=== PATIENT | male | born 1945 | race Caucasian/White ===

== ENCOUNTER 2024-02-10 12:10 | Emergency (ER) | payer MEDICARE, BC, SELFPAY ==
--- NOTE | 2024-02-10 12:54 | XR_ITS ---
Examination: CT abdomen with intravenous contrast CT pelvis with intravenous contrast 2-D coronal reconstructions 2-D sagittal reconstructions Date and time of exam:February 10, 2024 1459 hours INDICATIONS: Onset abdominal pain this week. CTDI: vol (mGy) 6.23 DLP: (mGycm) 369 COMPARISON: May 23, 2020 Technique: Multiple axial sections of the abdomen and pelvis have been obtained. 64 slice high-resolution scanner used. 3 mm axial sections have been obtained, post intravenous injection 60 cc [id number]-[id number] 2-D sagittal, coronal reconstructions obtained. Low dose protocols were performed. One or more of the following dose reduction techniques were used; automated exposure control, adjustment of the mA and/or KV according to patient size, use of iterative reconstruction technique. Findings: Atelectasis in the left lower lobe Intrahepatic biliary tract dilatation, mild Pneumobilia Stent satisfactory position Spleen not enlarged Pancreatic head is prominent, axial image 84 with necrotic center, AP dimension of the pancreatic head at least 39 mm No renal or ureteral calculi, no hydronephrosis Aorta normal size Normal appendix No bowel obstruction Urinary bladder intact Fat-containing inguinal hernia Diffuse advanced lumbar degenerative disc disease IMPRESSION: Enlarged pancreatic head with necrotic center as above Recommend MRI abdomen pancreas follow-up pre and postcontrast
[2024-02-10 13:31] LABS: Basophils # (Auto) 0.1 Thou/mm3 (0.0-0.2); Basophils % (Auto) 1 % (0-2.5); Eosinophils # (Auto) 0.1 Thou/mm3 (0.0-0.5); Eosinophils % (Auto) 1 % (0-10); Hematocrit 35.4 % (41.0-53.0); Hemoglobin 12.7 g/dL (13.5-16.0); Immature Granulocytes % (Auto) 1 % (0-0); Immature Granulocytes Auto 0.07 Thou/mm3 (0.00-0.00); Lymphocytes # (Auto) 0.7 Thou/mm3 (1.0-4.8); Lymphocytes % (Auto) 6 % (10-50); Mean Corpuscular HGB Conc 35.9 g/dl (31.0-37.0); Mean Corpuscular Hemoglobin 32.5 pg (25.0-35.0); Mean Corpuscular Volume 91 fL (80-100); Monocytes # (Auto) 0.9 Thou/mm3 (0.0-0.8); Monocytes % (Auto) 8 % (0-12); Neutrophils # (Auto) 9.3 Thou/mm3 (1.8-7.7); Neutrophils % (Auto) 84 % (37-80); Nucleated Red Blood Cell % 0 /100 WBC (0); Platelet Count 245 Thou/mm3 (140-440); RDW Standard Deviation 43.3 fL (35.1-43.9); Red Blood Count 3.91 Miln/mm3 (4.50-5.90); White Blood Count 11.1 Thou/mm3 (3.8-10.6)
[2024-02-10 13:45] LABS: Sed Rate (ESR) 58 mm/hr (0-20)
[2024-02-10 13:52] LABS: Alanine Aminotransferase 171 U/L (10-49); Albumin, Serum 4.1 gm/dL (3.4-4.8); Anion Gap 4 (7-16); Aspartate Amino Transferase 146 U/L (0-34); BUN/Creatinine Ratio 24 Ratio (12-20); Bilirubin,Total 1.2 mg/dL (0.3-1.2); Blood Urea Nitrogen 17 mg/dL (9-23); C-Reactive Protein 3.8 mg/dL (0.0-0.9); Calcium 8.9 mg/dL (8.3-10.6); Chloride 98 mMol/L (98-107); Creatinine (Component) 0.7 mg/dL (0.6-1.3); Glucose 178 mg/dL (74-106); Magnesium 1.9 mg/dL (1.6-2.6); Osmolality,Calculated 260 (275-295); Potassium 4.1 mMol/L (3.4-5.1); Sodium 127 mMol/L (136-145); Total Protein 6.9 gm/dL (5.7-8.2); eGFR > 60 See Note
[2024-02-10 13:53] LABS: Albumin/Globulin Ratio 1.5 (1.2-2.2); Alkaline Phosphatase 606 U/L (46-116); Amylase < 20 U/L (30-118); Calcium (Corrected) 8.9 mg/dL (8.5-10.1); Globulin 2.8 gm/dL (2.3-3.5); Lipase 21 U/L (12-53)
[2024-02-10 14:00] LABS: Procalcitonin 0.23 ng/ml (0.0-0.49)
[2024-02-10 14:53] LABS: Collection Type, Urine Clean Catch; Squamous Epithelial Cell,Urine 0 /hpf (0-5)
[2024-02-10 15:08] VITALS: BP 123/75; PULSE 81; RESP 18; TEMP 37.6; O2SAT 100; BMI 22.4
[2024-02-10 15:19] LABS: Bilirubin,Urine Negative (Negative); Blood,Urine Negative (Negative); Clarity,Urine Clear (Clear/Hazy); Color,Urine Lt-Yellow (Lt Yel-Yel); Glucose, Urine Negative (Negative); Ketones,Urine Negative (Negative); Leukocyte Esterase,Urine Negative (Negative); Nitrite,Urine Negative (Negative); PH,Urine 6.5 (5.0-7.0); Protein,Urine Negative (Neg - Trace); RBC,Urine 1 /hpf (0-3); Specific Gravity,Urine 1.008 (1.001-1.035); Urobilinogen,Urine Negative mg/dL (0.0-1.0); WBC,Urine 1 /hpf (0-5)
--- NOTE | 2024-02-10 15:57 | PD.EDABDPN ---
ED Abdominal Pain RME/HPI General Chief Complaint: Abdominal Pain Stated complaint: ABD PAIN, FEVER, CONFUSION, SHAKING Time seen by provider: 02/10/24 12:53 Arrival date/time: 02/10/24 12:10 RME / HPI RME / HPI narrative: This section includes all my notes and documentations, including HPI, PE, and ED course.? Cullen Castillo MD HPI: 78 year old male with history of chronic pancreatitis here with a couple day history of abdominal pain. Has trouble localizing the pain. Has difficulty describing the quality and quantity of the pain. Uncertain about exacerbating factors and relieving factors. No vomiting. No fever. Eating normally. Scared due to his chronic pancreatitis. No other complaints. ROS: All negative except as documented in HPI. Physical Exam: General:? Alert and oriented.? No acute distress when remaining still. Eyes:? Conjunctivae and lids clear.?? ENT:? No nasal congestion.? Neck:? Supple.?? Heart:? RRR.? Lungs:? No respiratory distress.? Good air movement.? No rhonchi, wheezing, rales.?? Abdomen:? Soft and nontender.? Normal bowel sounds.? No distension.? No rebound or guarding.?? Back:? No CVA tenderness.?? Skin:? Warm and dry.?? Neuro:? Alert and oriented X 3. I reviewed all diagnostic test results. My review of the abdominal CT report is no acute findings. Blood tests and urine tests are unremarkable. At this point, diagnoses include?chronic pancreatitis. No treatment here. He remained stable. Recommended more outpatient workup. Based on my best medical judgment, made decision no further evaluation or treatment indicated at this time.? Patient understands and agrees to the discharge instructions customized and printed, see below. Discharge Instructions from Dr. Castillo printed for you: 1. After extensive evaluation, your symptoms are most likely due to your chronic pancreatitis. 2. There is no emergency needing urgent surgery or intervention or hospitalization or transfer to another institution. 3. Try clear liquid diet for 24 hours then advance diet slowly as tolerated. Zofran for nausea/vomiting. For good hydration, increase oral fluid and maintain clear urine. If dark or yellow, increase oral fluid. Tylenol with codeine for severe pain. 4. See a private doctor on 02/11/2024. Ask to review all test results and official radiology reports, to make sure you receive all necessary follow-ups and monitoring. Ask for help with MRI imaging of your pancreas for better assessment. And ask for help seeing your specialists at [facility]. 5. Seek immediate medical care with worsening or with any concerns. Cullen Castillo MD Discharge Instructions from Dr. Castillo printed for you: 1. After extensive evaluation, your symptoms are most likely due to your chronic pancreatitis. 2. There is no emergency needing urgent surgery or intervention or hospitalization or transfer to another institution. 3. Try clear liquid diet for 24 hours then advance diet slowly as tolerated. Zofran for nausea/vomiting. For good hydration, increase oral fluid and maintain clear urine. If dark or yellow, increase oral fluid. Tylenol with codeine for severe pain. 4. See a private doctor on 02/11/2024. Ask to review all test results and official radiology reports, to make sure you receive all necessary follow-ups and monitoring. Ask for help with MRI imaging of your pancreas for better assessment. And ask for help seeing your specialists at [facility]. 5. Seek immediate medical care with worsening or with any concerns. Related Data Home Medications ?Medication ?Instructions ?Recorded ?Confirmed insulin glargine U-300 conc 300 25 unit subcut QDAY 05/23/20 04/05/23 unit/mL (1.5 mL) subcutaneous pen (Toujeo SoloStar U-300 Insulin) levothyroxine 50 mcg tablet 50 mcg PO QDAY 05/23/20 04/05/23 (Levoxyl) tamsulosin 0.4 mg capsule (Flomax) 0.4 mg PO HS 05/23/20 04/05/23 insulin glargine U-300 conc 300 unit subcut 09/09/20 04/05/23 unit/mL (1.5 mL) subcutaneous pen (Toujeo SoloStar U-300 Insulin) multivit,Ca,min-iron 8 mg-folic 1 tab PO DAILY 09/09/20 04/05/23 acid 200 mcg-lycopene 600 mcg tablet (Centrum Ultra Men's) aspirin 81 mg tablet,delayed 81 mg PO QDAY 01/20/22 04/05/23 release atorvastatin 80 mg tablet 80 mg PO QDAY 01/20/22 04/05/23 carvedilol 3.125 mg tablet 3.125 mg PO BID 01/20/22 04/05/23 Previous Rx's ?Medication ?Instructions ?Recorded acetaminophen 300 mg-codeine 30 mg 2 tab PO TID PRN pain #20 tabs 02/10/24 tablet Allergies Allergy/AdvReac Type Severity Reaction Status Date / Time No Known Allergies Allergy Unknown Verified 04/05/23 09:04 Course Quality Measures none Orders Category Date Time Status CT Screening NOW Care 02/10/24 12:54 Completed Saline [Insert IV] NOW Care 02/10/24 12:[address] abdomen pelvis w con Stat Exams 02/10/24 12:54 Completed Amylase Stat Lab 02/10/24 13:20 Completed CBC Stat Lab 02/10/24 13:20 Completed CMP [Comprehensive Metabolic Panel] Stat Lab 02/10/24 13:20 Completed CRP [C-Reactive Protein] Stat Lab 02/10/24 13:20 Completed ESR [Sed Rate (ESR)] Stat Lab 02/10/24 13:20 Completed Lactate (Lactic Acid) Stat Lab 02/10/24 13:20 Completed Lipase Stat Lab 02/10/24 13:20 Completed Magnesium Stat Lab 02/10/24 13:20 Completed Procalcitonin Stat Lab 02/10/24 13:20 Completed UA [Urinalysis] Stat Lab 02/10/24 14:43 Completed Vital Signs Vital signs: Vital Signs Temperature 99.6 F 02/10/24 15:08 Pulse Rate 81 02/10/24 15:08 Respiratory Rate 18 02/10/24 15:08 Blood Pressure 123/75 02/10/24 15:08 Pulse Oximetry (%) 100 02/10/24 15:08 Oxygen Delivery Method Room Air 02/10/24 15:08 Abdominal Pain MDM Patient data External records reviewed:: [facility] previous records Clinical information provided by:: patient and spouse Social determinants that could affect healthcare access:: none Patient has the following chronic illnesses:: chronic pancreatitis How is presenting disease/condition affected by chronic disease/condition?: exacerbated by Evaluation data The following diagnostics were reviewed and interpreted by me:: lab results and radiology exam(s) Lab and/or radiology exams considered but not ordered:: none Interpretation Summary: chronic pancreatitis Medications / Prescriptions Medications or Prescriptions considered but not ordered:: none Medication administrations:: none Consultations Consultation(s) initiated? (list below): No Diagnosis Differential diagnosis abdominal pain: acute appendicitis, calculus of kidney, constipation, diverticulitis, gastroenteritis, pancreatitis and small bowel obstruction Most likely diagnosis given after review of the tests above:: chronic pancreatitis Admission Indicated Admission indicated?: not indicated Explain why admission is indicated or not indicated:: admission criteria not met Admission Request Was there a request for admission?: No Disposition Plan Disposition Plan: Discharge Discharge Attestation Discharge Attestation: The patient and all family members were given an opportunity to ask questions and understood the discharge instructions. Discharge instructions specifically effects, indications for sooner follow up or return to the emergency department, and the expected course of current diagnosis. Patient condition: Stable Discharge Plan Plan Patient Disposition: HOME (Self Care) Prescriptions/Referrals Prescriptions/Med Rec: New acetaminophen-codeine 300-30 mg tablet 2 tab PO TID MDD 6 PRN (Reason: pain) Qty: 20 0RF No Action aspirin 81 mg tablet,delayed release (DR/EC) 81 mg PO QDAY carvedilol 3.125 mg tablet 3.125 mg PO BID Rx Instructions: must administer with a meal/food atorvastatin 80 mg tablet 80 mg PO QDAY tamsulosin [Flomax] 0.4 mg Capsule 0.4 mg PO HS levothyroxine [Levoxyl] 50 mcg Tablet 50 mcg PO QDAY Toujeo SoloStar U-300 Insulin 300 unit/mL (1.5 mL) Insulin Pen 25 unit SUBCUT QDAY Patient Comments: STATES HE TAKES IT AT 1630 EVERY DAY Centrum Ultra Men's 8 mg iron- 200 mcg-600 mcg Tablet 1 tab PO DAILY Toujeo SoloStar U-300 Insulin 300 unit/mL (1.5 mL) insulin pen SUBCUT Referrals: Martinez Delgado MD [Primary Care Provider] - In 1 week Problem List Clinical Impression: Chronic pancreatitis Patient/Caregiver Discharge Instructions Discharge Activity: activity as tolerated Education Materials: ED Pancreatitis Additional Instructions: Discharge Instructions from Dr. Castillo printed for you: 1. After extensive evaluation, your symptoms are most likely due to your chronic pancreatitis. 2. There is no emergency needing urgent surgery or intervention or hospitalization or transfer to another institution. 3. Try clear liquid diet for 24 hours then advance diet slowly as tolerated. Zofran for nausea/vomiting. For good hydration, increase oral fluid and maintain clear urine. If dark or yellow, increase oral fluid. Tylenol with codeine for severe pain. 4. See a private doctor on 02/11/2024. Ask to review all test results and official radiology reports, to make sure you receive all necessary follow-ups and monitoring. Ask for help with MRI imaging of your pancreas for better assessment. And ask for help seeing your specialists at [facility]. 5. Seek immediate medical care with worsening or with any concerns. Print Language: Estonian Stand Alone Forms: Ana Award Info., Patient Portal Info Letter
== END 2024-02-10 16:21 | disposition home or self-care (01) ==
PROVIDERS: Emergency Provider Emergency Medicine; PCP Family Medicine
DX: K86.1 Other chronic pancreatitis (principal)
CPT/HCPCS: 36415; 74177; 80053; 81001; 82150; 83605; 83690; 83735; 84145; 85025; 85652; 86140; 99285; A4649; Q9967

== ENCOUNTER 2024-03-10 20:24 | Emergency (ER) | payer MEDICARE, BC, SELFPAY ==
[2024-03-10 20:25] VITALS: BMI 22.1
[2024-03-10 20:36] VITALS: BP 128/75; PULSE 105; RESP 20; TEMP 39.1; O2SAT 96
--- NOTE | 2024-03-10 20:42 | XR_ITS ---
Examination: PA chest single view Technique: Upright PA chest single view Exam date and time: March 10, 20242049 hrs. Comparison May 23, 2020 Indications: Sepsis today. Findings: No lobar pneumonia Minor subsegmental atelectasis left base Normal heart size Median sternotomy wires Impression: No pneumonia identified
--- NOTE | 2024-03-10 20:43 | PD.EDRME ---
Rapid Medical Screening Exam RME Arrival date/time: 03/10/24 20:24 Chief Complaint: General Adult/Misc Complain Time Seen by Provider: 03/10/24 20:27 Vital signs: Vital Signs Temperature 102.4 F H 03/10/24 20:36 Pulse Rate 105 H 03/10/24 20:36 Respiratory Rate 20 03/10/24 20:36 Blood Pressure 128/75 03/10/24 20:36 Pulse Oximetry (%) 96 03/10/24 20:36 Oxygen Delivery Method Room Air 03/10/24 20:36 E Narrative: Fever, mild cough, epigastric pain since yesterday.
--- NOTE | 2024-03-10 20:44 | EKG_ITS ---
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
[2024-03-10 20:49] VITALS: TEMP 39.1
[2024-03-10] MEDS: ACETAMINOPHEN 500 MG TABLET 1000 MG PO (20:49)
[2024-03-10 21:13] LABS: Lactate (Lactic Acid) 0.9 mMol/L (0.4-2.0)
[2024-03-10 21:15] LABS: Basophils # (Auto) 0.1 Thou/mm3 (0.0-0.2); Basophils % (Auto) 1 % (0-2.5); Eosinophils % (Auto) 0 % (0-10); Hematocrit 33.4 % (41.0-53.0); Hemoglobin 11.9 g/dL (13.5-16.0); Immature Granulocytes % (Auto) 1 % (0-0); Immature Granulocytes Auto 0.09 Thou/mm3 (0.00-0.00); Lymphocytes # (Auto) 0.4 Thou/mm3 (1.0-4.8); Lymphocytes % (Auto) 4 % (10-50); Mean Corpuscular HGB Conc 35.6 g/dl (31.0-37.0); Mean Corpuscular Hemoglobin 32.7 pg (25.0-35.0); Mean Corpuscular Volume 92 fL (80-100); Monocytes # (Auto) 1.3 Thou/mm3 (0.0-0.8); Monocytes % (Auto) 11 % (0-12); Neutrophils # (Auto) 9.6 Thou/mm3 (1.8-7.7); Neutrophils % (Auto) 83 % (37-80); Nucleated Red Blood Cell % 0 /100 WBC (0); Platelet Count 209 Thou/mm3 (140-440); Red Blood Count 3.64 Miln/mm3 (4.50-5.90); White Blood Count 11.5 Thou/mm3 (3.8-10.6)
[2024-03-10 21:42] LABS: Alanine Aminotransferase 128 U/L (10-49); Albumin, Serum 3.9 gm/dL (3.4-4.8); Albumin/Globulin Ratio 1.3 (1.2-2.2); Alkaline Phosphatase 684 U/L (46-116); Anion Gap 6 (7-16); Aspartate Amino Transferase 120 U/L (0-34); BUN/Creatinine Ratio 36 Ratio (12-20); Bilirubin,Total 3.2 mg/dL (0.3-1.2); Blood Urea Nitrogen 25 mg/dL (9-23); Calcium 8.7 mg/dL (8.3-10.6); Calcium (Corrected) 8.8 mg/dL (8.5-10.1); Carbon Dioxide 24.3 mMol/L (20.0-31.0); Chloride 96 mMol/L (98-107); Creatinine (Component) 0.7 mg/dL (0.6-1.3); Estimated Creatinine Clearance 77.8 mL/min (>60); Globulin 3.1 gm/dL (2.3-3.5); Glucose 245 mg/dL (74-106); Lipase 23 U/L (12-53); Osmolality,Calculated 265 (275-295); Potassium 4.2 mMol/L (3.4-5.1); Procalcitonin 0.57 ng/ml (0.0-0.49); Sodium 126 mMol/L (136-145); Troponin I < 0.020 ng/mL (0.0-0.045); eGFR > 60 See Note
[2024-03-10 21:47] VITALS: BP 121/63; PULSE 85; RESP 16; TEMP 37.8; O2SAT 96
[2024-03-10 21:49] VITALS: TEMP 37.8
--- NOTE | 2024-03-10 22:00 | PC.NURSE ---
PT TO ER WITH C/O FEVER CHILLS 3 DAYS. PT WHO IS AT BED STATES PT APPEARS TO BE LOOKING YELLOW AND FIRST NOTICED IT ABOUT 1 WEEK AGO. PT REPORTS HE HAS BEEN HAVING INTERMITTENT ABD PAIN X 1 WEEK. PT HAS HX OF BILIARY STENT PLACED 10/2020. A/OX4. PT PLACED ON [facility], CALL LIGHT WITHIN REACH. BED AT LOWEST POSITION
--- NOTE | 2024-03-10 22:05 | EDNOTE_ITS ---
ED General RME/HPI General Chief complaint: General Adult/Misc Complain Stated complaint: FEVER,ABD PAIN Time Seen by Provider: 03/10/24 20:27 Arrival date/time: 03/10/24 20:24 RME / HPI RME / HPI narrative: Fever, mild cough, epigastric pain since yesterday. ------- Dr. 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 Patient states he last took Tylenol at 1400. states she started noticing the patient was yellow 1 week ago. Patient endorses having intermittent mild abdominal pain for the last 1 week. Patient denies any nausea, vomiting or any other associated symptoms. No known allergies. Patient takes baby aspirin, but is no longer on Plavix. Related Data Home Medications ?Medication ?Instructions ?Recorded ?Confirmed insulin glargine U-300 conc 300 25 unit subcut QDAY 05/23/20 04/05/23 unit/mL (1.5 mL) subcutaneous pen (Toujeo SoloStar U-300 Insulin) levothyroxine 50 mcg tablet 50 mcg PO QDAY 05/23/20 04/05/23 (Levoxyl) tamsulosin 0.4 mg capsule (Flomax) 0.4 mg PO HS 05/23/20 04/05/23 insulin glargine U-300 conc 300 unit subcut 09/09/20 04/05/23 unit/mL (1.5 mL) subcutaneous pen (Toujeo SoloStar U-300 Insulin) multivit,Ca,min-iron 8 mg-folic 1 tab PO DAILY 09/09/20 04/05/23 acid 200 mcg-lycopene 600 mcg tablet (Centrum Ultra Men's) aspirin 81 mg tablet,delayed 81 mg PO QDAY 01/20/22 04/05/23 release atorvastatin 80 mg tablet 80 mg PO QDAY 01/20/22 04/05/23 carvedilol 3.125 mg tablet 3.125 mg PO BID 01/20/22 04/05/23 Previous Rx's ?Medication ?Instructions ?Recorded acetaminophen 300 mg-codeine 30 mg 2 tab PO TID PRN pain #20 tabs 02/10/24 tablet Allergies Allergy/AdvReac Type Severity Reaction Status Date / Time No Known Allergies Allergy Unknown Verified 03/10/24 20:27 Review of Systems Review of Systems Systems Reviewed: All systems reviewed, normal except as documented Narrative Review of Systems: Gen: + fever, + chills, no weight loss EYES: No discharge, no visual changes, no pain HEENT: No ear pain, no congestion, no sore throat PULM: No shortness of breath, no cough, no congestion CV: No chest pain, no dyspnea on exertion, no palpitations GI: No nausea, no vomiting, no diarrhea, + pain, no constipation : No frequency, no urgency, no dysuria Musc/skel: No joint pain, no back pain Skin: No rash. Warm and dry. + jaundice Psyc: No hallucinations, no depression Heme/Lymph: No easy bleeding or bruising tendencies Neuro: No weakness, no headache Past Medical History Past Medical History NEUROLOGIC: Negative Neurological Disorders, Alzheimer's Disease, Seizures or Amyotrophic Lateral Sclerosis (ALS/Ainsley Gehrig's) CARDIAC: Positive Cardiac Disorders; Negative Congestive Heart Failure, Edema, Cellulitis or Varicose Veins RESPIRATORY: Negative Chronic Obstructive Pulmonary Disease (COPD), Asthma, Bronchitis, Emphysema or Pulmonary Embolism GASTROINTESTINAL: Positive Gastrointestinal Disorders, Pancreatitis (HOSP) and Gall Bladder Disease (LAP 2020); Negative Hepatitis GENITOURINARY: Positive Genitourinary Disorders and Benign Prostatic Hyperplasia; Negative Renal Disease MUSCULOSKELETAL: Positive Musculoskeletal Disorders, Arthritis and Carpal Tunnel Syndrome (RIGHT) ENT: Positive Cataracts (ABNER) ENDOCRINE: Positive Endocrine Disorders, Diabetes Mellitus Type 1, Diabetes Mellitus Type 2 and Hypothyroidism ([facility]) HEMATOLOGIC: Negative Blood Disorders or Sickle Cell Disease OTHER HISTORY: Positive Hospitalization (HOSP FOR PANCREATITIS) and Chicken Pox; Negative Autoimmune Disease, Developmental Delay, Shingles, Falls, Blood Transfusions, Blood Transfusion Reaction, Anesthesia Reactions, Organ Transplant, Chemotherapy, MRSA, Measles, Mumps or Cancer Family History FAMILY HISTORY: Positive Family Cardiac Disorders and Family Surgery; Negative Family Psychiatric Problems, Family Respiratory Disorders, Family Gastrointestinal Problems, Family Cancer or Family Anesthesia Reaction Surgical History SURGICAL: Positive Eye Surgery and Vasectomy; Negative Cardiac Surgery, Pacemaker, Endocrine Surgery, Adenoidectomy, Abdominal Surgery, Arthroscopy, Neurologic Surgery or Organ Transplant Social History SMOKING STATUS: Never smoker SUBSTANCE USE: does not use ED Exam Narrative Physical exam: GENERAL APPEARANCE: AxOx4, generally well-appearing, no acute distress. HEENT: NC, AT. MMM. EOMI, scleral icterus, oropharynx clear. NECK: Supple without lymphadenopathy. No stiffness or restricted ROM. HEART: Normal rate and regular rhythm, normal S1/S1, no m/r/g LUNGS: CTAB, moving air well. No crackles or wheezes are heard. ABDOMEN: Soft, nontender, nondistended with good bowel sounds heard. BACK: No midline C/T/L spine pain or deformity, No CVAT, no obvious deformity. EXTREMITIES: Without cyanosis, clubbing or edema. MUSCULOSKELETAL: FROM of all major joints, no chest tenderness NEUROLOGICAL: Grossly nonfocal. Alert and oriented, moving all 4 extremities. CN not formally tested but appear grossly intact. Observed to ambulate with normal gait. Skin: Warm and dry without any rash. Jaundiced. Course Course Course Narrative: CXR is ordered for determining the etiology of fever. No IVF ordered. Patient is not septic. The patient was placed in ED observation care at 03/10/24 at 2200 hours. The patient was placed in ED observation care because of pending MRCP. The patients past medical history, social history, and family history were reviewed. The plan of care will include serial examinations. 0600: Care signed out to Dr. Castillo (emergency physician). Past medical, surgical, social and family history reviewed. Vitals and home medications reviewed. Results and treatment plan discussed. They will assume the care of the patient at this time and will follow the patient, pending MRCP. At this time, observation has ended. Quality Measures none Orders Category Date Time Status Bedside COVID-19 Antigen Test NOW Care 03/10/24 20:42 Completed Bedside Influenza A&B Antigen Test NOW Care 03/10/24 20:42 Completed EKG (ED ONLY) *Do not use* NOW Care 03/10/24 20:44 Completed MRI Screening NOW Care 03/10/24 22:51 Active CXR [XR chest 1V] Stat Exams 03/10/24 20:42 Completed EKG (ED Only) Stat Exams 03/10/24 20:44 Draft MR MRCP Stat Exams 03/10/24 Ordered Blood Culture (Lab) Stat Lab 03/10/24 20:55 Received CBC Stat Lab 03/10/24 20:59 Completed CBC Stat Lab 03/11/24 05:14 Ordered CMP [Comprehensive Metabolic Panel] Stat Lab 03/10/24 20:59 Completed CMP [Comprehensive Metabolic Panel] Stat Lab 03/11/24 05:14 Ordered Lactate (Lactic Acid) Stat Lab 03/10/24 20:59 Completed Lipase Stat Lab 03/10/24 20:59 Completed Lipase Stat Lab 03/11/24 05:14 Ordered Procalcitonin Stat Lab 03/10/24 20:59 Completed Troponin I Stat Lab 03/10/24 20:59 Completed UA [Urinalysis] Stat Lab 03/11/24 01:07 Completed Urine Culture Stat Lab 03/11/24 01:07 Received Acetaminophen Tab [Tylenol ES Tab] Med 03/10/24 20:42 Discontinued 1,000 mg PO X1 ONE Vital Signs Vital signs: Vital Signs Temperature 102.4 F H 03/10/24 20:36 Pulse Rate 105 H 03/10/24 20:36 Respiratory Rate 20 03/10/24 20:36 Blood Pressure 128/75 03/10/24 20:36 Pulse Oximetry (%) 96 03/10/24 20:36 Oxygen Delivery Method Room Air 03/10/24 20:36 Pulse ox is 96% on room air, which is normal according to my interpretation. [facility] Patient data External records reviewed:: [facility] previous records (Per chart review, patient was seen here on 02/10/24 for chronic pancreatitis.) and Other (specify) (Reviewed outpatient [facility] radiology reports that are with the patient's , which showed a CBD stricture and no malignancies.) Clinical information provided by:: patient Social determinants that could affect healthcare access:: none Patient has the following chronic illnesses:: pancreatitis, DM, BPH, hypothyroidism How is presenting disease/condition affected by chronic disease/condition?: u neffected by Evaluation data The following diagnostics were reviewed and interpreted by me:: lab results, radiology exam(s) and EKG tracing(s) Lab and/or radiology exams considered but not ordered:: none Interpretation Summary: WBC count is elevated at 11.5, Sodium is low at 126, Lipase is normal, Total Bilirubin is elevated at 3.2, LFTs are elevated, Lactic Acid is normal, Procalcitonin is elevated at 0.57, according to my interpretation. EKG done at 2113, NSR, rate of 93, normal intervals, normal axis, no acute ST or T wave changes, according to my interpretation. ----- [place] [facility] Report Signed Patient: [facility]. Record#: [id number] Birthdate: 1945 Age/Sex: 78 / M [facility] Attending Dr: Ordering Physician: Mervin Andersen PA-C Date of Service: 03/10/24 Procedure(s): XR chest 1V Accession Number(s): [id number] cc: Rayray Ceron MD; Mervin Andersen PA-C~ Examination: PA chest single view Technique: Upright PA chest single view Exam date and time: March 10, 20242049 hrs. Comparison May 23, 2020 Indications: Sepsis today. Findings: No lobar pneumonia Minor subsegmental atelectasis left base Normal heart size Median sternotomy wires Impression: No pneumonia identified Dictated By: Rayray Ceron MD Signed By: <Electronically signed by Rayray Ceron MD in OV> 03/10/24 2114 Medications Medications considered but not ordered:: none Medication administrations:: Medication Administration History Discontinued Medications Acetaminophen (Acetaminophen 500 Mg Tablet) 1,000 mg PO X1 ONE Stop: 03/10/24 20:43 Last Admin: 03/10/24 20:49 Dose: 1,000 mg Documented By: OA see above Consultations Consultation(s) initiated? (list below): No Diagnosis Differential Diagnosis ED Complaint MDM: CBD stricture, CBD obstruction, choledocolithiasis Most likely diagnosis given after review of the tests above:: final dx pending at signout. Admission Indicated Admission indicated?: not indicated Explain why admission is indicated or not indicated:: Patient pending MRCP in the morning. Admission Request Was there a request for admission?: No Disposition Plan Disposition Plan: other (specify) (Signed out to Dr. Castillo at 0600 pending MRCP.) Medical Decision Making MDM Narrative MDM Narrative: Scribe Attestation: 03/10/24 Vicky Shelton am scribing for and in the presence of Dr. Cantor. Differential Diagnosis Differential Diagnosis: CBD stricture, CBD obstruction, choledocolithiasis Lab Data 03/10/24 20:59 03/10/24 20:59 Labs: Lab Results 01/10/25 01/11/25 Range/Units 20:59 01:07 WBC 11.5 H (3.8-10.6) Thou/mm3 RBC 3.64 L (4.50-5.90) Miln/mm3 Hgb 11.9 L (13.5-16.0) g/dL Hct 33.4 L (41.0-53.0) % MCV 92 (80-100) fL MCH 32.7 (25.0-35.0) pg MCHC 35.6 (31.0-37.0) g/dl RDW Std Deviation 46.0 H (35.1-43.9) fL Plt Count 209 D (140-440) Thou/mm3 Neut % (Auto) 83 H (37-80) % Lymph % (Auto) 4 L (10-50) % Smith % (Auto) 11 (0-12) % Eos % (Auto) 0 (0-10) % Baso % (Auto) 1 (0-2.5) % Neut # (Auto) 9.6 H (1.8-7.7) Thou/mm3 Lymph # (Auto) 0.4 L (1.0-4.8) Thou/mm3 Smith # (Auto) 1.3 H (0.0-0.8) Thou/mm3 Eos # (Auto) 0.0 (0.0-0.5) Thou/mm3 Baso # (Auto) 0.1 (0.0-0.2) Thou/mm3 Immature Gran # (Auto) 0.09 H (0.00-0.00) Thou/mm3 Absolute Nucleated RBC 0.00 (0.00-0.00) Thou/mm3 Immature Gran % 1 H (0-0) % Nucleated RBC % 0 (0) /100 WBC Sodium 126 L (136-145) mMol/L Potassium 4.2 (3.4-5.1) mMol/L Chloride 96 L (98-107) mMol/L Carbon Dioxide 24.3 (20.0-31.0) mMol/L Anion Gap 6 L (7-16) BUN 25 H (9-23) mg/dL Creatinine 0.7 (0.6-1.3) mg/dL Estim Creat Clear Calc 77.8 (>60) mL/min eGFR > 60 (60 - ) See Note BUN/Creatinine Ratio 36 H (12-20) Ratio Glucose 245 H (74-106) mg/dL Calculated Osmolality 265 L (275-295) Lactic Acid 0.9 (0.4-2.0) mMol/L Calcium 8.7 (8.3-10.6) mg/dL Corrected Calcium 8.8 (8.5-10.1) mg/dL Total Bilirubin 3.2 H (0.3-1.2) mg/dL AST 120 H (0-34) U/L ALT 128 H (10-49) U/L Alkaline Phosphatase 684 H (46-116) U/L Troponin I < 0.020 (0.0-0.045) ng/mL Total Protein 7.0 (5.7-8.2) gm/dL Albumin 3.9 (3.4-4.8) gm/dL Globulin 3.1 (2.3-3.5) gm/dL Albumin/Globulin Ratio 1.3 (1.2-2.2) Lipase 23 (12-53) U/L Procalcitonin 0.57 H (0.0-0.49) ng/ml Ur Collection Type Clean Catch Urine Color Yellow (Lt Yel-Yel) Urine Clarity Clear (Clear/Hazy) Urine pH 6.5 (5.0-7.0) Ur Specific [employer] 1.024 (1.001-1.035) Urine Protein Trace (Neg - Trace) Urine Glucose (UA) 2+ A (Negative) Urine Ketones Negative (Negative) Urine Blood Negative (Negative) Urine Nitrite Negative (Negative) Urine Bilirubin Negative (Negative) Urine Urobilinogen (Auto) 4.0 (0.0-1.0) mg/dL Ur Leukocyte Esterase Negative (Negative) Urine RBC 4 H (0-3) /hpf Urine WBC 2 (0-5) /hpf Ur Squamous Epith Cells 0 (0-5) /hpf Urine Bacteria None (None) Discharge Plan Prescriptions/Referrals Prescriptions/Med Rec: No Action aspirin 81 mg tablet,delayed release (DR/EC) 81 mg PO QDAY carvedilol 3.125 mg tablet 3.125 mg PO BID Rx Instructions: must administer with a meal/food atorvastatin 80 mg tablet 80 mg PO QDAY tamsulosin [Flomax] 0.4 mg Capsule 0.4 mg PO HS levothyroxine [Levoxyl] 50 mcg Tablet 50 mcg PO QDAY Toujeo SoloStar U-300 Insulin 300 unit/mL (1.5 mL) Insulin Pen 25 unit SUBCUT QDAY Patient Comments: STATES HE TAKES IT AT 1630 EVERY DAY Centrum Ultra Men's 8 mg iron- 200 mcg-600 mcg Tablet 1 tab PO DAILY Toujeo SoloStar U-300 Insulin 300 unit/mL (1.5 mL) insulin pen SUBCUT acetaminophen-codeine 300-30 mg tablet 2 tab PO TID MDD 6 PRN (Reason: pain) Qty: 20 0RF Referrals: Martinez Delgado MD [Primary Care Provider] - In 1 week Problem List Clinical Impression: Jaundice Patient/Caregiver Discharge Instructions Print Language: Swedish
[2024-03-10 23:30] VITALS: BP 114/59; PULSE 76; RESP 19; TEMP 36.8; O2SAT 94
[2024-03-11] VITALS (9 sets, daily range): BP systolic 109–132; BP diastolic 56–70; PULSE 63–86; RESP 14–20; TEMP 36.5–37.6; O2SAT 97–98
--- NOTE | 2024-03-11 | XR_ITS ---
MRI abdomen, without contrast. MRCP Date and time of exam: July 2019 at 0653 hrs. Comparison MRCP May 24, 2020 Indications: Jaundice one week history cholecystectomy and stent placement September 2020, chronic pancreatitis diagnosis Technique: Multiple axial and coronal images of the abdomen have been obtained with the Siemens 1.5T MRI scanner. Images obtained included T1 weighted transverse images, T2-weighted transverse images, T2-weighted transverse images fat-suppressed, T2 weighted haste fat suppressed transverse images, T1 weighted images, in and out of phase images, T2-weighted coronal images, breath hold, T2 weighted haze coronal images as well as T2 weighted coronal thick slab images, MRCP. Findings: The images are degraded by patient motion Intrahepatic biliary tract dilatation Absent gallbladder Enlarged common hepatic common bile duct each measuring up to 11 mm Multiple intraluminal masses in the common bile duct, for instance axial image 16 of 28, the largest measuring at least 7 mm Meniscus defect in the distal common bile duct coronal image 13 consistent with an impacted stone Pancreatic duct is enlarged The ampulla, 4 mm No peripancreatic edema Spleen is not enlarged Aorta normal size Perinephric stranding No hydronephrosis Impression: Significant extrahepatic biliary tract dilatation which appears to be secondary to multiple stones in the common hepatic common bile duct, follow-up abdomen film would be helpful to determine if part of the intraluminal masses in the common bile duct in this case represent a biliary stent
[2024-03-11 01:13] LABS: Collection Type, Urine Clean Catch; Squamous Epithelial Cell,Urine 0 /hpf (0-5)
--- NOTE | 2024-03-11 01:35 | PC.NURSE ---
PT AMBULATED TO THE RESTROOM WITH A STEADY GAIT, WITHOUT ANY ISSUES.
[2024-03-11 01:59] LABS: Bilirubin,Urine Negative (Negative); Blood,Urine Negative (Negative); Clarity,Urine Clear (Clear/Hazy); Color,Urine Yellow (Lt Yel-Yel); Glucose, Urine 2+ (Negative); Ketones,Urine Negative (Negative); Leukocyte Esterase,Urine Negative (Negative); Nitrite,Urine Negative (Negative); PH,Urine 6.5 (5.0-7.0); Protein,Urine Trace (Neg - Trace); RBC,Urine 4 /hpf (0-3); Specific Gravity,Urine 1.024 (1.001-1.035); WBC,Urine 2 /hpf (0-5)
[2024-03-11 06:24] LABS: Basophils % (Auto) 0 % (0-2.5); Eosinophils # (Auto) 0.1 Thou/mm3 (0.0-0.5); Eosinophils % (Auto) 1 % (0-10); Hematocrit 29.8 % (41.0-53.0); Hemoglobin 10.6 g/dL (13.5-16.0); Immature Granulocytes % (Auto) 0 % (0-0); Immature Granulocytes Auto 0.04 Thou/mm3 (0.00-0.00); Lymphocytes # (Auto) 0.6 Thou/mm3 (1.0-4.8); Lymphocytes % (Auto) 6 % (10-50); Mean Corpuscular HGB Conc 35.6 g/dl (31.0-37.0); Mean Corpuscular Hemoglobin 32.6 pg (25.0-35.0); Mean Corpuscular Volume 92 fL (80-100); Monocytes # (Auto) 1.3 Thou/mm3 (0.0-0.8); Monocytes % (Auto) 14 % (0-12); Neutrophils # (Auto) 7.8 Thou/mm3 (1.8-7.7); Neutrophils % (Auto) 80 % (37-80); Nucleated Red Blood Cell % 0 /100 WBC (0); Platelet Count 127 Thou/mm3 (140-440); RDW Standard Deviation 45.9 fL (35.1-43.9); Red Blood Count 3.25 Miln/mm3 (4.50-5.90); White Blood Count 9.8 Thou/mm3 (3.8-10.6)
--- NOTE | 2024-03-11 06:47 | PC.NURSE ---
Pt to MRI at this time.
--- NOTE | 2024-03-11 06:48 | PC.NURSE ---
PT TO MRI VIA WHEELCHAIR AT THIS TIME
[2024-03-11 07:04] LABS: Alanine Aminotransferase 105 U/L (10-49); Albumin, Serum 3.5 gm/dL (3.4-4.8); Albumin/Globulin Ratio 1.4 (1.2-2.2); Alkaline Phosphatase 562 U/L (46-116); Anion Gap 4 (7-16); Aspartate Amino Transferase 93 U/L (0-34); BUN/Creatinine Ratio 36 Ratio (12-20); Blood Urea Nitrogen 18 mg/dL (9-23); Calcium 8.3 mg/dL (8.3-10.6); Calcium (Corrected) 8.7 mg/dL (8.5-10.1); Carbon Dioxide 24.7 mMol/L (20.0-31.0); Chloride 99 mMol/L (98-107); Creatinine (Component) 0.5 mg/dL (0.6-1.3); Estimated Creatinine Clearance 108.9 mL/min (>60); Globulin 2.5 gm/dL (2.3-3.5); Glucose 127 mg/dL (74-106); Lipase 20 U/L (12-53); Osmolality,Calculated 260 (275-295); Potassium 3.7 mMol/L (3.4-5.1); Sodium 128 mMol/L (136-145); eGFR > 60 See Note
--- NOTE | 2024-03-11 07:30 | PC.NURSE ---
[facility] CONTACTED FOR POSSIBLE TRANSFER, WE REQUESTING GI SERVICES FOR A PANCREATIC STENT THAT IS CLOTTED AND IS CAUSING AN INFECTION, PAPER WORK FAXED AND REPORT GIVEN TO TRANSFER NURSE
--- NOTE | 2024-03-11 07:57 | XR_ITS ---
Examination: Abdomen AP single view Technique: AP portable supine abdomen, single view Exam date and time: March 11, 2024 at 0811 hrs. Indications: Abdominal pain and jaundice this week Findings: Biliary stent is identified Mild small bowel ileus pattern Surgical clips in the upper right abdomen Impression: Biliary stent is identified, the presence of the stent significantly limits MRCP assessment of the common bile duct Consider HIDA scan follow-up to support diagnosis of obstruction common bile duct with multiple stones ERCP follow-up is the best diagnostic test to confirm no common bile duct obstruction
[2024-03-11] MEDS: KETOROLAC INJ 30 MG/ML VIAL IVP (08:48)
[2024-03-11] MEDS: SODIUM CHLORIDE 0.9% 1000 ML 1,000 ML 999 ML IV (08:48)
[2024-03-11] MEDS: PIPER/TAZO INJ 3.375 GM in SODIUM CHLORIDE 0.9% (P) 50 ML IV (08:49)
[2024-03-11] MEDS: carVEDILOL 3.125 MG TABLET PO (09:19)
[2024-03-11] MEDS: TAMSULOSIN HCL 0.4 MG CAPSULE PO (09:19)
[2024-03-11] MEDS: DEXTROSE 5%-0.45% NS 500 ML 125 ML IV (09:21)
[2024-03-11] MEDS: LEVOTHYROXINE SODIUM 25 MCG TABLET 50 MCG PO (09:21)
[2024-03-11] MEDS: ASPIRIN EC 81 MG TABEC PO (09:23)
--- NOTE | 2024-03-11 10:41 | PC.NURSE ---
[facility] ACCEPTED PATIENT BUT THEY DONT HAVE A BED THE MOMENT, THEY WILL CALL BACK WHEN BED AVAILABLE
--- NOTE | 2024-03-11 11:56 | PC.NURSE ---
PATIENT IS ACCEPTED TO [facility] IN [place], NUMBER TO CALL FOR BED AVAILABILITY IS [phone]
--- NOTE | 2024-03-11 12:24 | ESCONSULT_ITS ---
HPI Consultation - Hospitalist Data of Consult Primary Care Provider: Martinez Delgado MD Consult Narrative History of present illness: Patient is a 78 years old male with past medical history of CAD status post CABG, Diabetes mellitus type 2, cholecystectomy, status post CBD stent who presented to the ED with complaint of fever for last 3 to 4 days.? Patient had fever at home on and off, which persisted despite Tylenol and family advised him to visit the ED.? He also had mild abdominal discomfort but denied any nausea, vomiting or diarrhea.? Also states that his had noticed yellowish discoloration of the skin. In the ED, patient was found to be febrile with temperature of 102.4 ?F, also had elevated pulse at 105.? Blood pressure and oxygen saturation in room air were within normal limits.? Initial lab results showed WBC of 11.5, hemoglobin 11.9, sodium 126, glucose 245, total bilirubin 3.2, AST 120, ALT 128, ALP 684.? He also has procalcitonin positive at 0.57.? Urinalysis shows 2+ glucose.? MRCP was done, which shows intrahepatic biliary tract, common hepatic, common bile duct dilation.? It also showed multiple stones in common hepatic and common bile duct.? Biliary stent was also identified on abdominal x-ray. Patient received 1 L normal saline, Tylenol 1000 mg, ketorolac 30 mg IV, Zosyn 3.375 mg, carvedilol 3.125 mg, tamsulosin 0.4 mg, levothyroxine 50 mcg, aspirin 81 mg and was started on D5 half NS at 125 cc/h.? Blood cultures and urine cultures have been obtained as well. Past medical history: Coronary artery disease, diabetes mellitus type 2, patient also likely has hypothyroidism Past surgical history: CABG, cholecystectomy, CBD stent placement, surgery for left carpal tunnel syndrome Social history: Used to drink alcohol, stopped 2 years back. Used to smoke cigars occasionally, stop few months back. Denies any illicit drug use. cc:: cc: Review of Systems Review of Systems Narrative Review of Systems: CONSTITUTIONAL: Denies weight loss, +fever and chills. HEENT: Denies changes in vision and hearing. RESPIRATORY: Denies SOB and positive for cough. CV: Denies palpitations and Chest Pain. GI: Denies for blood in stool, denies vomitting, +abdominal pain. : Denies dysuria and urinary frequency. MSK: Denies myalgia and joint pain. KIN: +yellowish discoloration, Denies rash and positive for pruritus/itching. NEUROLOGICAL: Denies headache and syncope. PSYCHIATRIC: Denies recent changes in mood. Denies anxiety and depression. Meds Home Medications and Allergies Home Medications ?Medication ?Instructions ?Recorded ?Confirmed ?Type insulin glargine U-300 conc 300 25 unit subcut QDAY 05/23/20 04/05/23 History unit/mL (1.5 mL) subcutaneous pen (Toujeo SoloStar U-300 Insulin) levothyroxine 50 mcg tablet 50 mcg PO QDAY 05/23/20 04/05/23 History (Levoxyl) tamsulosin 0.4 mg capsule (Flomax) 0.4 mg PO HS 05/23/20 04/05/23 History insulin glargine U-300 conc 300 unit subcut 09/09/20 04/05/23 History unit/mL (1.5 mL) subcutaneous pen (Toujeo SoloStar U-300 Insulin) multivit,Ca,min-iron 8 mg-folic 1 tab PO DAILY 09/09/20 04/05/23 History acid 200 mcg-lycopene 600 mcg tablet (Centrum Ultra Men's) aspirin 81 mg tablet,delayed 81 mg PO QDAY 01/20/22 04/05/23 History release atorvastatin 80 mg tablet 80 mg PO QDAY 01/20/22 04/05/23 History carvedilol 3.125 mg tablet 3.125 mg PO BID 01/20/22 04/05/23 History Allergies Allergy/AdvReac Type Severity Reaction Status Date / Time No Known Allergies Allergy Unknown Verified 03/10/24 20:27 Exam Vital Signs Temp Pulse Resp BP Pulse Ox O2 Del Method 98.7 F 73 18 116/58 L 97 Room Air 03/11/24 08:01 03/11/24 10:22 03/11/24 10:22 03/11/24 10:22 03/11/24 10:22 03/11/24 10:22 Narrative General: Awake and in no acute distress. Alert and oriented. Saturating well on room air HEENT: Normocephalic, atraumatic, mucous membranes moist. Yellow discoloration bilateral eyes. Heart: Regular rate and rhythm, no murmurs. Lungs: Clear to auscultation with no wheezing or crackles. Abdomen: Mild discomfort around periumbilical region on palpation, bowel sounds present over all quadrants Neurologic: No gross neurological deficit, and patient able to move all 4 extremities. Skin: No rash or ecchymoses. Yellow discoloration noted. Results - Hospitalist Labs Diagrams: 03/11/24 06:17 03/11/24 06:17 Labs: Short CBC 03/10/24 03/11/24 Range/Units 20:59 06:17 WBC 11.5 H 9.8 (3.8-10.6) Thou/mm3 Hgb 11.9 L 10.6 L (13.5-16.0) g/dL Hct 33.4 L 29.8 L (41.0-53.0) % Plt Count 209 D 127 L D (140-440) Thou/mm3 BMP 03/10/24 03/11/24 20:59 06:17 Sodium 126 L 128 L Potassium 4.2 3.7 D Chloride 96 L 99 Carbon Dioxide 24.3 24.7 BUN 25 H 18 Creatinine 0.7 0.5 L Glucose 245 H 127 H D Calcium 8.7 8.3 Cardiac Enzymes 03/10/24 Range/Units 20:59 Troponin I < 0.020 (0.0-0.045) ng/mL Liver Function 03/10/24 03/11/24 Range/Units 20:59 06:17 Total Bilirubin 3.2 H 3.0 H (0.3-1.2) mg/dL AST 120 H 93 H (0-34) U/L ALT 128 H 105 H (10-49) U/L Alkaline Phosphatase 684 H 562 H D (46-116) U/L Albumin 3.9 3.5 (3.4-4.8) gm/dL Urine 03/11/24 Range/Units 01:07 Urine Color Yellow (Lt Yel-Yel) Urine Clarity Clear (Clear/Hazy) Urine pH 6.5 (5.0-7.0) Ur Specific [place] 1.024 (1.001-1.035) Urine Protein Trace (Neg - Trace) Urine Glucose (UA) 2+ A (Negative) Assessment & Plan -Hospitalist Additional Plan Additional Plan: Patient is a 78 years old male with past medical history of CAD status post CABG, diabetes mellitus type 2, cholecystectomy, status post CBD stent who presented to the ED with complaint of fever. Found to be septic with elevated temperature and tachycardia. Also found to have multiple stones on hepatic biliary tree and CBD along with CBD dilation, elevated bilirubin, liver enzymes with cholestatic pattern. Hospitalist team was consulted for possible admission and further management. #Sepsis #Acute cholangitis #Choledocholithiasis #History of CBD stent and cholecystectomy Patient presented with fever for multiple days with abdominal discomfort and yellowish discoloration of eyes and skin, patient has a history of cholecystectomy and CBD stent placement Found to have temperature of 102.4, pulse 105, WBC count 11.5, meeting SIRS criteria 2/4. Liver panel showed total bilirubin of 3.2, AST 120, ALT 128 and ALP 684 MRCP was done, which shows intrahepatic biliary tract, common hepatic, common bile duct dilation.? It also showed multiple stones in common hepatic and common bile duct.? Biliary stent was also identified on abdominal x-ray. Received 1 L of normal saline bolus and 500 cc of D5 half NS at 125 cc/h in the ED, we will add 500 cc of normal saline bolus and started on maintenance normal saline at 70 cc/h. Received a dose of IV Zosyn 3.375 mg IV Recommended to continue with IV Zosyn 3.375 mg every 6 hours Pain control as needed Blood cultures have been ordered Recommended ERCP within 24 to 48 hours given patient falls under moderate acute cholangitis (temperature more than 102.2, age more than 75) #Hypovolemic hypoosmolar hyponatremia Patient has sodium of 128(corrected sodium 129) Received 1 L normal saline bolus in the ED We will add 500 cc of normal saline bolus and continue maintenance normal saline at 70 cc/h Continue to trend sodium levels #CAD status post CABG Holding statin in setting of elevated liver enzymes, cholestasis Holding home beta-blockers as patient has soft blood pressures, plan for restart if patient's blood pressure improves #Diabetes mellitus type 2 Will start on insulin sliding scale Hypoglycemia protocol in place #Hypothyroidism Patient has levothyroxine listed on his home medicine, continue with levothyroxine 50 mcg daily Given patient's history of CBD stent placement, fever, yellowish discoloration; Sepsis with elevated temperature, pulse, WBC count of 11.5; Cholestatic pattern of liver enzymes; MRCP finding of multiple stones and biliary tree, intrahepatic, common hepatic and bile duct dilation; patient has high suspicion for acute cholangitis. Hospitalist service was consulted for possible admission but given patient's condition, patient will need ERCP within 24 to 48 hours but we do not have ERCP service in house. Recommended transfer to higher center where ERCP services are available. Thank you for letting us involve in the patient care. We will follow the patient with you until he remains here. Please feel free to call us with any questions. Tigist Todd MD Quality Measures Quality Measures none Advance care planning discussed with:: patient
[2024-03-11] MEDS: PIPER/TAZO 3.375 GM 50 ML IV (13:23)
[2024-03-11] MEDS: SODIUM CHLORIDE 0.9% 500 ML 500 ML 999 ML IV (13:24)
--- NOTE | 2024-03-11 13:40 | PC.NURSE ---
[facility] called to request a transfer since we dont have a time or date of [facility] having a bed for this patient, packet is faxed and report is given to [facility]
--- NOTE | 2024-03-11 13:43 | PC.NURSE ---
[facility] called to request a transfer, packet faxed and trinidad keita from transfer states she will review the packet and talk to her house wrecker and will call back
--- NOTE | 2024-03-11 14:15 | PC.NURSE ---
clinical update given to [facility] nurse ivania, she states we will receive a call when bed available
[2024-03-11] MEDS: SODIUM CHLORIDE 0.9% 1000 ML 1,000 ML 70 ML IV (14:32)
--- NOTE | 2024-03-11 14:41 | PD.IMCONS ---
HPI Data of Consult Primary Care Provider: Martinez Delgado MD Consult Narrative Reason for consult: Fever, abnormal LFTs, abnormal MRCP History of present illness: 78 years old male came into the emergency room with fever which was documented in the ER to be 102.7 Patient does have a history of cholecystectomy also history of ERCP with placement of a CBD stent MRCP done in the ER shows extrahepatic biliary dilatation with multiple filling defects and an impacted stone at the distal common bile duct with meniscus ERCP was done at [facility] The ER physician had already called the [facility] and they have accepted the patient but wanted the patient to be admitted over here for IV antibiotics as a case of cholangitis After discussion of the case with the ER physician I told him it is difficult to transfer the patient from the floor ER patients have a priority And it is extremely difficult to get a bed at [facility] when they are 120% capacity My suggestion was to keep the patient in the ER till he is transferred or discussed with the internal medicine team if they will accept the patient admission as we have no ERCP capability here at the moment cc:: cc: Review of Systems Review of Systems Systems Reviewed: All systems reviewed, normal except as documented Past Medical History Surgical History OTHER SURGICAL HX: Coronary artery disease status post CABG Diabetes mellitus type [address] scan abdomen pelvis 02/10/2024 showed a 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 that was 4 cm in size Meds Home Medications and Allergies Home Medications ?Medication ?Instructions ?Recorded ?Confirmed ?Type insulin glargine U-300 conc 300 25 unit subcut QDAY 05/23/20 04/05/23 History unit/mL (1.5 mL) subcutaneous pen (Toujeo SoloStar U-300 Insulin) levothyroxine 50 mcg tablet 50 mcg PO QDAY 05/23/20 04/05/23 History (Levoxyl) tamsulosin 0.4 mg capsule (Flomax) 0.4 mg PO HS 05/23/20 04/05/23 History insulin glargine U-300 conc 300 unit subcut 09/09/20 04/05/23 History unit/mL (1.5 mL) subcutaneous pen (Toujeo SoloStar U-300 Insulin) multivit,Ca,min-iron 8 mg-folic 1 tab PO DAILY 09/09/20 04/05/23 History acid 200 mcg-lycopene 600 mcg tablet (Centrum Ultra Men's) aspirin 81 mg tablet,delayed 81 mg PO QDAY 01/20/22 04/05/23 History release atorvastatin 80 mg tablet 80 mg PO QDAY 01/20/22 04/05/23 History carvedilol 3.125 mg tablet 3.125 mg PO BID 01/20/22 04/05/23 History Allergies Allergy/AdvReac Type Severity Reaction Status Date / Time No Known Allergies Allergy Unknown Verified 03/10/24 20:27 Exam Vital Signs Temp Pulse Resp BP Pulse Ox O2 Del Method 98.8 F 68 18 114/65 98 Room Air 03/11/24 13:58 03/11/24 13:58 03/11/24 13:58 03/11/24 13:58 03/11/24 13:58 03/11/24 13:58 Constitutional Comments: Chronically ill-appearing Routine Respiratory Exam Comments: Normal to auscultation Routine Abdominal Exam Comments: Soft nontender positive bowel sounds Results Labs 03/11/24 06:17 03/11/24 06:17 Labs: Short CBC 03/10/24 03/11/24 Range/Units 20:59 06:17 WBC 11.5 H 9.8 (3.8-10.6) Thou/mm3 Hgb 11.9 L 10.6 L (13.5-16.0) g/dL Hct 33.4 L 29.8 L (41.0-53.0) % Plt Count 209 D 127 L D (140-440) Thou/mm3 BMP 03/10/24 03/11/24 20:59 06:17 Sodium 126 L 128 L Potassium 4.2 3.7 D Chloride 96 L 99 Carbon Dioxide 24.3 24.7 BUN 25 H 18 Creatinine 0.7 0.5 L Glucose 245 H 127 H D Calcium 8.7 8.3 Cardiac Enzymes 03/10/24 Range/Units 20:59 Troponin I < 0.020 (0.0-0.045) ng/mL Liver Function 03/10/24 03/11/24 Range/Units 20:59 06:17 Total Bilirubin 3.2 H 3.0 H (0.3-1.2) mg/dL AST 120 H 93 H (0-34) U/L ALT 128 H 105 H (10-49) U/L Alkaline Phosphatase 684 H 562 H D (46-116) U/L Albumin 3.9 3.5 (3.4-4.8) gm/dL Urine 03/11/24 Range/Units 01:07 Urine Color Yellow (Lt Yel-Yel) Urine Clarity Clear (Clear/Hazy) Urine pH 6.5 (5.0-7.0) Ur Specific [place] 1.024 (1.001-1.035) Urine Protein Trace (Neg - Trace) Urine Glucose (UA) 2+ A (Negative) Assessment and Plan Additional Assessment & Plan Additional Plan: # Cholangitis acute in the setting of choledocholithiasis with leukocytosis and fever Suggestions Broad-spectrum IV antibiotics Will prefer to keep the patient in the ER until a bed is available at [facility] But if the internal medicine team wants to accept the patient and then transfer the patient from the floor to [facility] I do not have an issue with that When bed becomes extremely difficult from the floor to the hospital It is somewhat easier from the emergency room to the accepting hospital Thank you once again for the opportunity to participate in the care of this patient Other medical problems include # CAD post CABG # Diabetes mellitus type 2 Postcholecystectomy#
--- NOTE | 2024-03-11 15:50 | PC.NURSE ---
ACCEPTED AT [facility] UNIT NUMBER FOR REPORT [id number] ROOM [id number] DR SEN
--- NOTE | 2024-03-11 15:51 | PD.EDADDENDU ---
Emergency Room Addendum Addendum Narrative: I took over the care from Dr. Cantor at 6 PM on 03/11/2024, see his notes for complete H&P and ED course. I reviewed all diagnostic test results. My interpretation of the EKG is?sinus rhythm with nonspecific ST?T changes. My interpretation of the chest x-ray is no acute findings. My interpretation of the KUB is biliary stent. My review of the MRCP report is extrahepatic biliary tract dilatation which appears to be secondary to multiple stones in the common hepatic common bile duct. Blood tests and urine tests?remarkable for T. bili 3.0, AST 93, ALT 105, alk phos 562. Positive preliminary blood culture X 2. At this point, diagnoses include cholangitis, biliary stent obstruction, and bacteremia. Treatment here included IV fluid and Zosyn. I discussed the case with our GI (Dr. Khan). About the presentation and exam and diagnostics and treatments here. And need of further care in the hospital. Recommended transfer to [facility] where he got his past care. I discussed the case with Dr. Ocasio ([facility]). About the presentation and exam and diagnostics and treatments here. And need of further care there. Will accept the patient. But may take several days. Recommended admission here until then. Cullen Castillo MD
[2024-03-11] MEDS: MethylPREDNISolone SOD SUCC 62.5 MG/ML 2ML VIAL 125 MG IVP (17:59)
[2024-03-11 18:31] LABS: Sodium 133 mMol/L (136-145)
== END 2024-03-11 18:24 | disposition short-term general hospital (02) ==
PROVIDERS: Emergency Medicine; Physician Assistant; Student in an Organized Health Care Education/Training Program; Emergency Provider Emergency Medicine; PCP Family Medicine
DX: K80.31 Calculus of bile duct with cholangitis, unspecified, with obstruction (principal); R17 Unspecified jaundice; R94.31 Abnormal electrocardiogram [ECG] [EKG]; Z96.89 Presence of other specified functional implants; Z75.1 Person awaiting admission to adequate facility elsewhere
CPT/HCPCS: 36415; 71045; 74018; 80053; 81001; 83605; 83690; 84145; 84295; 84484; 85025; 87040; 87077; 87086; 87186; 87400; 87811; 93005; 96360; 96365; 96366; 96367; 99285; J1885; J2543; J2919; J7030; J7040; J7042; J7050; S8037; 74181; A9270

== ENCOUNTER 2024-03-21 10:48 | Emergency (ER) | payer MEDICARE, BC, SELFPAY ==
[2024-03-21] VITALS (12 sets, daily range): BP systolic 123–152; BP diastolic 66–93; PULSE 85–105; RESP 16–22; TEMP 37.7–39.9; O2SAT 95–99; BMI 22.4
--- NOTE | 2024-03-21 | XR_ITS ---
MRI abdomen, without contrast. MRCP Date and time of exam: March 21, 2024 hours INDICATIONS: History jaundice cholecystectomy chronic pancreatitis, stent placement, biliary Technique: Multiple axial and coronal images of the abdomen have been obtained with the Siemens 1.5T MRI scanner. Images obtained included T1 weighted transverse images, T2-weighted transverse images, T2-weighted transverse images fat-suppressed, T2 weighted haste fat suppressed transverse images, T1 weighted images, in and out of phase images, T2-weighted coronal images, breath hold, T2 weighted haze coronal images as well as T2 weighted coronal thick slab images, MRCP. Findings: Mild intrahepatic biliary tract dilatation Absent gallbladder Common hepatic duct 7 mm common bile duct 6 mm Multiple 2 to 3 mm filling defects in the common hepatic common bile duct No pancreatic mass No hydronephrosis Perinephric stranding Spleen is not enlarged Prominent lumbar dextroscoliosis IMPRESSION: Multiple 2 to 3 mm filling defects in the common hepatic common bile duct suspicious for stones Recommend ERCP follow-up
--- NOTE | 2024-03-21 11:26 | XR_ITS ---
Examination: AP chest single view TECHNIQUE: AP portable sitting chest single view Exam date and time: March 21, 2024 1156 hours INDICATIONS: Sepsis protocol. FINDINGS: Normal heart size No lobar pneumonia Median sternotomy wires. No pulmonary edema Prominent osteopenia IMPRESSION: No pneumonia identified
--- NOTE | 2024-03-21 11:27 | EKG_ITS ---
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
--- NOTE | 2024-03-21 11:34 | PD.EDADULT ---
ED General RME/HPI General Chief complaint: Altered Mental Status Stated complaint: AMS Time Seen by Provider: 03/21/24 11:26 Arrival date/time: 03/21/24 10:48 CC: Altered mental status warm to touch tachycardia HPI patient presents to the ER via EMS from a primary care provider's facility. The patient is confused unable to answer date of . However is awake and responding to simple questions. Has no pain at this time. Review of the medical record show the patient had a recent biliary stent secondary to cholangitis. Review of the last admission on March 10, 2024 the patient presented with the same complaints and required MRCP to determine that he had cholangitis. Patient was summary transfer to [facility] for stent placement. Related Data Home Medications ?Medication ?Instructions ?Recorded ?Confirmed insulin glargine U-300 conc 300 25 unit subcut QDAY 05/23/20 04/05/23 unit/mL (1.5 mL) subcutaneous pen (Toujeo SoloStar U-300 Insulin) levothyroxine 50 mcg tablet 50 mcg PO QDAY 05/23/20 04/05/23 (Levoxyl) tamsulosin 0.4 mg capsule (Flomax) 0.4 mg PO HS 05/23/20 04/05/23 insulin glargine U-300 conc 300 unit subcut 09/09/20 04/05/23 unit/mL (1.5 mL) subcutaneous pen (Toujeo SoloStar U-300 Insulin) multivit,Ca,min-iron 8 mg-folic 1 tab PO DAILY 09/09/20 04/05/23 acid 200 mcg-lycopene 600 mcg tablet (Centrum Ultra Men's) aspirin 81 mg tablet,delayed 81 mg PO QDAY 01/20/22 04/05/23 release atorvastatin 80 mg tablet 80 mg PO QDAY 01/20/22 04/05/23 carvedilol 3.125 mg tablet 3.125 mg PO BID 01/20/22 04/05/23 Previous Rx's ?Medication ?Instructions ?Recorded acetaminophen 300 mg-codeine 30 mg 2 tab PO TID PRN pain #20 tabs 02/10/24 tablet Allergies Allergy/AdvReac Type Severity Reaction Status Date / Time No Known Allergies Allergy Unknown Verified 03/10/24 20:27 Review of Systems Review of Systems ROS Unobtainable: unobtainable due to mental status Past Medical History Past Medical History NEUROLOGIC: Negative Neurological Disorders, Alzheimer's Disease, Seizures or Amyotrophic Lateral Sclerosis (ALS/Ainsley Gehrig's) CARDIAC: Positive Cardiac Disorders; Negative Congestive Heart Failure, Edema, Cellulitis or Varicose Veins RESPIRATORY: Negative Chronic Obstructive Pulmonary Disease (COPD), Asthma, Bronchitis, Emphysema or Pulmonary Embolism GASTROINTESTINAL: Positive Gastrointestinal Disorders, Pancreatitis and Gall Bladder Disease; Negative Hepatitis GENITOURINARY: Positive Genitourinary Disorders and Benign Prostatic Hyperplasia; Negative Renal Disease MUSCULOSKELETAL: Positive Musculoskeletal Disorders, Arthritis and Carpal Tunnel Syndrome ENT: Positive Cataracts ENDOCRINE: Positive Endocrine Disorders, Diabetes Mellitus Type 1, Diabetes Mellitus Type 2 and Hypothyroidism HEMATOLOGIC: Negative Blood Disorders or Sickle Cell Disease OTHER HISTORY: Positive Hospitalization and Chicken Pox; Negative Autoimmune Disease, Developmental Delay, Shingles, Falls, Blood Transfusions, Blood Transfusion Reaction, Anesthesia Reactions, Organ Transplant, Chemotherapy, MRSA, Measles, Mumps or Cancer Family History FAMILY HISTORY: Positive Family Cardiac Disorders and Family Surgery; Negative Family Psychiatric Problems, Family Respiratory Disorders, Family Gastrointestinal Problems, Family Cancer or Family Anesthesia Reaction Surgical History SURGICAL: Positive Eye Surgery and Vasectomy; Negative Cardiac Surgery, Pacemaker, Endocrine Surgery, Adenoidectomy, Abdominal Surgery, Arthroscopy, Neurologic Surgery or Organ Transplant Social History SMOKING STATUS: Never smoker SUBSTANCE USE: does not use ED Exam Narrative Physical exam: [General: Somewhat altered, appears not in any acute distress Head normocephalic HEENT: Within acceptable limits Neck is supple nontender Chest equal chest rise nontender to palpation Respiratory: Clear to auscultation no wheezes crackles or rubs CV: Rate rhythm is regular, tachycardic, no murmurs rubs or clicks Abdomen is soft nontender no masses positive bowel sounds all 4 quadrants Back: No CVA tenderness no spinous process tenderness from cervical spine thoracic and lumbar spine Skin: Intact no petechiae rash induration ulceration or crepitus Extremities: Moving all extremity against resistance cap refill less than 2 seconds neurosensory intact Neuro: Awake alert oriented x1, self, Glascow coma 15 no focal deficits] Course Course Course Narrative: 1204 nurse notified blood patient's blood sugars 54. Patient given an amp of D50. Patient's blood sugars have stabilized out at 1600 in the 80s after taking food. Patient is awake alert oriented much more oriented than initially. After temperature came down At 1715 patient's case accepted by [facility]. Now waiting for bed availability. Consulted the hospitalist group for management of chronic condition during his stay in the emergency room Quality Measures none Orders Category Date Time Status Bedside Blood Glucose ACHS Care 03/21/24 18:48 Completed Security Incident Handler STAT Care 03/21/24 11:27 Completed Continuous Pulse Oximetry STAT Care 03/21/24 11:27 Completed EKG (ED ONLY) *Do not use* NOW Care 03/21/24 11:27 Completed In and Out Catheter X1PRN Care 03/21/24 11:27 Completed Insert IV NOW Care 03/21/24 11:27 Completed MRI Screening NOW Care 03/21/24 11:31 Completed NPO STAT Care 03/21/24 11:27 Completed NPO after Midnight ONCE Care 03/21/24 18:26 Completed Strict Intake and Output Routine Care 03/21/24 11:27 Ordered Consult to Adult Hospitalist Stat Cons 03/21/24 17:24 Ordered Consult to Infectious Diseases Stat Cons 03/22/24 14:57 Ordered Diet Carbohydrate Consistent Diet 03/22/24 Breakfast Active Diet Carbohydrate Consistent Low Diet 03/21/24 Dinner Completed Transfer to another facility [Transfer/Discharge] Discharge 03/21/24 Active Routine EKG (ED Only) Stat Exams 03/21/24 11:27 Draft MR MRCP Stat Exams 03/21/24 Completed XR chest 1V SEPSIS PROTOCOL Stat Exams 03/21/24 11:26 Completed B-Type Natriuretic Peptide Stat Lab 03/21/24 11:58 Completed Blood Culture (Lab) Stat Lab 03/21/24 11:58 Completed CBC AM DRAW Lab 03/22/24 06:37 Completed CBC AM DRAW Lab 03/23/24 04:45 Completed CBC Stat Lab 03/21/24 11:58 Completed CMP [Comprehensive Metabolic Panel] AM DRAW Lab 03/22/24 06:37 Completed CMP [Comprehensive Metabolic Panel] AM DRAW Lab 03/23/24 04:45 Completed Comprehensive Metabolic Panel Stat Lab 03/21/24 11:58 Completed Free T4 (Free Thyroxine) Stat Lab 03/21/24 11:58 Completed Glycohemoglobin w (eAG) AM DRAW Lab 03/22/24 06:37 Completed LDH (Lactate Dehydrogenase) Stat Lab 03/21/24 11:58 Completed Lactate (Lactic Acid) Stat Lab 03/21/24 11:58 Completed Lipase Stat Lab 03/21/24 11:58 Completed Mag [Magnesium] AM DRAW Lab 03/22/24 06:37 Completed Mag [Magnesium] AM DRAW Lab 03/23/24 04:45 Completed Magnesium Stat Lab 03/21/24 11:58 Completed Partial Thromboplastin Time Stat Lab 03/21/24 11:58 Completed Phosphorous Stat Lab 03/21/24 11:58 Completed Procalcitonin Stat Lab 03/21/24 11:58 Completed Prothrombin Time with INR Stat Lab 03/21/24 11:58 Completed TSH [Thyroid Stimulating Hormone] Stat Lab 03/21/24 11:58 Completed Troponin I Stat Lab 03/21/24 11:58 Completed Urinalysis Stat Lab 03/21/24 12:40 Completed Urine Culture Stat Lab 03/21/24 12:40 Completed Acetaminophen Tab [Tylenol ES Tab] Med 03/22/24 14:50 Discontinued 1,000 mg PO Q8H PRN Acetaminophen Tab [Tylenol ES Tab] Med 03/22/24 14:28 Discontinued 1,000 mg PO X1 ONE Acetaminophen Tab [Tylenol Tab] Med 03/21/24 18:30 Discontinued 1,000 mg PO Q8H Acetaminophen Tab [Tylenol Tab] Med 03/21/24 18:26 Discontinued 1,000 mg PO Q8H PRN Acetaminophen Tab [Tylenol Tab] Med 03/21/24 11:26 Discontinued 650 mg PO X1 ONE Dextrose 50% Syr [D50w Syringe Abboject] Med 03/21/24 18:48 Discontinued 25 ml IV Q15MIN PRN Dextrose 50% Syr [D50w Syringe Abboject] Med 03/21/24 18:48 Discontinued 50 ml IV Q15MIN PRN Dextrose 50% Syr [D50w Syringe Abboject] Med 03/21/24 12:04 Discontinued 50 ml IV X1 ONE Glucagon Inj Med 03/21/24 18:48 Discontinued 1 mg IM Q15MIN PRN INSULIN LISPRO (AdmeLOG) [HumaLOG] Med 03/22/24 07:30 Discontinued See Protocol SC AC Ibuprofen Tab [Motrin Tab] Med 03/21/24 18:25 Discontinued 600 mg PO Q8HR PRN Insulin Glargine Inj [Lantus Inj] Med 03/22/24 09:00 Discontinued 20 unit SC QDAY Levothyroxine Sodium [Synthroid] Med 03/22/24 06:00 Discontinued 50 mcg PO ACBR Meropenem Inj [Merrem Inj] 1,000 mg Med 03/22/24 22:00 Discontinued Sodium Chloride 0.9% (P) [Ns 0.9% (P)] 50 ml IV Q8HR Meropenem Inj [Merrem Inj] 1,000 mg Med 03/23/24 14:00 Discontinued Sodium Chloride 0.9% (P) [Ns 0.9% (P)] 50 ml IV Q8HR Meropenem Inj [Merrem Inj] 1,000 mg Med 03/22/24 15:00 Discontinued Sodium Chloride 0.9% (P) [Ns 0.9% (P)] 50 ml IV X1 Piper/Tazo 3.375 gm [Zosyn] Med 03/21/24 18:22 Discontinued 3.375 gm in 50 ml IV Q6HR Piper/Tazo Inj [Zosyn Inj] 3.375 gm Med 03/21/24 12:28 Discontinued Sodium Chloride 0.9% (P) [Ns 0.9% (P)] 50 ml IV X1 Ringers Lactated 1000 ml [Lactated Ringers] 1,000 ml Med 03/22/24 14:48 Discontinued IV 150 mls/hr Ringers Lactated 1000 ml [Lactated Ringers] 1,000 ml Med 03/21/24 18:23 Discontinued IV 75 mls/hr Sodium Chloride 0.9% 1000 ml [Ns] 1,000 ml Med 03/21/24 11:32 Discontinued IV 999 mls/hr Sodium Chloride 0.9% 1000 ml [Ns] 1,000 ml Med 03/21/24 11:32 Discontinued IV 999 mls/hr Tamsulosin HCl [Flomax] Med 03/21/24 21:00 Discontinued 0.4 mg PO HS Vancomycin Pharmacy to Dose Med 03/22/24 08:42 Discontinued 1 each IV DAILY PRN Vancomycin/Ns 1 gm Ivpb 200 ml Med 03/23/24 10:00 Discontinued IV BID@1000,2200 Vancomycin/Ns 1 gm Ivpb 200 ml Med 03/22/24 08:45 Discontinued IV X1 Vancomycin/Ns 1 gm Ivpb 200 ml Med 03/22/24 14:15 Discontinued IV X1 Late Tray Request Routine Oth 03/21/24 18:40 Active Oxygen Delivery NOW RT 03/21/24 11:27 Completed Vital Signs Vital signs: Vital Signs Pulse Rate 104 H 03/21/24 10:52 Respiratory Rate 17 03/21/24 10:52 Blood Pressure 152/83 H 03/21/24 10:52 Pulse Oximetry (%) 95 03/21/24 10:52 Oxygen Delivery Method Room Air 03/21/24 10:52 [facility] Patient data External records reviewed:: [facility] previous records and EMS form Clinical information provided by:: patient and EMS Social determinants that could affect healthcare access:: none Patient has the following chronic illnesses:: Cholangitis biliary stent on blood thinners hypothyroidism How is presenting disease/condition affected by chronic disease/condition?: exacerbated by Evaluation data The following diagnostics were reviewed and interpreted by me:: lab results, radiology exam(s) and EKG tracing(s) Lab and/or radiology exams considered but not ordered:: EKG performed at 1203 shows a ventricular rate of 91 MO interval 166 QRS of 74 QTc of 390 this is sinus rhythm nonspecific ST segment changes with baseline wander in V3. CBC shows a leukocytosis of 15,000 and H&H of 13 and 36 platelets of 200. Sodium 125 potassium 3.6 chloride of 95 CO2 of 22.5 BUN of 9 creatinine of 0.5 glucose of 53 note: The amp of D50 was given lactic acid of 1.0 Phosphorus 2.3 total bili T. bili of 2.1 AST 107 ALT 77 alk phos of 800 LDH of 250 lactic is negative Troponin is negative Interpretation Summary: Altered mental status Medications Medications considered but not ordered:: None Medication administrations:: Medication Administration History Discontinued Medications Acetaminophen (Acetaminophen 325 Mg Tablet) 650 mg PO X1 ONE Stop: 03/21/24 11:27 Last Admin: 03/21/24 12:07 Dose: 650 mg Documented By: KM Acetaminophen (Acetaminophen 325 Mg Tablet) 1,000 mg PO Q8H SAÚL Stop: 04/20/24 18:29 Acetaminophen (Acetaminophen 325 Mg Tablet) 1,000 mg PO Q8H PRN PRN Reason: Fever > 101.3 Stop: 04/20/24 18:29 Acetaminophen (Acetaminophen 500 Mg Tablet) 1,000 mg PO X1 ONE Stop: 03/22/24 14:29 Last Admin: 03/22/24 14:32 Dose: 1,000 mg Documented By: ER Acetaminophen (Acetaminophen 500 Mg Tablet) 1,000 mg PO Q8H PRN PRN Reason: Fever > 101.3 Stop: 04/20/24 18:29 Dextrose (Dextrose 50%-Water Inj 50 Ml Syringe) 50 ml IV X1 ONE Stop: 03/21/24 12:05 Last Admin: 03/21/24 12:15 Dose: 50 ml Documented By: MAYRA Dextrose (Dextrose 50%-Water Inj 50 Ml Syringe) 25 ml IV Q15MIN PRN PRN Reason: BG 50-70 responsive npo pt Stop: 04/20/24 18:47 Dextrose (Dextrose 50%-Water Inj 50 Ml Syringe) 50 ml IV Q15MIN PRN PRN Reason: BG <50 OR BG <70 & pt unresponsive Stop: 04/20/24 18:47 Glucagon (Glucagon Inj 1 Mg Vial) 1 mg IM Q15MIN PRN PRN Reason: BG <70, and no IV access Sodium Chloride (Ns) 1,000 mls @ 999 mls/hr IV .Q1H1M ONE Stop: 03/21/24 12:32 Last Infusion: 03/21/24 13:12 Dose: Infused Documented By: Admin: 03/21/24 12:08 Dose: 999 mls/hr Documented By: MAYRA Sodium Chloride (Ns) 1,000 mls @ 999 mls/hr IV .Q1H1M ONE Stop: 03/21/24 12:32 Last Infusion: 03/21/24 17:55 Dose: Infused Documented By: Admin: 03/21/24 12:08 Dose: 999 mls/hr Documented By: MAYRA Piperacillin Sod/Tazobactam (Sod 3.375 gm/ Sodium Chloride) 50 mls @ 100 mls/hr IV X1 ONE Stop: 03/21/24 12:57 Last Infusion: 03/21/24 13:30 Dose: Infused Documented By: Admin: 03/21/24 13:00 Dose: 100 mls/hr Documented By: MAYRA Piperacillin/Tazobactam/Dextrose (Zosyn) 3.375 gm in 50 mls @ 100 mls/hr IV Q6HR SAÚL Stop: 03/28/24 18:21 Last Infusion: 03/22/24 12:46 Dose: Infused Documented By: Admin: 03/22/24 12:16 Dose: 100 mls/hr Documented By: Infusion: 03/22/24 07:00 Dose: Infused Documented By: Admin: 03/22/24 06:06 Dose: 100 mls/hr Documented By: Infusion: 03/22/24 01:00 Dose: Infused Documented By: Admin: 03/22/24 00:55 Dose: 100 mls/hr Documented By: Infusion: 03/21/24 19:45 Dose: Infused Documented By: Admin: 03/21/24 19:11 Dose: 100 mls/hr Documented By: RD Lactated Ringer's (Lactated Ringers) 1,000 mls @ 75 mls/hr IV .[id number] SAÚL Stop: 04/20/24 18:22 Last Infusion: 03/22/24 22:55 Dose: Infused Documented By: Infusion: 03/22/24 16:57 Dose: 75 mls/hr Documented By: Admin: 03/22/24 08:26 Dose: 75 mls/hr Documented By: Infusion: 03/22/24 08:25 Dose: Infused Documented By: Admin: 03/21/24 19:10 Dose: 75 mls/hr Documented By: RD Vancomycin/Sodium Chloride (Vancomycin/Ns 1 Gm Ivpb) 200 mls @ 120 mls/hr IV X1 ONE Stop: 03/22/24 10:24 Last Infusion: 03/22/24 10:47 Dose: Infused Documented By: Admin: 03/22/24 09:01 Dose: 120 mls/hr Documented By: ER Vancomycin/Sodium Chloride (Vancomycin/Ns 1 Gm Ivpb) 200 mls @ 120 mls/hr IV X1 ONE Stop: 03/22/24 15:54 Last Infusion: 03/22/24 20:51 Dose: Infused Documented By: Admin: 03/22/24 17:32 Dose: 120 mls/hr Documented By: ER Lactated Ringer's (Lactated Ringers) 1,000 mls @ 150 mls/hr IV .Q6H40M SAÚL Stop: 04/21/24 14:47 Last Admin: 03/23/24 21:39 Dose: Not Given Documented By: AC Non-Admin Reason: Discontinued Infusion: 03/23/24 12:05 Dose: Infused Documented By: Admin: 03/23/24 05:39 Dose: 150 mls/hr Documented By: MARIA ELENA Infusion: 03/23/24 05:39 Dose: Infused Documented By: Admin: 03/22/24 23:05 Dose: 150 mls/hr Documented By: Infusion: 03/22/24 23:05 Dose: Infused Documented By: Admin: 03/22/24 16:55 Dose: 150 mls/hr Documented By: ER Meropenem 1,000 mg/ Sodium (Chloride) 50 mls @ 100 mls/hr IV Q8HR SAÚL; Protocol Stop: 03/30/24 13:59 Last Infusion: 03/23/24 22:35 Dose: Infused Documented By: Admin: 03/23/24 22:03 Dose: 100 mls/hr Documented By: Infusion: 03/23/24 16:44 Dose: Infused Documented By: Admin: 03/23/24 16:34 Dose: 100 mls/hr Documented By: MP Meropenem 1,000 mg/ Sodium (Chloride) 50 mls @ 100 mls/hr IV X1 ONE Stop: 03/22/24 15:29 Last Infusion: 03/22/24 17:25 Dose: Infused Documented By: Admin: 03/22/24 16:53 Dose: 100 mls/hr Documented By: ER Meropenem 1,000 mg/ Sodium (Chloride) 50 mls @ 100 mls/hr IV Q8HR SAÚL; Protocol Stop: 03/23/24 06:29 Last Infusion: 03/23/24 08:40 Dose: Infused Documented By: Admin: 03/23/24 05:31 Dose: 100 mls/hr Documented By: Infusion: 03/22/24 22:54 Dose: Infused Documented By: Admin: 03/22/24 21:00 Dose: 100 mls/hr Documented By: ROMIEOR Vancomycin/Sodium Chloride (Vancomycin/Ns 1 Gm Ivpb) 200 mls @ 120 mls/hr IV BID@1000,2200 SAÚL; Protocol Stop: 03/30/24 09:59 Last Infusion: 03/24/24 00:18 Dose: Infused Documented By: Admin: 03/23/24 22:41 Dose: 120 mls/hr Documented By: Infusion: 03/23/24 12:00 Dose: Infused Documented By: Admin: 03/23/24 10:11 Dose: 120 mls/hr Documented By: NICOLASA Ibuprofen (Ibuprofen Tab 600 Mg Tablet) 600 mg PO Q8HR PRN PRN Reason: PAIN OR FEVER > 101 Stop: 04/20/24 18:24 Last Admin: 03/21/24 18:59 Dose: 600 mg Documented By: LAURI Insulin Glargine (Insulin Glargine (Lantus) 5 Unit/0.05 Ml (Per 5 Units)) 20 unit SC QDAY [facility] Stop: 04/21/24 08:59 Last Admin: 03/23/24 10:11 Dose: 20 unit Documented By: NICOLASA Co-signed By: ED Admin: 03/22/24 09:01 Dose: 20 unit Documented By: ER Co-signed By: MOHAN Insulin Human Lispro (Insulin Lispro (Admelog) 1 Unit/0.01 Ml Unit) 0 unit SC AC [facility]; Protocol Stop: 04/21/24 07:29 Last Admin: 03/23/24 18:32 Dose: Not Given Documented By: RD Non-Admin Reason: Per Protocol Admin: 03/23/24 16:52 Dose: 2 unit Documented By: DEANDRE Co-signed By: ELIZABETH Admin: 03/23/24 08:43 Dose: Not Given Documented By: NICOLASA Non-Admin Reason: Per Protocol Admin: 03/22/24 17:56 Dose: Not Given Documented By: ER Non-Admin Reason: Glucose, LOW Admin: 03/22/24 14:01 Dose: Not Given Documented By: ER Non-Admin Reason: Glucose, LOW Admin: 03/22/24 09:00 Dose: Not Given Documented By: ER Non-Admin Reason: Glucose, LOW Levothyroxine Sodium (Levothyroxine Sodium 25 Mcg Tablet) [facility] Stop: 04/21/24 05:59 Last Admin: 03/23/24 05:30 Dose: 50 mcg Documented By: MARIA ELENA Admin: 03/22/24 06:05 Dose: 50 mcg Documented By: JOSE MIGUEL Pharmacy Consult (Vancomycin Pharmacy To Dose 1 Each Each) 1 each IV DAILY PRN PRN Reason: CONSULT Stop: 04/21/24 08:41 Tamsulosin HCl (Tamsulosin Hcl 0.4 Mg Capsule) 0.4 mg PO [facility] Stop: 04/20/24 20:59 Last Admin: 03/23/24 22:03 Dose: 0.4 mg Documented By: Admin: 03/22/24 20:57 Dose: 0.4 mg Documented By: Admin: 03/21/24 22:19 Dose: 0.4 mg Documented By: JOSE MIGUEL None Consultations Consultation(s) initiated? (list below): No Diagnosis Differential Diagnosis ED Complaint MDM: Altered mental status, renal Hillary, electrolyte imbalances Most likely diagnosis given after review of the tests above:: Cholangitis Admission Indicated Admission indicated?: indicated Explain why admission is indicated or not indicated:: Requires further medical imaging Admission Request Was there a request for admission?: No Disposition Plan Disposition Plan: Admit Medical Decision Making Differential Diagnosis Differential Diagnosis: Altered mental status, renal Hillary, electrolyte imbalances Lab Data 03/23/24 04:45 03/23/24 04:45 Labs: Lab Results 03/21/24 03/21/24 03/22/24 Range/Units 11:58 12:40 06:37 WBC 15.0 H 10.9 H (3.8-10.6) Thou/mm3 RBC 4.04 L 3.63 L (4.50-5.90) Miln/mm3 Hgb 13.0 L 11.7 L (13.5-16.0) g/dL Hct 36.0 L 33.2 L (41.0-53.0) % MCV 89 92 (80-100) fL MCH 32.2 32.2 (25.0-35.0) pg MCHC 36.1 35.2 (31.0-37.0) g/dl RDW Std Deviation 46.0 H 49.0 H (35.1-43.9) fL Plt Count 200 D 183 (140-440) Thou/mm3 Neut % (Auto) 84 H 82 H (37-80) % Lymph % (Auto) 4 L 5 L (10-50) % [place] % (Auto) 11 11 (0-12) % Eos % (Auto) 0 1 (0-10) % Baso % (Auto) 0 1 (0-2.5) % Neut # (Auto) 12.6 H 9.0 H (1.8-7.7) Thou/mm3 Lymph # (Auto) 0.6 L 0.6 L (1.0-4.8) Thou/mm3 [place] # (Auto) 1.6 H 1.2 H (0.0-0.8) Thou/mm3 Eos # (Auto) 0.0 0.1 (0.0-0.5) Thou/mm3 Baso # (Auto) 0.1 0.1 (0.0-0.2) Thou/mm3 Immature Gran # (Auto) 0.08 H 0.06 H (0.00-0.00) Thou/mm3 Absolute Nucleated RBC 0.00 0.00 (0.00-0.00) Thou/mm3 Immature Gran % 1 H 1 H (0-0) % Nucleated RBC % 0 0 (0) /100 WBC PT 12.3 H (9.0-12.2) Seconds INR 1.1 (0.9-1.3) APTT 26.1 (22.0-36.0) Seconds Sodium 125 L 133 L (136-145) mMol/L Potassium 3.6 3.8 (3.4-5.1) mMol/L Chloride 95 L 101 (98-107) mMol/L Carbon Dioxide 22.5 26.2 (20.0-31.0) mMol/L Anion Gap 8 6 L (7-16) BUN 9 9 (9-23) mg/dL Creatinine 0.5 L 0.5 L (0.6-1.3) mg/dL Estim Creat Clear Calc 108.9 108.9 (>60) mL/min eGFR > 60 > 60 (60 - ) See Note BUN/Creatinine Ratio 18 18 (12-20) Ratio Glucose 53 L 128 H D (74-106) mg/dL Estimated Ave Glu mg/dL 131 (80-131) mg/dL Hemoglobin A1c 6.2 H (4.8-6.0) % Hgb Calculated Osmolality 247 L 267 L (275-295) Lactic Acid 1.0 (0.4-2.0) mMol/L Calcium 9.2 8.5 (8.3-10.6) mg/dL Corrected Calcium 9.3 9.1 (8.5-10.1) mg/dL Phosphorus 2.3 L (2.4-5.1) mg/dL Magnesium 1.6 1.7 (1.6-2.6) mg/dL Total Bilirubin 2.1 H 1.7 H (0.3-1.2) mg/dL AST 107 H 72 H (0-34) U/L ALT 77 H 60 H (10-49) U/L Alkaline Phosphatase 800 H 558 H D (46-116) U/L Lactate Dehydrogenase 250 H (120-246) U/L Troponin I < 0.020 (0.0-0.045) ng/mL B-Natriuretic Peptide 94 (0-100) pg/mL Total Protein 6.7 5.9 (5.7-8.2) gm/dL Albumin 3.9 3.3 L D (3.4-4.8) gm/dL Globulin 2.8 2.6 (2.3-3.5) gm/dL Albumin/Globulin Ratio 1.4 1.3 (1.2-2.2) Lipase 19 (12-53) U/L Procalcitonin 0.31 (0.0-0.49) ng/ml TSH 0.81 (0.55-4.78) uIU/mL Free T4 1.17 (0.89-1.76) ng/dL Ur Collection Type Clean Catch Urine Color Yellow (Lt Yel-Yel) Urine Clarity Turbid A (Clear/Hazy) Urine pH 8.0 H (5.0-7.0) Ur Specific [place] 1.018 (1.001-1.035) Urine Protein Trace (Neg - Trace) Urine Glucose (UA) 3+ A (Negative) Urine Ketones Negative (Negative) Urine Blood Negative (Negative) Urine Nitrite Negative (Negative) Urine Bilirubin Negative (Negative) Urine Urobilinogen (Auto) Negative (0.0-1.0) mg/dL Ur Leukocyte Esterase Negative (Negative) Urine RBC 2 (0-3) /hpf Urine WBC 0 (0-5) /hpf Ur Squamous Epith Cells 0 (0-5) /hpf Amorphous Crystals Present A (Absent) Urine Bacteria None (None) 03/23/24 Range/Units 04:45 WBC 6.5 D (3.8-10.6) Thou/mm3 RBC 3.43 L (4.50-5.90) Miln/mm3 Hgb 11.0 L (13.5-16.0) g/dL Hct 31.7 L (41.0-53.0) % MCV 92 (80-100) fL MCH 32.1 (25.0-35.0) pg MCHC 34.7 (31.0-37.0) g/dl RDW Std Deviation 48.6 H (35.1-43.9) fL Plt Count 172 (140-440) Thou/mm3 Neut % (Auto) 69 (37-80) % Lymph % (Auto) 12 (10-50) % [place] % (Auto) 14 H (0-12) % Eos % (Auto) 4 (0-10) % Baso % (Auto) 1 (0-2.5) % Neut # (Auto) 4.5 (1.8-7.7) Thou/mm3 Lymph # (Auto) 0.8 L (1.0-4.8) Thou/mm3 [place] # (Auto) 0.9 H (0.0-0.8) Thou/mm3 Eos # (Auto) 0.3 (0.0-0.5) Thou/mm3 Baso # (Auto) 0.1 (0.0-0.2) Thou/mm3 Immature Gran # (Auto) 0.05 H (0.00-0.00) Thou/mm3 Absolute Nucleated RBC 0.00 (0.00-0.00) Thou/mm3 Immature Gran % 1 H (0-0) % Nucleated RBC % 0 (0) /100 WBC PT (9.0-12.2) Seconds INR (0.9-1.3) APTT (22.0-36.0) Seconds Sodium 135 L (136-145) mMol/L Potassium 3.6 (3.4-5.1) mMol/L Chloride 101 (98-107) mMol/L Carbon Dioxide 28.5 (20.0-31.0) mMol/L Anion Gap 6 L (7-16) BUN 9 (9-23) mg/dL Creatinine 0.5 L (0.6-1.3) mg/dL Estim Creat Clear Calc 108.9 (>60) mL/min eGFR > 60 (60 - ) See Note BUN/Creatinine Ratio 18 (12-20) Ratio Glucose 142 H (74-106) mg/dL Estimated Ave Glu mg/dL (80-131) mg/dL Hemoglobin A1c (4.8-6.0) % Hgb Calculated Osmolality 270 L (275-295) Lactic Acid (0.4-2.0) mMol/L Calcium 8.1 L (8.3-10.6) mg/dL Corrected Calcium 8.7 (8.5-10.1) mg/dL Phosphorus (2.4-5.1) mg/dL Magnesium 1.8 (1.6-2.6) mg/dL Total Bilirubin 0.8 D (0.3-1.2) mg/dL AST 50 H (0-34) U/L ALT 49 (10-49) U/L Alkaline Phosphatase 461 H D (46-116) U/L Lactate Dehydrogenase (120-246) U/L Troponin I (0.0-0.045) ng/mL B-Natriuretic Peptide (0-100) pg/mL Total Protein 5.5 L (5.7-8.2) gm/dL Albumin 3.2 L (3.4-4.8) gm/dL Globulin 2.3 (2.3-3.5) gm/dL Albumin/Globulin Ratio 1.4 (1.2-2.2) Lipase (12-53) U/L Procalcitonin (0.0-0.49) ng/ml TSH (0.55-4.78) uIU/mL Free T4 (0.89-1.76) ng/dL Ur Collection Type Urine Color (Lt Yel-Yel) Urine Clarity (Clear/Hazy) Urine pH (5.0-7.0) Ur Specific [place] (1.001-1.035) Urine Protein (Neg - Trace) Urine Glucose (UA) (Negative) Urine Ketones (Negative) Urine Blood (Negative) Urine Nitrite (Negative) Urine Bilirubin (Negative) Urine Urobilinogen (Auto) (0.0-1.0) mg/dL Ur Leukocyte Esterase (Negative) Urine RBC (0-3) /hpf Urine WBC (0-5) /hpf Ur Squamous Epith Cells (0-5) /hpf Amorphous Crystals (Absent) Urine Bacteria (None) Discharge Plan Plan Patient Disposition: [facility] Pt Being Transferred to: [facility] Service Needed for Transfer: Gastroenterology Prescriptions/Referrals Prescriptions/Med Rec: No Action aspirin 81 mg tablet,delayed release (DR/EC) 81 mg PO QDAY carvedilol 3.125 mg tablet 3.125 mg PO BID Rx Instructions: must administer with a meal/food atorvastatin 80 mg tablet 80 mg PO QDAY tamsulosin [Flomax] 0.4 mg Capsule 0.4 mg PO HS levothyroxine [Levoxyl] 50 mcg Tablet 50 mcg PO QDAY Toujeo SoloStar U-300 Insulin 300 unit/mL (1.5 mL) Insulin Pen 25 unit SUBCUT QDAY Patient Comments: STATES HE TAKES IT AT 1630 EVERY DAY Centrum Ultra Men's 8 mg iron- 200 mcg-600 mcg Tablet 1 tab PO DAILY Toujeo SoloStar U-300 Insulin 300 unit/mL (1.5 mL) insulin pen SUBCUT acetaminophen-codeine 300-30 mg tablet 2 tab PO TID MDD 6 PRN (Reason: pain) Qty: 20 0RF Referrals: Martinez Delgado MD [Primary Care Provider] - In 1 week Problem List Clinical Impression: Cholangitis Patient/Caregiver Discharge Instructions Print Language: Sami Stand Alone Forms: Ana Award Info., Patient Portal Info Letter PA/PLUMBER'S HELPER Supervising Physician PA/PLUMBER'S HELPER Supervising Physician: Behzad Razo ENP
[2024-03-21] MEDS: ACETAMINOPHEN 325 MG TABLET 650 MG PO (12:07)
[2024-03-21] MEDS: SODIUM CHLORIDE 0.9% 1000 ML 1,000 ML 999 ML IV ×2 (12:08)
--- NOTE | 2024-03-21 12:11 | PC.NURSE ---
called pharmacy to bring dextrose abbojet to er, not in our ER pyxis.
[2024-03-21 12:14] LABS: Basophils # (Auto) 0.1 Thou/mm3 (0.0-0.2); Basophils % (Auto) 0 % (0-2.5); Eosinophils % (Auto) 0 % (0-10); Immature Granulocytes % (Auto) 1 % (0-0); Immature Granulocytes Auto 0.08 Thou/mm3 (0.00-0.00); Lymphocytes # (Auto) 0.6 Thou/mm3 (1.0-4.8); Lymphocytes % (Auto) 4 % (10-50); Mean Corpuscular HGB Conc 36.1 g/dl (31.0-37.0); Mean Corpuscular Hemoglobin 32.2 pg (25.0-35.0); Mean Corpuscular Volume 89 fL (80-100); Monocytes # (Auto) 1.6 Thou/mm3 (0.0-0.8); Monocytes % (Auto) 11 % (0-12); Neutrophils # (Auto) 12.6 Thou/mm3 (1.8-7.7); Neutrophils % (Auto) 84 % (37-80); Nucleated Red Blood Cell % 0 /100 WBC (0); Platelet Count 200 Thou/mm3 (140-440); Red Blood Count 4.04 Miln/mm3 (4.50-5.90)
[2024-03-21] MEDS: DEXTROSE 50%-WATER INJ 50 ML SYRINGE IV (12:15)
[2024-03-21 12:30] LABS: INR 1.1 (0.9-1.3); Partial Thromboplastin Time 26.1 Seconds (22.0-36.0); Prothrombin Time 12.3 Seconds (9.0-12.2)
[2024-03-21 12:31] LABS: B-Type Natriuretic Peptide 94 pg/mL (0-100)
[2024-03-21 12:43] LABS: Alanine Aminotransferase 77 U/L (10-49); Albumin, Serum 3.9 gm/dL (3.4-4.8); Albumin/Globulin Ratio 1.4 (1.2-2.2); Alkaline Phosphatase 800 U/L (46-116); Anion Gap 8 (7-16); Aspartate Amino Transferase 107 U/L (0-34); BUN/Creatinine Ratio 18 Ratio (12-20); Bilirubin,Total 2.1 mg/dL (0.3-1.2); Blood Urea Nitrogen 9 mg/dL (9-23); Calcium 9.2 mg/dL (8.3-10.6); Calcium (Corrected) 9.3 mg/dL (8.5-10.1); Carbon Dioxide 22.5 mMol/L (20.0-31.0); Chloride 95 mMol/L (98-107); Creatinine (Component) 0.5 mg/dL (0.6-1.3); Estimated Creatinine Clearance 108.9 mL/min (>60); Free T4 (Free Thyroxine) 1.17 ng/dL (0.89-1.76); Globulin 2.8 gm/dL (2.3-3.5); Glucose 53 mg/dL (74-106); LDH (Lactate Dehydrogenase) 250 U/L (120-246); Lipase 19 U/L (12-53); Magnesium 1.6 mg/dL (1.6-2.6); Osmolality,Calculated 247 (275-295); Phosphorous 2.3 mg/dL (2.4-5.1); Potassium 3.6 mMol/L (3.4-5.1); Procalcitonin 0.31 ng/ml (0.0-0.49); Sodium 125 mMol/L (136-145); Thyroid Stimulating Hormone 0.81 uIU/mL (0.55-4.78); Total Protein 6.7 gm/dL (5.7-8.2); Troponin I < 0.020 ng/mL (0.0-0.045); eGFR > 60 See Note
[2024-03-21 12:53] LABS: Collection Type, Urine Clean Catch; Squamous Epithelial Cell,Urine 0 /hpf (0-5); WBC,Urine 0 /hpf (0-5)
[2024-03-21] MEDS: PIPER/TAZO INJ 3.375 GM in SODIUM CHLORIDE 0.9% (P) 50 ML IV (13:00)
[2024-03-21 13:17] LABS: Amorphous Crystals,Urine Present (Absent); Bilirubin,Urine Negative (Negative); Blood,Urine Negative (Negative); Clarity,Urine Turbid (Clear/Hazy); Color,Urine Yellow (Lt Yel-Yel); Glucose, Urine 3+ (Negative); Ketones,Urine Negative (Negative); Leukocyte Esterase,Urine Negative (Negative); Nitrite,Urine Negative (Negative); Protein,Urine Trace (Neg - Trace); RBC,Urine 2 /hpf (0-3); Specific Gravity,Urine 1.018 (1.001-1.035); Urobilinogen,Urine Negative mg/dL (0.0-1.0)
--- NOTE | 2024-03-21 15:16 | PC.CM ---
Addendum entered by Dory Pascual RN 03/21/24 20:53: 2052- Spoke to Fausto at [facility] for bed status he states they are at capacity and do not have a bed tonight and maybe they will tomorrow Addendum entered by Simone Olivera RN 03/21/24 17:26: 1724 received call from Chuy at [facility]. He stated pt is accepted at [facility]. Accepted by medicine Dr. Jeanna Queen. He stated give [facility] about an hour. If I don't receive any call. I can call Ruthie for bed status at [phone]. Addendum entered by Simone Olivera RN 03/21/24 16:36: 1633 received call from Chuy at [facility]. Gave clinicals. He stated he is going to present the case now. Addendum entered by Simone Olivera RN 03/21/24 15:47: 1547 Clinicals faxed to [facility]. Addendum entered by Simone Olivera RN 03/21/24 15:42: 1527 called [facility], spoke to Chuy and initiated the transfer request. Chuy stated he is transferring me to referral line and to leave pt information with automated system for transfer request and fax the clinicals. I left the transfer request with referral line automated system. Original Note: 8118 received call from Behzad Razo that pt needs to be transferred to [facility] for continuation of care. Pt last admission was on March 10, 2024 at [facility], patient had biliary stent placement secondary to cholangitis. Pt. current MRCP shows multiple stones in the common hepatic common bile duct.
--- NOTE | 2024-03-21 18:03 | ESCONSULT_ITS ---
HPI Data of Consult Patient: new to practice Requesting Physician: Martin Razo Attending Provider: Alexandra Wheatley Primary Care Provider: Martinez Delgado MD Consult Narrative Reason for consult: Chronic Medical Conditions History of present illness: Mr. 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 Patient was recently hospitalized at [facility] for a sending cholangitis requiring the placement of biliary stent and was discharged on the to complete antibiotic therapy with ciprofloxacin and Flagyl. Patient has a longstanding history of chronic pancreatitis and choledocholithiasis requiring previous biliary stenting with metal stent which was later replaced with plastic stent. Patient states that last night he following dinner he began to develop febrile like illness with fever and chills and this morning they decided to see their primary care physician Dr. Delgado who was planning to order laboratory test and abdominal imaging but at the physician's office patient had significant generalized weakness and was unable to get up without assistance so emergency medical services were called. Patient states that he has completed his antibiotic therapy with Flagyl and Cipro and both of the medications led to significant abdominal discomfort and diarrhea. He states that his diarrhea has resolved ever since he completed treatment with those medications. Patient denies any recent sick contacts or any other travel but states that prior to his transfer to [facility] for ascending cholangitis he was having cough, sinusitis, and a mild rhinorrhea. Patient states that since his hospitalization he has been following his regular diet of half a sandwich every day and dinner of meat/vegetables without eating any food from outside or fried fatty foods. Patient states that his diabetes is very well-controlled with using Toujeo 40 units around 4 PM daily and no short acting insulins. Patient states that he does wake up at night to have a midnight snack due to his diabetes leading to episodes of hypoglycemia. Currently patient does not endorse abdominal pain stating that his pain would be rated as a 2 out of 10 and is a generalized pain not specific to the right upper quadrant. Patient denies any chest pain, nausea, headache, changes in vision, changes in hearing, syncope, changes in urination, or any other associated symptoms. ED vitals: BP 152/83, pulse 104, RR 17, temp febrile at 103.8, O2 saturation 95 ED labs: WBC count of 15.0, hemoglobin 13.0 with a left shift of neutrophilia of 84% and absolute neutrophil count of 12.6, sodium reveals hyponatremia at 125, chloride 95, glucose 53, phosphorus 2.3, 2 bili of 2.1, AST 107, ALT 77, alk phos 800, LDH 250, troponin negative. U/a: Turbid, pH 8.0, glucose 3+ with amorphous crystals ED imaging: MRCP reveals multiple 2 to 3 mm filling defects in the common hepatic common bile duct suspicious for biliary stones with recommendation for ERCP follow-up Chest x-ray no pneumonia identified EKG: Sinus rhythm with a pulse rate of 91 ED management: Tylenol 650 mg p.o. x 1 2 L NS bolus D50 x 1 Zosyn 3.375 g x 1 with blood cultures and urine cultures ordered cc:: cc: Exam Vital Signs Temp Pulse Resp BP Pulse Ox O2 Del Method 100.0 F 103 H 17 149/72 H 96 Room Air 03/21/24 16:32 03/21/24 16:32 03/21/24 16:32 03/21/24 16:32 03/21/24 16:32 03/21/24 16:32 Narrative Exam GENERAL: Alert and oriented x 3. Very mild distress. Well-nourished. EYES: EOMI. Anicteric. HEENT: Moist mucous membranes. No scleral icterus. No cervical lymphadenopathy. Rosacea over the nose LUNGS: Clear to auscultation bilaterally. No accessory muscle use. CARDIOVASCULAR: Regular rate and rhythm. No murmur. No JVD. ABDOMEN: Soft, non-tender and non-distended. No palpable masses. EXTREMITIES: All 4 extremeties intact. No edema. Nontender. SKIN: No rashes or lesions. Warm. NEUROLOGIC: No focal neurological deficits. CN II-XII grossly intact, but not individually tested. PSYCHIATRIC: Cooperative. Appropriate mood and affect. Results Labs 03/22/24 06:37 03/22/24 06:37 Labs: Short CBC 03/21/24 Range/Units 11:58 WBC 15.0 H (3.8-10.6) Thou/mm3 Hgb 13.0 L (13.5-16.0) g/dL Hct 36.0 L (41.0-53.0) % Plt Count 200 D (140-440) Thou/mm3 BMP 03/21/24 11:58 Sodium 125 L Potassium 3.6 Chloride 95 L Carbon Dioxide 22.5 BUN 9 Creatinine 0.5 L Glucose 53 L Calcium 9.2 Cardiac Enzymes 03/21/24 Range/Units 11:58 Troponin I < 0.020 (0.0-0.045) ng/mL Liver Function 03/21/24 Range/Units 11:58 Total Bilirubin 2.1 H (0.3-1.2) mg/dL AST 107 H (0-34) U/L ALT 77 H (10-49) U/L Alkaline Phosphatase 800 H (46-116) U/L Albumin 3.9 (3.4-4.8) gm/dL Urine 03/21/24 Range/Units 12:40 Urine Color Yellow (Lt Yel-Yel) Urine Clarity Turbid A (Clear/Hazy) Urine pH 8.0 H (5.0-7.0) Ur Specific [place] 1.018 (1.001-1.035) Urine Protein Trace (Neg - Trace) Urine Glucose (UA) 3+ A (Negative) Quality Measures Quality Measures sepsis Current suspected stage: severe sepsis Possible source: GI tract/intra- abdominal Blood cultures ordered: yes Antibiotic ordered: Yes Advance care planning discussed with:: patient Medications Home Medications and Allergies Home Medications ?Medication ?Instructions ?Recorded ?Confirmed ?Type insulin glargine U-300 conc 300 25 unit subcut QDAY 05/23/20 04/05/23 History unit/mL (1.5 mL) subcutaneous pen (Toujeo SoloStar U-300 Insulin) levothyroxine 50 mcg tablet 50 mcg PO QDAY 05/23/20 04/05/23 History (Levoxyl) tamsulosin 0.4 mg capsule (Flomax) 0.4 mg PO HS 05/23/20 04/05/23 History insulin glargine U-300 conc 300 unit subcut 09/09/20 04/05/23 History unit/mL (1.5 mL) subcutaneous pen (Toujeo SoloStar U-300 Insulin) multivit,Ca,min-iron 8 mg-folic 1 tab PO DAILY 09/09/20 04/05/23 History acid 200 mcg-lycopene 600 mcg tablet (Centrum Ultra Men's) aspirin 81 mg tablet,delayed 81 mg PO QDAY 01/20/22 04/05/23 History release atorvastatin 80 mg tablet 80 mg PO QDAY 01/20/22 04/05/23 History carvedilol 3.125 mg tablet 3.125 mg PO BID 01/20/22 04/05/23 History Allergies Allergy/AdvReac Type Severity Reaction Status Date / Time No Known Allergies Allergy Unknown Verified 03/10/24 20:27 Visit Medications Discontinued Medications Acetaminophen (Acetaminophen 325 Mg Tablet) 650 mg PO X1 ONE Stop: 03/21/24 11:27 Last Admin: 03/21/24 12:07 Dose: 650 mg Dextrose (Dextrose 50%-Water Inj 50 Ml Syringe) 50 ml IV X1 ONE Stop: 03/21/24 12:05 Last Admin: 03/21/24 12:15 Dose: 50 ml Sodium Chloride (Ns) 1,000 mls @ 999 mls/hr IV .Q1H1M ONE Stop: 03/21/24 12:32 Last Infusion: 03/21/24 13:12 Dose: Infused Sodium Chloride (Ns) 1,000 mls @ 999 mls/hr IV .Q1H1M ONE Stop: 03/21/24 12:32 Last Infusion: 03/21/24 17:55 Dose: Infused Piperacillin Sod/Tazobactam (Sod 3.375 gm/ Sodium Chloride) 50 mls @ 100 mls/hr IV X1 ONE Stop: 03/21/24 12:57 Last Infusion: 03/21/24 13:30 Dose: Infused Assessment & Plan Plan Mr. 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 Patient was recently hospitalized at [facility] for a sending cholangitis requiring the placement of biliary stent and was discharged on the to complete antibiotic therapy with ciprofloxacin and Flagyl. Patient has a longstanding history of chronic pancreatitis and choledocholithiasis requiring previous biliary stenting with metal stent which was later replaced with plastic stent. Patient states that last night he following dinner he began to develop febrile like illness with fever and chills and this morning they decided to see their primary care physician Dr. Delgado who was planning to order laboratory test and abdominal imaging but at the physician's office patient had significant generalized weakness and was unable to get up without assistance so emergency medical services were called. Patient states that he has completed his antibiotic therapy with Flagyl and Cipro and both of the medications led to significant abdominal discomfort and diarrhea. He states that his diarrhea has resolved ever since he completed treatment with those medications. Patient denies any recent sick contacts or any other travel but states that prior to his transfer to [facility] for ascending cholangitis he was having cough, sinusitis, and a mild rhinorrhea. Patient states that since his hospitalization he has been following his regular diet of half a sandwich every day and dinner of meat/vegetables without eating any food from outside or fried fatty foods. Patient states that his diabetes is very well-controlled with using Toujeo 40 units around 4 PM daily and no short acting insulins. Patient states that he does wake up at night to have a midnight snack due to his diabetes leading to episodes of hypoglycemia. Currently patient does not endorse abdominal pain stating that his pain would be rated as a 2 out of 10 and is a generalized pain not specific to the right upper quadrant. Patient denies any chest pain, nausea, headache, changes in vision, changes in hearing, syncope, changes in urination, or any other associated symptoms. #Sepsis secondary to ascending cholangitis Patient has a history of ascending cholangitis with repeat MRCP revealing multiple 2 to 3 mm biliary stones Patient had symptoms of fever, altered mentation earlier in the day, mild hyperbilirubinemia at 2.1, does not appear to be jaundiced and does not appear to have significant right upper quadrant pain Patient has received adequate IV fluid bolus resuscitation with 2 L of NS Recommend to continue with Tylenol for antipyretic with concurrent ibuprofen if necessitated at offsetting intervals Recommend Zosyn 3.375 every 8 hourly and if patient continues to have fever the antibiotic therapy is escalated to meropenem Recommend immediate gastro enterologist surgical intervention with ERCP, patient has been accepted to [facility] pending bed Recommend daily CBC to monitor leukocytosis Recommend n.p.o. after midnight for potential surgical intervention in the a.m. Recommend viral panel for influenza and RSV to ensure that patient is not suffering from a viral prodrome maintain vigilance and monitoring patient's mentation #Hyponatremia #Hypochloremia Patient likely has electrolyte derangement secondary to dehydration and likely due to GI losses secondary to antibiotic use Follow-up with daily CMP Currently asymptomatic #CABG Hold patient's Coreg 3.125 mg p.o. twice daily with meals due to hypotension If patient develops hypertension then medication can be resumed Aspirin 81 mg p.o. daily to be held due to patient's likely surgical intervention Hold patient's atorvastatin 80 mg p.o. at bedtime #Hypothyroidism Continue with patient's levothyroxine 50 mcg p.o. ACBR #BPH Continue patient's tamsulosin 0.4 mg p.o. at bedtime #Type 1 diabetes Hold patient's Toujeo 40 units due to recent hypoglycemia and likely n.p.o. status Plan of care discussed with supervising attending Dr. Corry Perez M.D. PGY-3 Attending Provider Attestation/Addendum Alexandra Courtney DO, attest that I was physically present for the [place] portions of the service and evaluated the patient with the resident and I reviewed and discussed the case with the resident and agree with the resident's findings and plans of care as documented above Patient is a 78-year-old male with past medical history of chronic pancreatitis, CABG, BPH, hypothyroid, type 1 diabetes mellitus, cholangitis status post biliary stent placement who was brought to ED for altered mental status and fever. Patient was recently seen here in the ED on the and transfer to [facility] for acute cholangitis. Patient states that a new biliary stent was placed in bile duct stones were removed. He was discharged on the and sent home with 1 week of Cipro and Flagyl. Patient states that the Cipro has been causing him to have diarrhea and did not tolerate the Flagyl well. However he completed the course about a day or 2 ago. He noted that he has began to have fevers overnight which continued to this morning. Upon evaluation in the ED, patient was found to have blood glucose in the 50s. Patient was subsequently given D50 and IV antibiotics. MRCP was done showing multiple 2 to 3 mm filling defects at this common hepatic CBD concerning for biliary stones. ERCP is recommended. Patient has been accepted to [facility] as an pending a bed at this time. Internal medicine was consulted to follow patient while waiting for bed. Will order IV fluids and continue with IV Zosyn at this time. Mental status is improved at this time. Suspect that acute encephalopathy upon presentation was secondary to hypoglycemia versus sepsis secondary to acute cholangitis. T. bili is 2.1, AST 107, ALT is 77 with an alkaline phosphatase of 800. Will order a.m. labs to continue to follow. Patient otherwise has no acute complaints of nausea, vomiting, abdominal pain, chest pain, shortness of breath otherwise.
[2024-03-21] MEDS: IBUPROFEN TAB 600 MG TABLET PO (18:59)
[2024-03-21] MEDS: RINGERS LACTATED 1000 ML 1,000 ML 75 ML IV (19:10)
[2024-03-21] MEDS: PIPER/TAZO 3.375 GM 3.375 GM/50 ML BAG IV (19:11)
[2024-03-21] MEDS: TAMSULOSIN HCL 0.4 MG CAPSULE PO (22:19)
--- NOTE | 2024-03-21 23:28 | EDNOTE_ITS ---
Emergency Room Addendum Addendum Narrative: 2300: Care assumed from Behzad Razo NP. Past medical, surgical, social and family history reviewed. Vitals and home medications reviewed. Results and treatment plan discussed. I will assume the care of the patient at this time and will follow the patient, pending bed availability at [facility]. Please refer to the emergency department record for history and examination from initial visit. OBSERVATION NOTE: The patient was placed in ED observation care at 03/21/24 at 2300 hours. The patient was placed in ED observation care because of pending transfer. The patients past medical history, social history, and family history were reviewed. 0600: Care signed out to Dr. Mccoy (emergency physician). Past medical, surgical, social and family history reviewed. Vitals and home medications reviewed. Results and treatment plan discussed. They will assume the care of the patient at this time and will follow the patient, pending bed availability at [facility]. Patient has remained stable while under my care. At this time, observation has ended.
[2024-03-22] VITALS (11 sets, daily range): BP systolic 106–139; BP diastolic 56–79; PULSE 67–95; RESP 15–18; TEMP 36.4–38.7; O2SAT 96–99
[2024-03-22] MEDS: PIPER/TAZO 3.375 GM 3.375 GM/50 ML BAG IV ×3 (00:55→12:16)
--- NOTE | 2024-03-22 04:27 | PC.NURSE ---
PT UP TO SIDE OF BED, URINAL GIVEN. PT VOIDED APPROX 250ML OUTPUT OF URINE.
[2024-03-22] MEDS: LEVOTHYROXINE SODIUM 25 MCG TABLET 50 MCG PO (06:05)
[2024-03-22 06:56] LABS: Basophils # (Auto) 0.1 Thou/mm3 (0.0-0.2); Basophils % (Auto) 1 % (0-2.5); Eosinophils # (Auto) 0.1 Thou/mm3 (0.0-0.5); Eosinophils % (Auto) 1 % (0-10); Hematocrit 33.2 % (41.0-53.0); Hemoglobin 11.7 g/dL (13.5-16.0); Immature Granulocytes % (Auto) 1 % (0-0); Immature Granulocytes Auto 0.06 Thou/mm3 (0.00-0.00); Lymphocytes # (Auto) 0.6 Thou/mm3 (1.0-4.8); Lymphocytes % (Auto) 5 % (10-50); Mean Corpuscular HGB Conc 35.2 g/dl (31.0-37.0); Mean Corpuscular Hemoglobin 32.2 pg (25.0-35.0); Mean Corpuscular Volume 92 fL (80-100); Monocytes # (Auto) 1.2 Thou/mm3 (0.0-0.8); Monocytes % (Auto) 11 % (0-12); Neutrophils % (Auto) 82 % (37-80); Nucleated Red Blood Cell % 0 /100 WBC (0); Platelet Count 183 Thou/mm3 (140-440); Red Blood Count 3.63 Miln/mm3 (4.50-5.90); White Blood Count 10.9 Thou/mm3 (3.8-10.6)
[2024-03-22 07:06] LABS: Glucose Estimated Average 131 mg/dL (80-131); Hemoglobin A1C 6.2 % Hgb (4.8-6.0)
[2024-03-22 07:25] LABS: Alanine Aminotransferase 60 U/L (10-49); Albumin, Serum 3.3 gm/dL (3.4-4.8); Albumin/Globulin Ratio 1.3 (1.2-2.2); Alkaline Phosphatase 558 U/L (46-116); Anion Gap 6 (7-16); Aspartate Amino Transferase 72 U/L (0-34); BUN/Creatinine Ratio 18 Ratio (12-20); Bilirubin,Total 1.7 mg/dL (0.3-1.2); Blood Urea Nitrogen 9 mg/dL (9-23); Calcium 8.5 mg/dL (8.3-10.6); Calcium (Corrected) 9.1 mg/dL (8.5-10.1); Carbon Dioxide 26.2 mMol/L (20.0-31.0); Chloride 101 mMol/L (98-107); Creatinine (Component) 0.5 mg/dL (0.6-1.3); Estimated Creatinine Clearance 108.9 mL/min (>60); Globulin 2.6 gm/dL (2.3-3.5); Glucose 128 mg/dL (74-106); Magnesium 1.7 mg/dL (1.6-2.6); Osmolality,Calculated 267 (275-295); Potassium 3.8 mMol/L (3.4-5.1); Sodium 133 mMol/L (136-145); Total Protein 5.9 gm/dL (5.7-8.2); eGFR > 60 See Note
[2024-03-22] MEDS: RINGERS LACTATED 1000 ML 1,000 ML 75 ML IV (08:26)
--- NOTE | 2024-03-22 08:38 | EDNOTE_ITS ---
Emergency Room Addendum <Marge Teran - Last Filed: 03/22/24 13:28> Addendum Narrative: 0600: Care assumed from Dr. Garcia, the previous shift emergency physician. Past medical, surgical, social and family history reviewed. Vitals and home medications reviewed. I will assume the care of the patient at this time, pending bed availability for transfer to [facility]. Please refer to the emergency department record for history and examination from initial visit.? Nursing notes reviewed by me. Vital signs reviewed by me. [facility] records reviewed by me. 0845: Blood cultures from 03/21/2024 were reviewed. The aerobic bottle was positive for gram negative and positive rods. Patient is receiving Zosyn Q6H. Vancomycin was added. <Sha Mccoy MD - Last Filed: 03/22/24 13:43> Addendum Narrative: 0600: Care assumed from Dr. Garcia, the previous shift emergency physician. Past medical, surgical, social and family history reviewed. Vitals and home medications reviewed. I will assume the care of the patient at this time, pending bed availability for transfer to [facility]. Please refer to the emergency department record for history and examination from initial visit.? Nursing notes reviewed by me. Vital signs reviewed by me. [facility] records reviewed by me. 0845: Blood cultures from 03/21/2024 were reviewed. The aerobic bottle was positive for gram negative and positive rods. Patient is receiving Zosyn Q6H. Vancomycin was added. At 1310 hrs. patient has a temperature of 100.6 patient is alert awake and aware that he is being transferred [facility] is familiar with his problems and was just at [facility] for choledocholithiasis. He still having fevers the day and he is got Vanco and Zosyn ordered and [id number] until we complete his transfer. Patient appears to be tolerating his ongoing treatments here. This morning he is alert awake in no distress his pain is adequately controlled. Patient is appraised of the situation and pending transfer.
[2024-03-22] MEDS: VANCOMYCIN/NS 1 GM IVPB 200 ML IV ×2 (09:01→17:32)
[2024-03-22] MEDS: INSULIN GLARGINE (Lantus) 5 UNIT/0.05 ML (PER 5 UNITS) 20 UNIT SC (09:01)
--- NOTE | 2024-03-22 09:02 | PC.CM ---
Addendum entered by Zoila Umanzor RN 03/22/24 19:22: Please follow up with patient placement at [facility] phone number [phone]. Addendum entered by Zoila Umanzor RN 03/22/24 18:39: 1840 I called and spoke to Elizabeth at [facility] patient placement at [place]. She states they do not have any open beds at this time. I updated Susan. Addendum entered by Zoila Umanzor RN 03/22/24 16:06: 1610 Please disregard note from 1530 as it has wrong transfer center. I spoke to Ruthie at patient placement at [facility] phone number [phone]. They are still at capacity and do not have any beds at this time. I updated Susan charge nurse. Addendum entered by Zoila Umanzor RN 03/22/24 15:34: 1530 I reached out to [facility] and I spoke to Geni. She states they are still full and at capacity. No beds at time. Susan charge nurse updated. Original Note: 08 I called and spoke to Patient placement at [facility] [phone]. I spoke to Yariel and she states they do not have any beds at this time. Patient is on a bed list. I called and updated Susan in ED.
[2024-03-22] MEDS: ACETAMINOPHEN 500 MG TABLET 1000 MG PO (14:32)
--- NOTE | 2024-03-22 14:52 | ESPR_ITS ---
Documentation for date of: 03/22/24 Subjective Subjective Interval history: Patient seen in the emergency department this morning and is still pending transfer to [facility]. Overnight patient did fairly well with last recorded fever at 6:30 PM and slept well. He states that his last bowel movement was this morning. Around 1 PM patient began to develop fevers once again and was started on vancomycin by the emergency department. Blood cultures reveal gram-negative and gram-positive rods in the blood cultures and preliminary results. Due to continued fevers through IV Zosyn we will escalate antibiotic therapy to meropenem 1 g Q8 hourly for 3 to 7 days and continue to wait for patient's eventual transfer. Exam Vital Signs Temp Pulse Resp BP Pulse Ox O2 Del Method 101.6 F H 95 18 130/79 98 Room Air 03/22/24 14:32 03/22/24 14:24 03/22/24 14:24 03/22/24 14:24 03/22/24 14:24 03/22/24 14:24 Narrative Exam GENERAL: Alert and oriented x 3. Resting comfortably. Well-nourished. Very pleasant EYES: EOMI. Anicteric. HEENT: Moist mucous membranes. No scleral icterus. No cervical lymphadenopathy. Rosacea over the nose LUNGS: Clear to auscultation bilaterally. No accessory muscle use. CARDIOVASCULAR: Regular rate and rhythm. No murmur. No JVD. ABDOMEN: Soft, non-tender and non-distended. No palpable masses. EXTREMITIES: All 4 extremeties intact. No edema. Nontender. SKIN: No rashes or lesions. Warm. NEUROLOGIC: No focal neurological deficits. CN II-XII grossly intact, but not individually tested. PSYCHIATRIC: Cooperative. Appropriate mood and affect. Objective Labs 03/22/24 06:37 03/22/24 06:37 Labs: Laboratory Results - last 24 hr 03/22/24 06:37 WBC 10.9 H RBC 3.63 L Hgb 11.7 L Hct 33.2 L MCV 92 MCH 32.2 MCHC 35.2 RDW Std Deviation 49.0 H Plt Count 183 Neut % (Auto) 82 H Lymph % (Auto) 5 L [place] % (Auto) 11 Eos % (Auto) 1 Baso % (Auto) 1 Neut # (Auto) 9.0 H Lymph # (Auto) 0.6 L [place] # (Auto) 1.2 H Eos # (Auto) 0.1 Baso # (Auto) 0.1 Immature Gran # (Auto) 0.06 H Absolute Nucleated RBC 0.00 Immature Gran % 1 H Nucleated RBC % 0 Sodium 133 L Potassium 3.8 Chloride 101 Carbon Dioxide 26.2 Anion Gap 6 L BUN 9 Creatinine 0.5 L Estim Creat Clear Calc 108.9 eGFR > 60 BUN/Creatinine Ratio 18 [address] Glu mg/dL 131 Hemoglobin A1c 6.2 H Calculated Osmolality 267 L Calcium 8.5 Corrected Calcium 9.1 Magnesium 1.7 Total Bilirubin 1.7 H AST 72 H ALT 60 H Alkaline Phosphatase 558 H D Total Protein 5.9 Albumin 3.3 L D Globulin 2.6 Albumin/Globulin Ratio 1.3 Quality Measures Quality Measures sepsis Current suspected stage: sepsis Possible source: GI tract/intra-abdominal Blood cultures ordered: yes Antibiotic ordered: Yes Advance care planning discussed with:: patient Assessment & Plan Assessment Current Active Medications: Generic Name Dose Route Start Last Admin Trade Name Freq PRN Reason Stop Dose Admin Acetaminophen 1,000 mg 03/22/24 14:50 Acetaminophen 500 Mg Tablet PO 04/20/24 18:29 Q8H PRN Fever > 101.3 Dextrose 25 ml 03/21/24 18:48 Dextrose 50%-Water Inj 50 Ml Syringe IV 04/20/24 18:47 Q15MIN PRN BG 50-70 responsive npo pt Dextrose 50 ml 03/21/24 18:48 Dextrose 50%-Water Inj 50 Ml Syringe IV 04/20/24 18:47 Q15MIN PRN BG <50 OR BG <70 & pt unresponsive Glucagon 1 mg 03/21/24 18:48 Glucagon Inj 1 Mg Vial IM Q15MIN PRN BG <70, and no IV access Vancomycin/Sodium Chloride 200 mls @ 120 mls/hr 03/22/24 14:15 Vancomycin/Ns 1 Gm Ivpb IV 03/22/24 15:54 X1 ONE Lactated Ringer's 1,000 mls @ 150 mls/hr 03/22/24 14:48 Lactated Ringers IV 04/21/24 14:47 .Q6H40M SAÚL Meropenem 1,000 mg/ Sodium 50 mls @ 100 mls/hr 03/22/24 15:00 Chloride IV 03/29/24 14:59 Q8H SAÚL Ibuprofen 600 mg 03/21/24 18:25 03/21/24 18:59 Ibuprofen Tab 600 Mg Tablet PO 04/20/24 18:24 600 mg Q8HR PRN Administration PAIN OR FEVER > 101 Insulin Glargine 20 unit 03/22/24 09:00 03/22/24 09:01 Insulin Glargine (Lantus) 5 Unit/0.05 Ml (Per 5 Units) SC 04/21/24 08:59 20 unit QDAY SAÚL Administration Insulin Human Lispro 0 unit 03/22/24 07:30 03/22/24 14:01 Insulin Lispro (Admelog) 1 Unit/0.01 Ml Unit SC 04/21/24 07:29 Not Given [facility] Protocol Levothyroxine Sodium 50 mcg 03/22/24 06:00 03/22/24 06:05 Levothyroxine Sodium 25 Mcg Tablet PO 04/21/24 05:59 50 mcg ACBR SAÚL Administration Pharmacy Consult 1 each 03/22/24 08:42 Vancomycin Pharmacy To Dose 1 Each Each IV 04/21/24 08:41 DAILY PRN CONSULT Tamsulosin HCl 0.4 mg 03/21/24 21:00 03/21/24 22:19 Tamsulosin Hcl 0.4 Mg Capsule PO 04/20/24 20:59 0.4 mg HS [facility] Administration Plan Mr. 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 Patient was recently hospitalized at [facility] for a sending cholangitis requiring the placement of biliary stent and was discharged on the to complete antibiotic therapy with ciprofloxacin and Flagyl. Patient has a longstanding history of chronic pancreatitis and choledocholithiasis requiring previous biliary stenting with metal stent which was later replaced with plastic stent. Patient states that last night he following dinner he began to develop febrile like illness with fever and chills and this morning they decided to see their primary care physician Dr. Delgado who was planning to order laboratory test and abdominal imaging but at the physician's office patient had significant generalized weakness and was unable to get up without assistance so emergency medical services were called. Patient states that he has completed his antibiotic therapy with Flagyl and Cipro and both of the medications led to significant abdominal discomfort and diarrhea. He states that his diarrhea has resolved ever since he completed treatment with those medications. Patient denies any recent sick contacts or any other travel but states that prior to his transfer to [facility] for ascending cholangitis he was having cough, sinusitis, and a mild rhinorrhea. Patient states that since his hospitalization he has been following his regular diet of half a sandwich every day and dinner of meat/vegetables without eating any food from outside or fried fatty foods. Patient states that his diabetes is very well-controlled with using Toujeo 40 units around 4 PM daily and no short acting insulins. Patient states that he does wake up at night to have a midnight snack due to his diabetes leading to episodes of hypoglycemia. Currently patient does not endorse abdominal pain stating that his pain would be rated as a 2 out of 10 and is a generalized pain not specific to the right upper quadrant. Patient denies any chest pain, nausea, headache, changes in vision, changes in hearing, syncope, changes in urination, or any other associated symptoms. #Sepsis secondary to ascending cholangitis Patient has a history of ascending cholangitis with repeat MRCP revealing multiple 2 to 3 mm biliary stones Patient had symptoms of fever, altered mentation earlier in the day, mild hyperbilirubinemia at 2.1, does not appear to be jaundiced and does not appear to have significant right upper quadrant pain Patient has received adequate IV fluid bolus resuscitation with 2 L of NS Recommend to continue with Tylenol for antipyretic with concurrent ibuprofen if necessitated at offsetting intervals Recommend immediate gastro enterologist surgical intervention with ERCP, patient has been accepted to [facility] pending bed Recommend daily CBC to monitor leukocytosis Recommend viral panel for influenza and RSV to ensure that patient is not suffering from a viral prodrome maintain vigilance and monitoring patient's mentation Patient continued to have fevers through previous antibiotic therapy with Zosyn so antibiotic therapy was escalated to meropenem. Patient was also initiated on vancomycin by the emergency department. Continue to wait for blood culture results. IV fluids set at 150 cc an hour #Hyponatremia?improving #Hypochloremia?resolved Patient likely has electrolyte derangement secondary to dehydration and likely due to GI losses secondary to antibiotic use Follow-up with daily CMP Currently asymptomatic #CABG Hold patient's Coreg 3.125 mg p.o. twice daily with meals due to hypotension If patient develops hypertension then medication can be resumed Aspirin 81 mg p.o. daily to be held due to patient's likely surgical intervention Hold patient's atorvastatin 80 mg p.o. at bedtime #Hypothyroidism Continue with patient's levothyroxine 50 mcg p.o. ACBR #BPH Continue patient's tamsulosin 0.4 mg p.o. at bedtime #Type 1 diabetes Hold patient's Toujeo 40 units due to recent hypoglycemia Started the patient on insulin glargine 20 units Carb consistent low Plan of care discussed with supervising attending Dr. Corry Perez M.D. PGY-3 Attending Provider Attestation/Addendum I, Alexandra Wheatley DO, attest that I was physically present for the [place] portions of the service and evaluated the patient with the resident and I reviewed and discussed the case with the resident and agree with the resident's findings and plans of care as documented above Patient seen and evaluated this AM. He states that his RUQ pain is 1/10 today. Afebrile overnight. However, patient began to have fevers this afternoon. Will broaden abx. Vancomycin was started by ER. Zosyn switched to meropenem. Bacterial cultures positive for GNR. Will increase IV fluid hydration. Patient denies any nausea, vomiting, chest pain or shortness of breath. Pending bed at [facility] for transfer
[2024-03-22] MEDS: MEROPENEM INJ 1,000 MG in SODIUM CHLORIDE 0.9% (P) 50 ML 100 MG IV ×2 (16:53→21:00)
[2024-03-22] MEDS: RINGERS LACTATED 1000 ML 1,000 ML 150 ML IV ×2 (16:55→23:05)
--- NOTE | 2024-03-22 19:34 | EDNOTE_ITS ---
Emergency Room Addendum <Harriet Camara - Last Filed: 03/22/24 22:00> Addendum Narrative: 1800: Care assumed from Dr. Mccoy, the previous shift emergency physician. Past medical, surgical, social and family history reviewed. Vitals and home medications reviewed. I will assume the care of the patient at this time, pending transfer. Please refer to the emergency department record for history and examination from initial visit.? Physical exam by me shows patient under no acute distress at this time. <Alma Rosa Garcia MD - Last Filed: 03/23/24 05:33> Addendum Narrative: 1800: Care assumed from Dr. Mccoy, the previous shift emergency physician. Past medical, surgical, social and family history reviewed. Vitals and home medications reviewed. I will assume the care of the patient at this time, pending transfer. Please refer to the emergency department record for history and examination from initial visit.? in summary this is a 78-year-old male with a history of high cholesterol, hypertension, thyroid disease, presenting with abdominal pain and found to have common bile duct stone. While here in the emergency department for the last 48 hours the patient has been accepted to [facility] but is pending a bed. The patient is on meropenem every 6 hours. Earlier today the patient had a temperature of 100.6 but while in the emergency department since my arrival at 8 PM the patient otherwise has vital stables. At 2100 his blood pressure is 129/70 with a pulse of 72. Temp is 97.6. O2 sat is 99% on room air. Last labs 03/21/23 show that his sodium was 133 with normal CO2 of 26, and BUN/creatinine was 9/0.5. AST 72, ALT 60, alk phos 558, and total bili 1.7. CBC was 10, hemoglobin 11/33. By report the patient had positive blood cultures earlier today. Physical exam by me shows patient under no acute distress at this time. Abdomen is nondistended. Lungs are clear bilaterally. Assessment and plan stable at this time and pending transfer to [facility] pending bed. <Vicky Nowak - Last Filed: 03/23/24 05:04> Addendum Narrative: 1800: Care assumed from Dr. Mccoy, the previous shift emergency physician. Past medical, surgical, social and family history reviewed. Vitals and home medications reviewed. I will assume the care of the patient at this time, pending transfer. Please refer to the emergency department record for history and examination from initial visit.? in summary this is a 78-year-old male with a history of high cholesterol, hypertension, thyroid disease, presenting with abdominal pain and found to have common bile duct stone. While here in the emergency department for the last 48 hours the patient has been accepted to [facility] but is pending a bed. The patient is on meropenem every 6 hours. Earlier today the patient had a temperature of 100.6 but while in the emergency department since my arrival at 6 PM the patient otherwise has vital stables. At 2100 his blood pressure is 129/70 with a pulse of 72. Temp is 97.6. O2 sat is 99% on room air. Last labs 03/21/23 show that his sodium was 133 with normal CO2 of 26, and BUN/creatinine was 9/0.5. AST 72, ALT 60, alk phos 558, and total bili 1.7. CBC was 10, hemoglobin 11/33. By report the patient had positive blood cultures earlier today. Physical exam by me shows patient under no acute distress at this time. Abdomen is nondistended. Lungs are clear bilaterally. Assessment and plan stable at this time and pending transfer to [facility] pending bed. 0600: Care signed out to Dr. Cantor (emergency physician). Past medical, surgical, social and family history reviewed. Vitals and home medications reviewed. Results and treatment plan discussed. They will assume the care of the patient at this time and will follow the patient, pending bed availability at [facility].
--- NOTE | 2024-03-22 20:53 | PC.NURSE ---
PT UP AND USING BEDSIDE COMMODE, HAVING A BM. PT MOVES AROUND WELL WITH NO COMPLAINTS OF PAIN. A/O X4. ONLY CONCERN IS PT REQUEST CLUSTER CARE TO GET RESTS
[2024-03-22] MEDS: TAMSULOSIN HCL 0.4 MG CAPSULE PO (20:57)
[2024-03-23] VITALS (13 sets, daily range): BP systolic 119–148; BP diastolic 71–98; PULSE 68–80; RESP 15–21; TEMP 36.4–37.3; O2SAT 97–99
--- NOTE | 2024-03-23 04:02 | PC.NURSE ---
MELISSA FROM [facility] CALLED TO ADVISE THAT THEY STILL DID NOT HAVE A BED AVAILABLE, STATED TO CALL BACK IN AM
[2024-03-23 05:28] LABS: Basophils # (Auto) 0.1 Thou/mm3 (0.0-0.2); Basophils % (Auto) 1 % (0-2.5); Eosinophils # (Auto) 0.3 Thou/mm3 (0.0-0.5); Eosinophils % (Auto) 4 % (0-10); Hematocrit 31.7 % (41.0-53.0); Immature Granulocytes % (Auto) 1 % (0-0); Immature Granulocytes Auto 0.05 Thou/mm3 (0.00-0.00); Lymphocytes # (Auto) 0.8 Thou/mm3 (1.0-4.8); Lymphocytes % (Auto) 12 % (10-50); Mean Corpuscular HGB Conc 34.7 g/dl (31.0-37.0); Mean Corpuscular Hemoglobin 32.1 pg (25.0-35.0); Mean Corpuscular Volume 92 fL (80-100); Monocytes # (Auto) 0.9 Thou/mm3 (0.0-0.8); Monocytes % (Auto) 14 % (0-12); Neutrophils # (Auto) 4.5 Thou/mm3 (1.8-7.7); Neutrophils % (Auto) 69 % (37-80); Nucleated Red Blood Cell % 0 /100 WBC (0); Platelet Count 172 Thou/mm3 (140-440); RDW Standard Deviation 48.6 fL (35.1-43.9); Red Blood Count 3.43 Miln/mm3 (4.50-5.90); White Blood Count 6.5 Thou/mm3 (3.8-10.6)
[2024-03-23] MEDS: LEVOTHYROXINE SODIUM 25 MCG TABLET 50 MCG PO (05:30)
[2024-03-23] MEDS: MEROPENEM INJ 1,000 MG in SODIUM CHLORIDE 0.9% (P) 50 ML 100 MG IV ×3 (05:31→22:03)
[2024-03-23] MEDS: RINGERS LACTATED 1000 ML 1,000 ML 150 ML IV (05:39)
[2024-03-23 06:04] LABS: Alanine Aminotransferase 49 U/L (10-49); Albumin, Serum 3.2 gm/dL (3.4-4.8); Albumin/Globulin Ratio 1.4 (1.2-2.2); Alkaline Phosphatase 461 U/L (46-116); Anion Gap 6 (7-16); Aspartate Amino Transferase 50 U/L (0-34); BUN/Creatinine Ratio 18 Ratio (12-20); Bilirubin,Total 0.8 mg/dL (0.3-1.2); Blood Urea Nitrogen 9 mg/dL (9-23); Calcium 8.1 mg/dL (8.3-10.6); Calcium (Corrected) 8.7 mg/dL (8.5-10.1); Carbon Dioxide 28.5 mMol/L (20.0-31.0); Chloride 101 mMol/L (98-107); Creatinine (Component) 0.5 mg/dL (0.6-1.3); Estimated Creatinine Clearance 108.9 mL/min (>60); Globulin 2.3 gm/dL (2.3-3.5); Glucose 142 mg/dL (74-106); Magnesium 1.8 mg/dL (1.6-2.6); Osmolality,Calculated 270 (275-295); Potassium 3.6 mMol/L (3.4-5.1); Sodium 135 mMol/L (136-145); Total Protein 5.5 gm/dL (5.7-8.2); eGFR > 60 See Note
--- NOTE | 2024-03-23 06:23 | EDNOTE_ITS ---
Emergency Room Addendum Addendum Narrative: Narrative: 06:00: Care assumed from Dr. Paul, the previous ER shift physician. Past medical, surgical, social and family history reviewed. Vitals and home medications reviewed. Please refer to the ED record for history and examination from initial visit.? In summary, Mr. 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 Patient has a longstanding history of chronic pancreatitis and choledocholithiasis requiring previous biliary stenting with metal stent which was later replaced with plastic stent. Patient states that on 03/21 following dinner he began to develop febrile like illness with fever and chills and this morning they decided to see their primary care physician Dr. Delgado who was planning to order laboratory test and abdominal imaging but at the physician's office patient had significant generalized weakness and was unable to get up without assistance so emergency medical services were called. Patient states that he has completed his antibiotic therapy with Flagyl and Cipro and both of the medications led to significant abdominal discomfort and diarrhea. He states that his diarrhea has resolved ever since he completed treatment with those medications. 03/23/2024: In the emergency department for the last 48 hours the patient has been on IV Meropenem every 6 hours. Earlier yesterday on 03/22/2024, the patient had a temperature of 100.6 while in the emergency department which has now resolved to 98 degrees. Since my arrival at 6AM the patient otherwise has stable vitals. At 0700 his blood pressure is 119/71 with a pulse of 74 bpm. Temp is 98.2. O2 sat is 99% on room air. Last labs today 03/23/23 at 5AM CBC : normal WBC hemoglobin and hct 11/33 BMP : Na 135 with normal CO2 of 26, and BUN/creatinine was 9/0.5. LFT : AST 72 -> 50, ALT 60 -> 49, ALP 558 -> 461,T.Bili 1.7 -> 0.8 By report the patient had positive blood cultures on 03/22/2024 Physical exam: Patient under no acute distress at this time. Abdomen is non distended. Lungs are clear bilaterally. Afebrile. Plan: Assessment and plan stable at this time. Pending transfer to [facility], approved.
--- NOTE | 2024-03-23 09:59 | PC.CM ---
Addendum entered by Zoila Umanzor RN 03/23/24 19:31: I reported off to ED night charge nurse and I gave them the transfer packet. I let Bryan know that I did not get the CD. If patient is accepted tonight they need to make a CD. ED charge nurse will follow up with [facility] patient placement for bed availability. Addendum entered by Zoila Umanzor RN 03/23/24 15:35: 1530 I called and spoke to [facility] patient placement and spoke to Randy. She states they still do not have any open beds. Original Note: I reached out to [facility] patient placement and I spoke to Randy. She states they do not have a bed at this time. She asked if patient was still in our ED. I let her know he was and we have been waiting for several days. She states they hope to have a bed today. I verified she had my number. I updated ED charge Lucius. I checked to see if a packet had been started and ED stated they did not have a packet. I will put a packet together today.
[2024-03-23] MEDS: INSULIN GLARGINE (Lantus) 5 UNIT/0.05 ML (PER 5 UNITS) 20 UNIT SC (10:11)
[2024-03-23] MEDS: VANCOMYCIN/NS 1 GM IVPB 200 ML IV ×2 (10:11→22:41)
--- NOTE | 2024-03-23 15:52 | PD.RESPRO ---
Documentation for date of: 03/23/24 Subjective Subjective Interval history: Patient seen at bedside today. Last fever noted at 2:30 PM yesterday And white count improving down to 6.5. Patient is resting without complaints but is trying to remain patient waiting for transfer Exam Vital Signs Temp Pulse Resp BP Pulse Ox O2 Del Method O2 Flow Rate 99.2 F 70 19 127/72 97 Room Air 3 03/23/24 14:00 03/23/24 14:00 03/23/24 14:03/23/24 14:03/23/24 14:00 03/23/24 14:00 03/23/24 06:17 Narrative Exam GENERAL: Alert and oriented x 3. Resting comfortably. Well-nourished. Very pleasant EYES: EOMI. Anicteric. HEENT: Moist mucous membranes. No scleral icterus. No cervical lymphadenopathy. Rosacea over the nose LUNGS: Clear to auscultation bilaterally. No accessory muscle use. CARDIOVASCULAR: Regular rate and rhythm. No murmur. No JVD. ABDOMEN: Soft, non-tender and non-distended. No palpable masses. EXTREMITIES: All 4 extremeties intact. No edema. Nontender. SKIN: No rashes or lesions. Warm. NEUROLOGIC: No focal neurological deficits. CN II-XII grossly intact, but not individually tested. PSYCHIATRIC: Cooperative. Appropriate mood and affect. Objective Labs 03/23/24 04:45 03/23/24 04:45 Labs: Laboratory Results - last 24 hr 03/23/24 04:45 WBC 6.5 D RBC 3.43 L Hgb 11.0 L Hct 31.7 L MCV 92 MCH 32.1 MCHC 34.7 RDW Std Deviation 48.6 H Plt Count 172 Neut % (Auto) 69 Lymph % (Auto) 12 [place] % (Auto) 14 H Eos % (Auto) 4 Baso % (Auto) 1 Neut # (Auto) 4.5 Lymph # (Auto) 0.8 L [place] # (Auto) 0.9 H Eos # (Auto) 0.3 Baso # (Auto) 0.1 Immature Gran # (Auto) 0.05 H Absolute Nucleated RBC 0.00 Immature Gran % 1 H Nucleated RBC % 0 Sodium 135 L Potassium 3.6 Chloride 101 Carbon Dioxide 28.5 Anion Gap 6 L BUN 9 Creatinine 0.5 L Estim Creat Clear Calc 108.9 eGFR > 60 BUN/Creatinine Ratio 18 Glucose 142 H Calculated Osmolality 270 L Calcium 8.1 L Corrected Calcium 8.7 Magnesium 1.8 Total Bilirubin 0.8 D AST 50 H ALT 49 Alkaline Phosphatase 461 H D Total Protein 5.5 L Albumin 3.2 L Globulin 2.3 Albumin/Globulin Ratio 1.4 Quality Measures Quality Measures sepsis Current suspected stage: ruled out Possible source: GI tract/intra-abdominal Blood cultures ordered: yes Antibiotic ordered: Yes Advance care planning discussed with:: patient Assessment & Plan Assessment Current Active Medications: Generic Name Dose Route Start Last Admin Trade Name Freq PRN Reason Stop Dose Admin Acetaminophen 1,000 mg 03/22/24 14:50 Acetaminophen 500 Mg Tablet PO 04/20/24 18:29 Q8H PRN Fever > 101.3 Dextrose 25 ml 03/21/24 18:48 Dextrose 50%-Water Inj 50 Ml Syringe IV 04/20/24 18:47 Q15MIN PRN BG 50-70 responsive npo pt Dextrose 50 ml 03/21/24 18:48 Dextrose 50%-Water Inj 50 Ml Syringe IV 04/20/24 18:47 Q15MIN PRN BG <50 OR BG <70 & pt unresponsive Glucagon 1 mg 03/21/24 18:48 Glucagon Inj 1 Mg Vial IM Q15MIN PRN BG <70, and no IV access Meropenem 1,000 mg/ Sodium 50 mls @ 100 mls/hr 03/23/24 14:00 Chloride IV 03/30/24 13:59 Q8HR SAÚL Protocol Vancomycin/Sodium Chloride 200 mls @ 120 mls/hr 03/23/24 10:00 03/23/24 10:11 Vancomycin/Ns 1 Gm Ivpb IV 03/30/24 09:59 120 mls/hr BID@1000,2200 SAÚL Administration Protocol Ibuprofen 600 mg 03/21/24 18:25 03/21/24 18:59 Ibuprofen Tab 600 Mg Tablet PO 04/20/24 18:24 600 mg Q8HR PRN Administration PAIN OR FEVER > 101 Insulin Glargine 20 unit 03/22/24 09:00 03/23/24 10:11 Insulin Glargine (Lantus) 5 Unit/0.05 Ml (Per 5 Units) SC 04/21/24 08:59 20 unit QDAY SAÚL Administration Insulin Human Lispro 0 unit 03/22/24 07:30 03/23/24 08:43 Insulin Lispro (Admelog) 1 Unit/0.01 Ml Unit SC 04/21/24 07:29 Not Given [facility] Protocol Levothyroxine Sodium 50 mcg 03/22/24 06:00 03/23/24 05:30 Levothyroxine Sodium 25 Mcg Tablet PO 04/21/24 05:59 50 mcg ACBR SAÚL Administration Pharmacy Consult 1 each 03/22/24 08:42 Vancomycin Pharmacy To Dose 1 Each Each IV 04/21/24 08:41 DAILY PRN CONSULT Tamsulosin HCl 0.4 mg 03/21/24 21:00 03/22/24 20:57 Tamsulosin Hcl 0.4 Mg Capsule PO 04/20/24 20:59 0.4 mg HS [facility] Administration Plan Mr. 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 Patient was recently hospitalized at [facility] for a sending cholangitis requiring the placement of biliary stent and was discharged on the to complete antibiotic therapy with ciprofloxacin and Flagyl. Patient has a longstanding history of chronic pancreatitis and choledocholithiasis requiring previous biliary stenting with metal stent which was later replaced with plastic stent. Patient states that last night he following dinner he began to develop febrile like illness with fever and chills and this morning they decided to see their primary care physician Dr. Delgado who was planning to order laboratory test and abdominal imaging but at the physician's office patient had significant generalized weakness and was unable to get up without assistance so emergency medical services were called. Patient states that he has completed his antibiotic therapy with Flagyl and Cipro and both of the medications led to significant abdominal discomfort and diarrhea. He states that his diarrhea has resolved ever since he completed treatment with those medications. Patient denies any recent sick contacts or any other travel but states that prior to his transfer to [facility] for ascending cholangitis he was having cough, sinusitis, and a mild rhinorrhea. Patient states that since his hospitalization he has been following his regular diet of half a sandwich every day and dinner of meat/vegetables without eating any food from outside or fried fatty foods. Patient states that his diabetes is very well-controlled with using Toujeo 40 units around 4 PM daily and no short acting insulins. Patient states that he does wake up at night to have a midnight snack due to his diabetes leading to episodes of hypoglycemia. Currently patient does not endorse abdominal pain stating that his pain would be rated as a 2 out of 10 and is a generalized pain not specific to the right upper quadrant. Patient denies any chest pain, nausea, headache, changes in vision, changes in hearing, syncope, changes in urination, or any other associated symptoms. #Sepsis secondary to ascending cholangitis Patient has a history of ascending cholangitis with repeat MRCP revealing multiple 2 to 3 mm biliary stones Patient had symptoms of fever, altered mentation earlier in the day, mild hyperbilirubinemia at 2.1, does not appear to be jaundiced and does not appear to have significant right upper quadrant pain Patient has received adequate IV fluid bolus resuscitation with 2 L of NS and maintenance fluids are discontinued Recommend to continue with Tylenol for antipyretic with concurrent ibuprofen if necessitated at offsetting intervals Recommend immediate gastro enterologist surgical intervention with ERCP, patient has been accepted to [facility] pending bed Recommend daily CBC to monitor leukocytosis Recommend viral panel for influenza and RSV to ensure that patient is not suffering from a viral prodrome maintain vigilance and monitoring patient's mentation Patient continued to have fevers through previous antibiotic therapy with Zosyn so antibiotic therapy was escalated to meropenem. Patient was also initiated on vancomycin by the emergency department. Blood cultures grew gram-positive rods and gram-negative rods, pending speciation. Continue on meropenem #Hyponatremia?improving #Hypochloremia?resolved Patient likely has electrolyte derangement secondary to dehydration and likely due to GI losses secondary to antibiotic use Follow-up with daily CMP Currently asymptomatic #CABG Hold patient's Coreg 3.125 mg p.o. twice daily with meals due to hypotension If patient develops hypertension then medication can be resumed Aspirin 81 mg p.o. daily to be held due to patient's likely surgical intervention Hold patient's atorvastatin 80 mg p.o. at bedtime #Hypothyroidism Continue with patient's levothyroxine 50 mcg p.o. ACBR #BPH Continue patient's tamsulosin 0.4 mg p.o. at bedtime #Type 1 diabetes Hold patient's Toujeo 40 units due to recent hypoglycemia Started the patient on insulin glargine 20 units Carb consistent low Blood glucose well-controlled Plan of care discussed with supervising attending Dr. Corry Perez M.D. PGY-3 Attending Provider Attestation/Addendum Alexandra Courtney DO, attest that I was physically present for the [place] portions of the service and evaluated the patient with the resident and I reviewed and discussed the case with the resident and agree with the resident's findings and plans of care as documented above Patient resting comfortably in ED. Afebrile. Remains on vancomycin and meropenem. Blood cultures positive for GPC, pending speciation. Patient is pending bed at [facility]. Remains stable for transfer.
[2024-03-23] MEDS: INSULIN LISPRO (AdmeLOG) 1 UNIT/0.01 ML UNIT SC (16:52)
--- NOTE | 2024-03-23 21:23 | PC.NURSE ---
pt requested for quality assurance monitor chassis to be off, pt was getting agitated with all the wires he was hooked up to, pt also requested an extra pillow for under his heels. one was provided.
--- NOTE | 2024-03-23 21:43 | PC.NURSE ---
TIMOTHY PEREZ FROM [facility] [place], PT HAS BED, PT WILL BE GOING TO [address] [place] [address] 4MN [id number], ACCEPTED BY DR FERRIS, REPORT #[phone]
[2024-03-23] MEDS: TAMSULOSIN HCL 0.4 MG CAPSULE PO (22:03)
--- NOTE | 2024-03-24 00:13 | PC.NURSE ---
gave report to [facility] joshua, and EMS Scott, leaving with 20g IV LAC.
--- NOTE | 2024-03-24 00:16 | PD.EDADDENDU ---
Emergency Room Addendum Addendum Narrative: 1800: Care assumed from Dr. Saenz, attending Dr. Cantor the previous shift emergency physician. Past medical, surgical, social and family history reviewed. Vitals and home medications reviewed. Results and treatment plan discussed. I will assume the care of the patient at this time and will follow the patient, pending bed availability at [facility]. Please refer to the emergency department record for history and examination from initial visit. 1900: Patient has remained stable while under my care. He does not have a fever. Made aware the patient has a bed available for him at [facility] and is accepted by Dr. Farmer. Patient is stable and is pending EMS pick-up to be transferred.
--- NOTE | 2024-03-24 09:16 | PC.CM ---
Addendum entered by Zoila Umanzor RN 03/24/24 12:01: I faxed over all the paperwork. I looked on [employer] and [facility] is not a option to send with [employer]. I requested a CD from across the street and I will try to send by samara. Original Note: I received a call from Stephanie Hauser at [facility] phone fax # [phone] phone # [phone]. She states she is the charge nurse on the floor and they did not get the packet. She states patient stated the ambulance had the packet but they do not know where it went. I faxed information to her today. I will need to make a CD and push over images. Our CD burner in the acute setting is down so I will reach out to radiology.
== END 2024-03-24 00:31 | disposition short-term general hospital (02) ==
PROVIDERS: Student in an Organized Health Care Education/Training Program; Emergency Provider Registered Nurse General Practice; PCP Family Medicine
DX: K80.30 Calculus of bile duct with cholangitis, unspecified, without obstruction (principal); R94.31 Abnormal electrocardiogram [ECG] [EKG]; N40.0 Benign prostatic hyperplasia without lower urinary tract symptoms; E03.9 Hypothyroidism, unspecified; Z79.4 Long term (current) use of insulin; Z79.890 Hormone replacement therapy; Z95.1 Presence of aortocoronary bypass graft; Z75.1 Person awaiting admission to adequate facility elsewhere
CPT/HCPCS: 36415; 71045; 80053; 80202; 81001; 83036; 83605; 83615; 83690; 83735; 83880; 84100; 84145; 84439; 84443; 84484; 85025; 85610; 85730; 87040; 87077; 87081; 87086; 87186; 87502; 87634; 93005; 96361; 96365; 96366; 96367; 99285; J1815; J2185; J2543; J3370; J7030; J7050; J7120; S8037; 74181; A9270

== ENCOUNTER → 2024-04-03 | Outpatient (CLI) | payer MEDICARE, BC, SELFPAY ==
[2024-04-03 12:14] LABS: Prostate Specific Antigen 1.12 ng/mL (0-4.00)
== END | disposition home or self-care (01) ==
LOC: COPL 10:48
PROVIDERS: PCP Family Medicine; Referring Provider Urology; Visit Provider Urology
DX: N40.1 Benign prostatic hyperplasia with lower urinary tract symptoms (principal)
CPT/HCPCS: 36415; 84153

== ENCOUNTER → 2024-04-10 | Outpatient (BNVA) | payer MEDICARE, BC, SELFPAY | END | disposition home or self-care (01) | PROVIDERS: PCP Family Medicine; Referring Provider Family Medicine; Visit Provider Urology | DX: N40.1 Benign prostatic hyperplasia with lower urinary tract symptoms (principal); N13.8 Other obstructive and reflux uropathy; R35.0 Frequency of micturition; E11.9 Type 2 diabetes mellitus without complications; E03.9 Hypothyroidism, unspecified | CPT/HCPCS: 81003; 99212; G0463 ==

== ENCOUNTER → 2024-08-16 | Outpatient (CLI) | payer MEDICARE, BC, SELFPAY ==
--- NOTE | 2024-08-16 13:11 | EKG_ITS ---
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
== END | disposition home or self-care (01) ==
LOC: SEKG 12:57
PROVIDERS: PCP Family Medicine; Referring Provider Family Medicine; Visit Provider Family Medicine
DX: R07.9 Chest pain, unspecified (principal); R42 Dizziness and giddiness
CPT/HCPCS: 93005

== ENCOUNTER → 2024-08-17 | Outpatient (BNVA) | payer MEDICARE, BC, SELFPAY | END | disposition home or self-care (01) | PROVIDERS: PCP Family Medicine; Referring Provider Family Medicine; Visit Provider Urology | DX: N40.1 Benign prostatic hyperplasia with lower urinary tract symptoms (principal); R39.12 Poor urinary stream; E11.9 Type 2 diabetes mellitus without complications; E03.9 Hypothyroidism, unspecified | CPT/HCPCS: 51741; 51798 ==

== ENCOUNTER → 2024-10-09 | Outpatient (CLI) | payer MEDICARE, BC, SELFPAY ==
[2024-10-09 15:03] LABS: Basophils # (Auto) 0.0 Thou/mm3 (0.0-0.2); Basophils % (Auto) 0 % (0-2.5); Eosinophils # (Auto) 0.0 Thou/mm3 (0.0-0.5); Eosinophils % (Auto) 0 % (0-10); Hematocrit 35.7 % (41.0-53.0); Hemoglobin 13.0 g/dL (13.5-16.0); Immature Granulocytes Auto 0.03 Thou/mm3 (0.00-0.00); Lymphocytes # (Auto) 0.5 Thou/mm3 (1.0-4.8); Lymphocytes % (Auto) 7 % (10-50); Mean Corpuscular HGB Conc 36.4 g/dl (31.0-37.0); Mean Corpuscular Hemoglobin 34.2 pg (25.0-35.0); Mean Corpuscular Volume 94 fL (80-100); Monocytes # (Auto) 0.8 Thou/mm3 (0.0-0.8); Monocytes % (Auto) 11 % (0-12); Neutrophils # (Auto) 6.0 Thou/mm3 (1.8-7.7); Neutrophils % (Auto) 81 % (37-80); Nucleated Red Blood Cell # 0.00 Thou/mm3 (0.00-0.00); Nucleated Red Blood Cell % 0 /100 WBC (0); Platelet Count 116 Thou/mm3 (140-440); RDW Standard Deviation 47.1 fL (35.1-43.9); Red Blood Count 3.80 Miln/mm3 (4.50-5.90); White Blood Count 7.3 Thou/mm3 (3.8-10.6)
[2024-10-09 15:35] LABS: Sed Rate (ESR) 31 mm/hr (0-20)
[2024-10-09 16:41] LABS: Collection Type, Urine Clean Catch; Squamous Epithelial Cell,Urine 0 /hpf (0-5)
[2024-10-09 17:51] LABS: Bilirubin,Urine Negative (Negative); Blood,Urine Negative (Negative); Clarity,Urine Clear (Clear/Hazy); Color,Urine Yellow (Lt Yel-Yel); Culture Indicated,Urine Not Indicated; Glucose, Urine Negative (Negative); Ketones,Urine Negative (Negative); Leukocyte Esterase,Urine Negative (Negative); Nitrite,Urine Negative (Negative); PH,Urine 6.5 (5.0-7.0); Protein,Urine Negative (Neg - Trace); RBC,Urine 2 /hpf (0-3); Specific Gravity,Urine 1.019 (1.001-1.035); Urobilinogen,Urine Negative mg/dL (0.0-1.0); WBC,Urine 1 /hpf (0-5)
== END | disposition home or self-care (01) ==
LOC: COPL 14:13
PROVIDERS: PCP Family Medicine; Referring Provider Family Medicine; Visit Provider Family Medicine
DX: R10.9 Unspecified abdominal pain (principal); A00-B99 Certain infectious and parasitic diseases
CPT/HCPCS: 36415; 81001; 85025; 85652

== ENCOUNTER 2024-10-30 21:09 | Emergency (ER) | payer MEDICARE, BC, SELFPAY ==
[2024-10-30 21:13] VITALS: BP 122/66; PULSE 77; RESP 16; TEMP 37.2; O2SAT 95
[2024-10-30 21:14] VITALS: BMI 19.8
[2024-10-30 21:33] VITALS: PULSE 84; RESP 18; O2SAT 98
--- NOTE | 2024-10-30 21:57 | XR_ITS ---
Examination: AP chest single view Technique: AP portable upright chest single view Date and time: October 30, 2024 1012 hrs., Comparison March 21, 2024 Indications: Coughing fever today. Findings: Early bibasilar pneumonia. Normal heart size. Median sternotomy wires. Prominent osteopenia Impression: Early bibasilar pneumonia.
--- NOTE | 2024-10-30 21:58 | XR_ITS ---
Examination: Venous duplex lower extremity sonogram, bilateral. Date and time of exam: October 30, 2024 10:50 PM Indications: Right leg swelling beginning one week ago Technique: Multiple sonographic images of the deep venous system have been obtained. B-mode/2-D grayscale imaging of vascular structures and Doppler spectral analysis (waveforms) and color performed Both legs are examined. Findings: Deep venous systems do not demonstrate abnormal echogenicity. All visualized deep veins exhibit compressibility. All visualized deep veins exhibit augmentation. Impression: Negative for deep vein thrombosis
[2024-10-30] MEDS: SODIUM CHLORIDE 0.9% 1000 ML 1,000 ML 999 ML IV (22:22)
[2024-10-30 22:23] LABS: Lactate (Lactic Acid) 0.9 mMol/L (0.4-2.0)
[2024-10-30 22:24] LABS: Basophils # (Auto) 0.0 Thou/mm3 (0.0-0.2); Basophils % (Auto) 0 % (0-2.5); Eosinophils # (Auto) 0.0 Thou/mm3 (0.0-0.5); Eosinophils % (Auto) 0 % (0-10); Hematocrit 34.1 % (41.0-53.0); Hemoglobin 12.3 g/dL (13.5-16.0); Immature Granulocytes Auto 0.06 Thou/mm3 (0.00-0.00); Lymphocytes # (Auto) 0.5 Thou/mm3 (1.0-4.8); Lymphocytes % (Auto) 6 % (10-50); Mean Corpuscular HGB Conc 36.1 g/dl (31.0-37.0); Mean Corpuscular Hemoglobin 34.4 pg (25.0-35.0); Mean Corpuscular Volume 95 fL (80-100); Monocytes # (Auto) 0.9 Thou/mm3 (0.0-0.8); Monocytes % (Auto) 11 % (0-12); Neutrophils # (Auto) 6.6 Thou/mm3 (1.8-7.7); Neutrophils % (Auto) 81 % (37-80); Nucleated Red Blood Cell # 0.00 Thou/mm3 (0.00-0.00); Nucleated Red Blood Cell % 0 /100 WBC (0); Platelet Count 171 Thou/mm3 (140-440); RDW Standard Deviation 47.8 fL (35.1-43.9); Red Blood Count 3.58 Miln/mm3 (4.50-5.90); White Blood Count 8.1 Thou/mm3 (3.8-10.6)
[2024-10-30 22:50] LABS: Sed Rate (ESR) 61 mm/hr (0-20)
[2024-10-30 22:52] LABS: Alanine Aminotransferase 89 U/L (10-49); Albumin, Serum 3.4 gm/dL (3.4-4.8); Albumin/Globulin Ratio 1.4 (1.2-2.2); Alkaline Phosphatase 990 U/L (46-116); Amylase < 20 U/L (30-118); Anion Gap 8 (7-16); Aspartate Amino Transferase 94 U/L (0-34); BUN/Creatinine Ratio 14 Ratio (12-20); Bilirubin,Direct 0.7 mg/dL (0.0-0.3); Bilirubin,Total 1.1 mg/dL (0.3-1.2); Blood Urea Nitrogen 13 mg/dL (9-23); C-Reactive Protein 6.0 mg/dL (0.0-0.9); Calcium 8.4 mg/dL (8.3-10.6); Calcium (Corrected) 8.9 mg/dL (8.5-10.1); Carbon Dioxide 23.5 mMol/L (20.0-31.0); Chloride 97 mMol/L (98-107); Creatinine (Component) 0.9 mg/dL (0.6-1.3); Estimated Creatinine Clearance 52.5 mL/min (>60); Globulin 2.5 gm/dL (2.3-3.5); Glucose 132 mg/dL (74-106); Lipase 14 U/L (12-53); Magnesium 1.9 mg/dL (1.6-2.6); Osmolality,Calculated 259 (275-295); Potassium 3.9 mMol/L (3.4-5.1); Procalcitonin 0.28 ng/ml (0.0-0.49); Sodium 128 mMol/L (136-145); Total Protein 5.9 gm/dL (5.7-8.2); eGFR > 60 See Note
[2024-10-30 23:08] LABS: B-Type Natriuretic Peptide 206 pg/mL (0-100)
[2024-10-30] MEDS: AZITHROMYCIN 250 MG TABLET 500 MG PO (23:23)
[2024-10-30] MEDS: cefTRIAXone/D5w 1gm IV premix 1 G/50 ML BAG IV (23:23)
[2024-10-30 23:42] LABS: Collection Type, Urine Clean Catch; Squamous Epithelial Cell,Urine 0 /hpf (0-5); WBC,Urine 0 /hpf (0-5)
[2024-10-31 00:10] LABS: Bilirubin,Urine Negative (Negative); Blood,Urine Negative (Negative); Clarity,Urine Clear (Clear/Hazy); Color,Urine Lt-Yellow (Lt Yel-Yel); Culture Indicated,Urine Not Indicated; Glucose, Urine 4+ (Negative); Ketones,Urine Negative (Negative); Leukocyte Esterase,Urine Negative (Negative); Nitrite,Urine Negative (Negative); PH,Urine 7.0 (5.0-7.0); Protein,Urine Negative (Neg - Trace); RBC,Urine 1 /hpf (0-3); Specific Gravity,Urine 1.012 (1.001-1.035); Urobilinogen,Urine Negative mg/dL (0.0-1.0)
--- NOTE | 2024-10-31 00:43 | PD.EDWEAK ---
ED Weakness RME/HPI General Chief complaint: Weakness Stated complaint: WEAKNESS Time Seen by Provider: 10/30/24 21:55 Arrival date/time: 10/30/24 21:09 RME / HPI RME / HPI Narrative: See [facility] for Dr. Castillo's HPI Documentation. Related Data Home Medications ?Medication ?Instructions ?Recorded ?Confirmed insulin glargine U-300 conc 300 25 unit subcut QDAY 05/23/20 08/17/24 unit/mL (1.5 mL) subcutaneous pen (Toujeo SoloStar U-300 Insulin) levothyroxine 50 mcg tablet 50 mcg PO QDAY 05/23/20 08/17/24 (Levoxyl) tamsulosin 0.4 mg capsule (Flomax) 0.4 mg PO HS 05/23/20 08/17/24 insulin glargine U-300 conc 300 unit subcut 09/09/20 08/17/24 unit/mL (1.5 mL) subcutaneous pen (Toujeo SoloStar U-300 Insulin) multivit,Ca,min-iron 8 mg-folic 1 tab PO DAILY 09/09/20 08/17/24 acid 200 mcg-lycopene 600 mcg tablet (Centrum Ultra Men's) aspirin 81 mg tablet,delayed 81 mg PO QDAY 01/20/22 08/17/24 release atorvastatin 80 mg tablet 80 mg PO QDAY 01/20/22 08/17/24 carvedilol 3.125 mg tablet 3.125 mg PO BID 01/20/22 08/17/24 cholecalciferol (vitamin D3) 50 50 mcg PO QDAY 04/10/24 08/17/24 mcg (2,000 unit) tablet Previous Rx's ?Medication ?Instructions ?Recorded albuterol sulfate 90 mcg/actuation 2 puff inhalation Q6H PRN 10/31/24 aerosol inhaler shortness of breath or wheezing #8.5 grams azithromycin 500 mg tablet 500 mg PO QDAY 3 days #3 tabs 10/31/24 (Zithromax TRI-VICENTE) cefdinir 300 mg capsule 300 mg PO BID #14 caps 10/31/24 prednisone 20 mg tablet 20 mg PO QDAY 3 days #3 tabs 10/31/24 Allergies Allergy/AdvReac Type Severity Reaction Status Date / Time No Known Allergies Allergy Unknown Verified 08/17/24 10:06 Review of Systems Review of Systems Systems Reviewed: All systems reviewed, normal except as documented Past Medical History Past Medical History CARDIAC: Positive Cardiac Disorders GASTROINTESTINAL: Positive Gastrointestinal Disorders, Pancreatitis and Gall Bladder Disease GENITOURINARY: Positive Genitourinary Disorders and Benign Prostatic Hyperplasia MUSCULOSKELETAL: Positive Musculoskeletal Disorders, Arthritis and Carpal Tunnel Syndrome ENT: Positive Cataracts ENDOCRINE: Positive Endocrine Disorders, Diabetes Mellitus Type 1, Diabetes Mellitus Type 2 and Hypothyroidism OTHER HISTORY: Positive Hospitalization and Chicken Pox Family History FAMILY HISTORY: Positive Family Cardiac Disorders and Family Surgery Surgical History SURGICAL: Positive Eye Surgery and Vasectomy ED Exam Narrative Physical exam: See [facility] for Dr. Castillo's Physical Exam Documentation. Course Quality Measures none Orders Category Date Time Status Bedside COVID-19 Antigen Test NOW Care 10/30/24 21:56 Completed Bedside Influenza A&B Antigen Test NOW Care 10/30/24 21:56 Completed Saline [Insert IV] NOW Care 10/30/24 21:56 Completed Straight [In and Out Catheter] X1 Care 10/30/24 21:56 Completed US venous doppler LE BI Stat Exams 10/30/24 21:58 Completed XR chest 1V portable Stat Exams 10/30/24 21:57 Completed Amylase Stat Lab 10/30/24 22:06 Completed BNP [B-Type Natriuretic Peptide] Stat Lab 10/30/24 22:06 Completed Bilirubin,Direct Stat Lab 10/30/24 22:06 Completed Blood Culture (Lab) Stat Lab 10/30/24 22:08 Received CBC Stat Lab 10/30/24 22:06 Completed CMP [Comprehensive Metabolic Panel] Stat Lab 10/30/24 22:06 Completed CRP [C-Reactive Protein] Stat Lab 10/30/24 22:06 Completed ESR [Sed Rate (ESR)] Stat Lab 10/30/24 22:06 Completed Lactate (Lactic Acid) Stat Lab 10/30/24 22:06 Completed Lipase Stat Lab 10/30/24 22:06 Completed Magnesium Stat Lab 10/30/24 22:06 Completed Procalcitonin Stat Lab 10/30/24 22:06 Completed UA, C/S IF [Urinalysis, C/S if Indicated] Stat Lab 10/30/24 23:30 Completed Azithromycin Po [Zithromax PO] Med 10/30/24 22:41 Discontinued 500 mg PO X1 ONE Ondansetron Inj [Zofran Inj] Med 10/30/24 21:56 Discontinued 4 mg IVP X1 ONE Sodium Chloride 0.9% 1000 ml [Ns] 1,000 ml Med 10/30/24 21:56 Discontinued IV 999 mls/hr cefTRIAXone/D5w 1gm IV premix [Rocephin/D5w 1gm IV Med 10/30/24 22:41 Discontinued premix] 1 g in 50 ml IV X1 Vital Signs Vital signs: Vital Signs Temperature 98.9 F 10/30/24 21:13 Pulse Rate 77 10/30/24 21:13 Respiratory Rate 16 10/30/24 21:13 Blood Pressure 122/66 10/30/24 21:13 Pulse Oximetry (%) 95 10/30/24 21:13 Oxygen Delivery Method Room Air 10/30/24 21:13 Weakness MDM Narrative MDM Narrative:: Scribe Attestation: Roz, Aleah Cleary, am scribing for and in the presence of Dr. Castillo. Provider Notation: Although this document has been carefully reviewed, there may still be some phonetic and other typographical errors. These errors are purely grammatical due to imperfections in the software program and should not be construed in any way to compromise the substance of the patient's medical care during this visit. This section includes all my notes and documentations, including HPI, PE, and ED course. Cullen Castillo MD HPI: 79 y/o male with several days of fever and cough and dyspnea and leg swelling. No chest pain. No productive cough. No other complaints. ROS: All negative except as documented in HPI. Physical Exam: General: Alert and oriented. No acute distress when he remains still. Eyes: Conjunctivae and lids clear. ENT: No nasal congestion. Pharynx normal. Tympanic membrane normal bilaterally. Neck: Supple. No JVD. Heart: RRR. Lungs: No respiratory distress. Good air movement with rales. Abdomen: Soft and nontender. Normal bowel sounds. No distension. No rebound or guarding. Back: No CVA tenderness. Legs: Mild edema of lower legs. Skin: Warm and dry. Neuro: Alert and oriented X 3. I reviewed EMS notes. I reviewed all diagnostic test results: My interpretation of the chest x-ray is infiltrates. My review of the Venous Doppler Study report is: No DVT. Blood tests and urine tests unremarkable. Covid/Influenza: Negative. At this point, diagnoses include: Pneumonia. Treatment here included: Zithromax 500 mg, Zofran 4 mg, IVF, Rocephin 1 g. Significant improvement noted. Recommended outpatient care. Based on my best medical judgment, made decision no further evaluation or treatment indicated at this time. Patient understands and agrees to the discharge instructions customized and printed, see below. Discharge instructions from Dr. Castillo: --No physical exertion for 3 days to help rest the lungs. ?No smoking or exposure to smoking or pets or dust or cold or humidity. --Zithromax and cefdinir to kill the germs causing the pneumonia. --Prednisone to help decrease the swelling in the airways. --Albuterol 2 puffs every 4-6 hours as needed for cough or shortness of breath. --When resting or sitting or sleeping, elevate your feet/ankles above your waist level for your leg swelling. --See a private doctor on 11/23 for recheck. Ask to review all test results and official radiology reports, to make sure you receive all necessary followups and monitoring. Ask for help until you are completely better. --Seek immediate medical care with worsening or with any concerns. Cullen Castillo MD Patient data External records reviewed:: [facility] previous records (Reviewed prior ED records from 03/24/24. Patient was seen for Cholangitis.) and EMS form Clinical information provided by:: patient and EMS Social determinants that could affect healthcare access:: none Patient has the following chronic illnesses:: Pancreatitis, Gall Bladder Disease, Benign Prostatic Hyperplasia, Arthritis, Carpal Tunnel Syndrome, Cataracts, Diabetes Mellitus Type 1, Diabetes Mellitus Type 2 and Hypothyroidism How is presenting disease/condition affected by chronic disease/condition?: exacerbated by Evaluation data The following diagnostics were reviewed and interpreted by me:: lab results and radiology exam(s) Lab and/or radiology exams considered but not ordered:: None Interpretation Summary: I reviewed all diagnostic test results: My interpretation of the chest x-ray is infiltrates. My review of the Venous Doppler Study report is: No DVT. Blood tests and urine tests unremarkable. Covid/Influenza: Negative. Medications / Prescriptions Medications or Prescriptions considered but not ordered:: None Medication administrations:: Medication Administration History Discontinued Medications Azithromycin (Azithromycin 250 Mg Tablet) 500 mg PO X1 ONE Stop: 10/30/24 22:42 Last Admin: 10/30/24 23:23 Dose: 500 mg Documented By: AJ Sodium Chloride (Ns) 1,000 mls @ 999 mls/hr IV .Q1H1M ONE Stop: 10/30/24 22:56 Last Infusion: 10/30/24 23:28 Dose: Infused Documented By: Admin: 10/30/24 22:22 Dose: 999 mls/hr Documented By: AJ Ceftriaxone Sodium/Dextrose (Rocephin/D5w 1gm Iv Premix) 1 g in 50 mls @ 100 mls/hr IV X1 ONE Stop: 10/30/24 23:10 Last Infusion: 10/31/24 00:00 Dose: Infused Documented By: Admin: 10/30/24 23:23 Dose: 100 mls/hr Documented By: AJ Ondansetron HCl (Ondansetron Inj 2 Mg/Ml Inj 2 Ml) 4 mg IVP X1 ONE; Protocol Stop: 10/30/24 21:57 Last Admin: 10/30/24 22:22 Dose: Not Given Documented By: AJ Non-Admin Reason: Patient Refused Zithromax 500 mg, Zofran 4 mg, IVF, Rocephin 1 g IV. Consultations Consultation(s) initiated? (list below): No Diagnosis Weakness Differential Diagnosis: acute myocardial infarction, anemia, hypoglycemia, hypothyroidism, rhabdomyolysis, sepsis, dehydration and other (COVID-19, Influenza) Most likely diagnosis given after review of the tests above:: Pneumonia Admission Indicated Admission indicated?: not indicated Explain why admission is indicated or not indicated:: With significant improvement and no condition needing emergent intervention, there was no indication for admission. Admission Request Was there a request for admission?: No Disposition Plan Disposition Plan: Discharge Discharge Attestation Discharge Attestation: The patient and all family members were given an opportunity to ask questions and understood the discharge instructions. Discharge instructions specifically effects, indications for sooner follow up or return to the emergency department, and the expected course of current diagnosis. Patient condition: Stable Discharge Plan Plan Patient Disposition: HOME (Self Care) Prescriptions/Referrals Prescriptions/Med Rec: New prednisone 20 mg tablet 20 mg PO QDAY 3 Days Qty: 3 0RF Taper: Prednisone Taper 20 mg DAILY for 2 Days and 0 Hour 10 mg DAILY for 2 Days and 0 Hour 5 mg DAILY for 7 Days and 0 Hour albuterol sulfate 90 mcg/actuation HFA aerosol inhaler 2 puff inhalation Q6H PRN (Reason: shortness of breath or wheezing) Qty: 8.5 0RF cefdinir 300 mg capsule 300 mg PO BID Qty: 14 0RF azithromycin [Zithromax TRI-VICENTE] 500 mg tablet 500 mg PO QDAY 3 Days Qty: 3 0RF No Action cholecalciferol (vitamin D3) 50 mcg (2,000 unit) tablet 50 mcg PO QDAY aspirin 81 mg tablet,delayed release (DR/EC) 81 mg PO QDAY carvedilol 3.125 mg tablet 3.125 mg PO BID Rx Instructions: must administer with a meal/food atorvastatin 80 mg tablet 80 mg PO QDAY tamsulosin [Flomax] 0.4 mg Capsule 0.4 mg PO HS levothyroxine [Levoxyl] 50 mcg Tablet 50 mcg PO QDAY Toujeo SoloStar U-300 Insulin 300 unit/mL (1.5 mL) Insulin Pen 25 unit SUBCUT QDAY Patient Comments: STATES HE TAKES IT AT 1630 EVERY DAY Centrum [employer] Men's 8 mg iron- 200 mcg-600 mcg Tablet 1 tab PO DAILY Toujeo SoloStar U-300 Insulin 300 unit/mL (1.5 mL) insulin pen SUBCUT Referrals: No Primary/Family,Physician [Primary Care Provider] - In 1 week Problem List Clinical Impression: Pneumonia Patient/Caregiver Discharge Instructions Discharge Activity: activity as tolerated Education Materials: ED Pneumonia (Adult) Additional Instructions: Discharge instructions from Dr. Castillo: --No physical exertion for 3 days to help rest the lungs. ?No smoking or exposure to smoking or pets or dust or cold or humidity. --Zithromax and cefdinir to kill the germs causing the pneumonia. --Prednisone to help decrease the swelling in the airways. --Albuterol 2 puffs every 4-6 hours as needed for cough or shortness of breath. --When resting or sitting or sleeping, elevate your feet/ankles above your waist level for your leg swelling. --See a private doctor on 11/23 for recheck. Ask to review all test results and official radiology reports, to make sure you receive all necessary follow-ups and monitoring. Ask for help until you are completely better. --Seek immediate medical care with worsening or with any concerns. Print Language: French Stand Alone Forms: Ana Award Info., Patient Portal Info Letter
[2024-10-31 01:05] VITALS: BP 100/60; PULSE 72; RESP 19; TEMP 36.7; O2SAT 95
--- NOTE | 2024-10-31 19:23 | PC.NURSE ---
CALL FROM [facility] IN LAB AT 183 THAT PT'S CULTURE CAME BACK GRAM + COCCI. TALKED TO DR. RODRIGUES AT 1920 TO HOW HE WANTED TO PROCEED. HE SAID TO CALL THE LAB AND IF IT WAS THE FIRST SET OF BOTTLES IT WAS PROBABLY CONTAMINATED. IF IT WAS THE SECOND SET HE WOULD PROCEED FURTHER. TALKED W/ [facility] IN [facility] AND SHE SAID IT WAS THE FIRST SET. INFORMED.
== END 2024-10-31 01:07 | disposition home or self-care (01) ==
PROVIDERS: Emergency Provider Emergency Medicine
DX: J18.9 Pneumonia, unspecified organism (principal); M79.89 Other specified soft tissue disorders
CPT/HCPCS: 36415; 71045; 80053; 81001; 82150; 82248; 83605; 83690; 83735; 83880; 84145; 85025; 85652; 86140; 87040; 87077; 87186; 87400; 87811; 93970; 96361; 96365; 99285; J0696; J7030; A9270

== ENCOUNTER 2024-11-04 10:54 | Emergency (ER) | payer MEDICARE, BC, SELFPAY ==
[2024-11-04] VITALS (9 sets, daily range): BP systolic 98–132; BP diastolic 53–74; PULSE 60–88; RESP 16–19; TEMP 36.7–38.5; O2SAT 95–98
--- NOTE | 2024-11-04 | XR_ITS ---
MRI abdomen, without contrast. MRCP Date and time of exam: November 04, 2024, 1755 hrs. Indications: Chest abdomen pain today, pneumobilia, multiple enhancing liver lesions on CT examination of the abdomen today Technique: Multiple axial and coronal images of the abdomen have been obtained with the Siemens 1.5T MRI scanner. Images obtained included T1 weighted transverse images, T2-weighted transverse images, T2-weighted transverse images fat-suppressed, T2 weighted haste fat suppressed transverse images, T1 weighted images, in and out of phase images, T2-weighted coronal images, breath hold, T2 weighted haze coronal images as well as T2 weighted coronal thick slab images, MRCP. Findings: Focal liver lesions are not depicted on this noncontrast study Absent gallbladder Magnetic susceptibility artifact at the level of the biliary tree No ascites No bowel obstruction Spleen is not enlarged No hydronephrosis Aorta normal size Mild small bowel ileus Impression: Recommend elective follow-up MRI abdomen post intravenous contrast to best assess for hepatic lesions No ascites,. Extensive magnetic susceptibility artifact at the level of the common hepatic and common bile duct
--- NOTE | 2024-11-04 | XR_ITS ---
Examination: MRI abdomen with intravenous contrast. MRI abdomen without intravenous contrast. Date and time of exam: November 04, 2024, 1755 hrs. Technique: Multiple axial, sagittal and coronal sections of the abdomen obtained. Transverse images, TR 6020, TE 107. T1 weighted transverse images, TR 582, TE 9.5. T2-weighted sagittal images, TR 4000, TE 105. T2-weighted sagittal images, TR 4000, TE 5. Coronal images, TR 4210, TE 107. Axial and coronal images are obtained post 19 cc intravenous injection, gadolinium. Findings: No intrahepatic biliary tract dilatation Postcontrast images demonstrate irregular enhancement throughout the liver without definite focal liver lesions Magnetic susceptibility artifact at the level of the common hepatic common bile duct No pancreatic or adrenal mass No hydronephrosis Aorta normal size No ascites No abdominal lymphadenopathy Impression: Enhancement in the liver is heterogeneous but no discrete abnormal enhancing liver lesions
--- NOTE | 2024-11-04 11:14 | PD.EDWEAK ---
ED Weakness RME/HPI General Chief complaint: Weakness Stated complaint: FEVER Time Seen by Provider: 11/04/24 11:28 Arrival date/time: 11/04/24 10:54 RME / HPI RME / HPI Narrative: DR. ONTIVEROS MAIN ED EVALUATION: 79 y/o male with Hx of DM, BPH, Hypothyroidism and Recent Hx of PNA BIBA from presents with generalized weakness, fever, diarrhea, cough, and slow to respond x 2 days. Patient was diagnosed with PNA 3 weeks ago and is being treated with Cefdinir. Per EMS, patient was tachycardic on scene with heart rate of 108, but was not hypoxicPatient also takes Levothyroxine, Coreg, and Flomax. Denies abdominal pain and dysuria. No allergies to medication reported. Patient has not smoked in 4 years. Upon patient's arrival, patient's told us that the patient has a complicated history of biliary stent placement, occlusion requiring replacement, all performed at [facility]. Per the patient's the last stent replacement was in May of this year. Dr Perez at [facility] performed these procedures. Related Data Home Medications ?Medication ?Instructions ?Recorded ?Confirmed insulin glargine U-300 conc 300 25 unit subcut QDAY 05/23/20 08/17/24 unit/mL (1.5 mL) subcutaneous pen (Toujeo SoloStar U-300 Insulin) levothyroxine 50 mcg tablet 50 mcg PO QDAY 05/23/20 08/17/24 (Levoxyl) tamsulosin 0.4 mg capsule (Flomax) 0.4 mg PO HS 05/23/20 08/17/24 insulin glargine U-300 conc 300 unit subcut 09/09/20 08/17/24 unit/mL (1.5 mL) subcutaneous pen (Toujeo SoloStar U-300 Insulin) multivit,Ca,min-iron 8 mg-folic 1 tab PO DAILY 09/09/20 08/17/24 acid 200 mcg-lycopene 600 mcg tablet (Centrum Ultra Men's) aspirin 81 mg tablet,delayed 81 mg PO QDAY 01/20/22 08/17/24 release atorvastatin 80 mg tablet 80 mg PO QDAY 01/20/22 08/17/24 carvedilol 3.125 mg tablet 3.125 mg PO BID 01/20/22 08/17/24 cholecalciferol (vitamin D3) 50 50 mcg PO QDAY 04/10/24 08/17/24 mcg (2,000 unit) tablet Previous Rx's ?Medication ?Instructions ?Recorded albuterol sulfate 90 mcg/actuation 2 puff inhalation Q6H PRN 10/31/24 aerosol inhaler shortness of breath or wheezing #8.5 grams cefdinir 300 mg capsule 300 mg PO BID #14 caps 10/31/24 Allergies Allergy/AdvReac Type Severity Reaction Status Date / Time No Known Allergies Allergy Unknown Verified 08/17/24 10:06 Review of Systems Review of Systems Systems Reviewed: All systems reviewed, normal except as documented Past Medical History Past Medical History CARDIAC: Positive Cardiac Disorders RESPIRATORY: Positive Pneumonia GASTROINTESTINAL: Positive Gastrointestinal Disorders, Pancreatitis and Gall Bladder Disease GENITOURINARY: Positive Genitourinary Disorders and Benign Prostatic Hyperplasia MUSCULOSKELETAL: Positive Musculoskeletal Disorders, Arthritis and Carpal Tunnel Syndrome ENDOCRINE: Positive Endocrine Disorders, Diabetes Mellitus Type 1, Diabetes Mellitus Type 2 and Hypothyroidism OTHER HISTORY: Positive Hospitalization and Chicken Pox Family History FAMILY HISTORY: Positive Family Cardiac Disorders and Family Surgery Surgical History SURGICAL: Positive Eye Surgery and Vasectomy Social History SMOKING STATUS: Former smoker SMOKING END DATE: 10/30/21 ED Exam Narrative Physical exam: GEN. APPEARANCE: The patient is alert awake oriented X-3 looks acutely ill. patient has good eye contact. Patient is cooperative, but slow to respond. Appears weak. VITALS: All vitals were reviewed and the pulse ox is 98% on room air which is normal according to my interpretation. HEENT: Normocephalic, atraumatic. Pupils are equal and reactive. Oral mucosa is moist. Patent Nares NECK: Supple, nontender, no thyromegaly, no meningismus, no JVD CHEST: Symmetrical, atraumatic, and with equal expansion , Nontender on palpation no deformity and no crepitus. CARDIOVASCULAR: Heart regular rhythm no murmur or gallop rub or extra beats. LUNGS: Clear to auscultation bilaterally with symmetrical chest rise. No laboring tachypnea or wheezing. No intercostal subcostal retraction. No rales and no rhonchi. ABDOMEN: Soft, flat, nontender to palpation, no guarding or rebound tenderness. There are no abnormal masses palpated. Active and normal bowel sounds. EXTREMITIES: Nontender. Pitting edema left mid-ankle. Bilateral symmetric. No cyanosis. Patient is able to move all 4 extremities well, with full ROM and decreased BLE pulses. SKIN: Warm and dry, patient does have jaundice however no other rashes appreciated NEURO: Patient is GARCÍA x 4, Cranial nerves II through XII grossly intact. There is no focal neurologic deficits noted. GCS is 15, PNS and SURG PHYSICIAN ASST appear grossly intact. Slow to respond. Appears weak. Able to ambulate. PSYCHIATRIC: Patient is in normal mood and affect. Course Course Course Narrative: Sepsis alert initiated. Orders made at this time are congruent with ED Adult Sepsis Order List. Re-evaluation is to be completed. Quality Measures Possible source: pulmonary Blood cultures ordered: yes Antibiotic ordered: Yes Pertinent labs: 11/04/24 11/04/24 11:50 11:54 Lactic Acid 0.9 mMol/L (0.4-2.0) Procalcitonin 0.29 ng/ml (0.0-0.49) sepsis Orders Category Date Time Status Bedside Blood Glucose NOW Care 11/04/24 11:35 Active Bedside COVID-19 Antigen Test NOW Care 11/04/24 11:29 Active Bedside Influenza A&B Antigen Test NOW Care 11/04/24 11:[address] Screening NOW Care 11/04/24 11:[address] Screening NOW Care 11/04/24 13:14 Active Cyber Intelligence Analyst Q4H START 00 Care 11/04/24 11:35 Active EKG (ED ONLY) *Do not use* NOW Care 11/04/24 11:29 Completed Glucose [Bedside Blood Glucose] Q1HR Care 11/04/24 13:15 Active Insert IV NOW Care 11/04/24 11:35 Active MRI Screening NOW Care 11/04/24 14:11 Active MRI Screening NOW Care 11/04/24 15:58 Active Strict Intake and Output Routine Care 11/04/24 11:35 Ordered Referral - Waste Management Recycling Technician Stat Cons 11/04/24 16:[address] angio chest abdomen pelvis Stat Exams 11/04/24 13:[address] head/brain wo con Stat Exams 11/04/24 11:29 Completed CXR [XR chest 1V] Stat Exams 11/04/24 11:29 Completed EKG (ED Only) Stat Exams 11/04/24 11:29 Draft MR MRCP Stat Exams 11/04/24 Ordered MR abdomen wo/w con Stat Exams 11/04/24 Ordered US abdomen limited Stat Exams 11/04/24 12:59 Completed BNP [B-Type Natriuretic Peptide] Stat Lab 11/04/24 11:54 Completed Bilirubin,Direct Stat Lab 11/04/24 11:54 Completed Bilirubin,Total Stat Lab 11/04/24 11:54 Completed Blood Culture (Lab) Stat Lab 11/04/24 11:54 Received CBC Stat Lab 11/04/24 11:54 Completed CMP [Comprehensive Metabolic Panel] Stat Lab 11/04/24 11:54 Completed Hepatitis Acute Panel Stat Lab 11/04/24 11:54 Received Lactate (Lactic Acid) Stat Lab 11/04/24 11:50 Completed Lipase Stat Lab 11/04/24 11:54 Completed Partial Thromboplastin Time Stat Lab 11/04/24 11:54 Completed Procalcitonin Stat Lab 11/04/24 11:54 Completed Prothrombin Time with INR Stat Lab 11/04/24 11:54 Completed Troponin I Stat Lab 11/04/24 11:54 Completed UA, C/S IF [Urinalysis, C/S if Indicated] Stat Lab 11/04/24 12:57 Completed Dextrose 50% Syr [D50w Syringe Abboject] Med 11/04/24 12:57 Discontinued 50 ml IVP X1 ONE Piper/Tazo Inj [Zosyn Inj] 4.5 gm Med 11/04/24 11:36 Discontinued Sodium Chloride 0.9% (Pop) [NS 0.9% mini bag] 100 ml IV X1 Potassium Chloride [K-Dur] Med 11/04/24 13:16 Discontinued 40 meq PO X1 ONE Ringers Lactated 1000 ml [Lactated Ringers] 500 ml Med 11/04/24 12:19 Discontinued IV 500 mls/hr Ringers Lactated 500 ml [Lactated Ringers] 500 ml Med 11/04/24 11:38 Discontinued IV 500 mls/hr Vancomycin Pharmacy to Dose Med 11/04/24 11:35 Active 1 each IV QDAY PRN Vancomycin/Ns 1 gm Ivpb 200 ml Med 11/04/24 11:45 Discontinued IV X1 Oxygen Delivery NOW RT 11/04/24 11:35 Active Vital Signs Vital signs: Vital Signs Temperature 101.3 F H 11/04/24 11:02 Pulse Rate 86 11/04/24 11:02 Respiratory Rate 19 11/04/24 11:02 Blood Pressure 132/74 H 11/04/24 11:02 Pulse Oximetry (%) 98 11/04/24 11:02 Oxygen Delivery Method Room Air 11/04/24 11:02 Weakness MDM Narrative MDM Narrative:: Scribe Attestation: I, Aleah Cleary, am scribing for and in the presence of Dr. Ontiveros. Provider Notation: Although this document has been carefully reviewed, there may still be some phonetic and other typographical errors. These errors are purely grammatical due to imperfections in the software program and should not be construed in any way to compromise the substance of the patient's medical care during this visit. Patient is a 79-year-old male with medical history notable for hyperlipidemia, recurrent pancreatitis, biliary stent placement, biliary strictures,, heart failure, hypothyroidism, send Emergency Department feeling weak, and having a hard time breathing. Vital signs and exam as listed. Concern for bacteremia, pneumonia, urinary tract infection, viral syndrome among others. Of note, patient was seen in the emergency department not too long ago, had blood cultures that were positive for bacteremia. We would not call the patient back today however patient arrived. Ordered sepsis order set. Provided judicious fluid resuscitation given patient's lower extremity edema and history of CHF. Provided broad-spectrum antibiotics. Labs with evidence of white blood cell 10.8 left shift of 92%. Patient has been on antibiotics at home. Patient with sodium 130, potassium 3.2 chloride 97, will replete in the emergency department.. Patient's glucose is 64, provided an amp of D50 also provided juice. Patient's glucose is being monitored closely by nursing staff as well as the patient. Lactic acid normal. T. bili is 4.7, AST 252, ALT 204, alk phos 1132. T. bili 4.8, D bili 3.2, concern for obstructive pathology. This is an increase from previous. Ordered right upper quadrant ultrasound, CT scan of the abdomen and pelvis and hepatitis studies, also ordered MRCP. Patient without any abdominal pain. BNP 253. Procalcitonin 0.29. Troponin not elevated, EKG sinus tachycardia. Head CT negative. Right upper quadrant ultrasound with evidence of fatty liver. CT abdomen pelvis with evidence of pneumobilia, biliary stent, multiple enhancing lesions in the liver. Given findings on CT concerning for possible abscess in the liver, possible obstructed biliary stent, immediately consulted transfer center for transfer back to [facility] where patient had his care. Ordered MRCP, as well as MRI abdomen with and without contrast. Updated patient as well as his at bedside. At this time a shift is ended up transition care to oncoming provider. Patient is transferred to [facility], MRI and safe dispo. Patient data External records reviewed:: [facility] previous records (Reviewed prior ED records from 03/24/24. Patient was seen for Cholangitis.) and EMS form Clinical information provided by:: patient and EMS Social determinants that could affect healthcare access:: none Patient has the following chronic illnesses:: Pancreatitis, Gall Bladder Disease, Benign Prostatic Hyperplasia, Arthritis, Carpal Tunnel Syndrome, Diabetes Mellitus Type 1, Diabetes Mellitus Type 2, Hypothyroidism How is presenting disease/condition affected by chronic disease/condition?: exacerbated by Evaluation data The following diagnostics were reviewed and interpreted by me:: lab results, radiology exam(s) and EKG tracing(s) (EKG done at 1132, 77 bpm, normal intervals, non-specific T-wave changes, not a cardiac alert. - Interpreted by Dr. Alma Rosa Ontiveros.) Lab and/or radiology exams considered but not ordered:: None Interpretation Summary: RADIOLOGY Chest X-Ray: Findings: Mild prominence of ventricle. Median sternotomy wires. No pneumonia or pulmonary edema. Impression: No pneumonia or pulmonary edema. Head/Brain CT: Findings: No significant ventricular enlargement. Intra-axial or extra-axial hemorrhage density is not seen. No mass effect or midline shift Basal cisterns are not remarkable. Fourth ventricle is midline. Cranial vault intact. Impression: Negative for acute hemorrhage, mass effect or midline shift Advise clinical correlation and follow-up accordingly. Chest/Abdomen/Pelvis CTA: Findings: No thoracic aortic aneurysmal dilatation or dissection. No pulmonary artery filling defects. Mild enlargement cardiac contour. Patchy areas of pneumonia in the left upper lobe. Pneumobilia with fatty infiltration throughout the liver. Multiple enhancing lesions throughout the liver, including posterior upper right lobe of the liver 25 mm Spleen is not enlarged Absent gallbladder Biliary stent No definite pancreatic mass. No hydronephrosis. Abdominal aorta is not enlarged. No bowel obstruction. Partial visualization normal appendix. Distended urinary bladder. Transverse prostate dimension 4.3 cm Significant osteopenia Grade 1 spondylolisthesis L5 on S1 with diffuse advanced lumbar degenerative disc disease Abundant stool in the rectum with thickening of the rectal wall. Impression: Patchy areas of pneumonia in the left upper lobe. Negative for pulmonary artery emboli. Pneumobilia, multiple enhancing lesions in the upper right lobe of the liver, recommend MRI abdomen liver follow-up pre and postcontrast Biliary stent in satisfactory position. No definite pancreatic mass. Distended urinary bladder. Mild prostatomegaly. No bowel obstruction or diverticulitis. Abundant stool in the rectum with thickening the rectal wall, clinical correlation advised Abdomen US: Findings: Absent gallbladder. Normal common bile duct 0.4 cm. Pancreatic head 2.3 cm. Liver 16 cm fatty infiltration. Normal hepatopedal portal venous flow. Patent IVC. Impression: Normal common bile duct. Mild hepatomegaly fatty infiltration no focal liver lesions. Cholangiopancreatography MRI: Pending official radiology report. Abdomen MRI w/o Contrast: Pending official radiology report. Abdomen MRI w/ Contrast: Pending official radiology report. Medications / Prescriptions Medications or Prescriptions considered but not ordered:: None Medication administrations:: Medication Administration History Pharmacy Consult (Vancomycin Pharmacy To Dose 1 Each Each) 1 each IV QDAY PRN PRN Reason: CONSULT Stop: 12/04/24 11:34 Discontinued Medications Dextrose (Dextrose 50%-Water Inj 50 Ml Syringe) 50 ml IVP X1 ONE Stop: 11/04/24 12:58 Last Admin: 11/04/24 13:06 Dose: Not Given Documented By: HUE Non-Admin Reason: pt drank juice and BS went up Piperacillin Sod/Tazobactam (Sod 4.5 gm/ Sodium Chloride) 100 mls @ 200 mls/hr IV X1 ONE Stop: 11/04/24 12:05 Last Infusion: 11/04/24 13:06 Dose: Infused Documented By: Admin: 11/04/24 12:22 Dose: 200 mls/hr Documented By: HUE Vancomycin/Sodium Chloride (Vancomycin/Ns 1 Gm Ivpb) 200 mls @ 120 mls/hr IV X1 ONE Stop: 11/04/24 13:24 Last Infusion: 11/04/24 14:19 Dose: Infused Documented By: Admin: 11/04/24 12:22 Dose: 120 mls/hr Documented By: HUE Lactated Ringer's (Lactated Ringers) 500 mls @ 500 mls/hr IV .Q1H STA Stop: 11/04/24 12:37 Last Admin: 11/04/24 12:27 Dose: Not Given Documented By: HUE Non-Admin Reason: Discontinued Lactated Ringer's (Lactated Ringers) 500 mls @ 500 mls/hr IV .Q1H STA Stop: 11/04/24 13:18 Last Infusion: 11/04/24 13:37 Dose: Infused Documented By: Admin: 11/04/24 12:21 Dose: 500 mls/hr Documented By: HUE Potassium Chloride (Potassium Chloride 20 Meq Tabcr) 40 meq PO X1 ONE Stop: 11/04/24 13:17 Last Admin: 11/04/24 13:23 Dose: 40 meq Documented By: HUE See above if any. Consultations Consultation(s) initiated? (list below): Yes Consultation #1 (Physician, Specialty, Details): Hospitalist made aware of the patient?s HPI, PMHx, lab and/or radiology results. Treatment plan was discussed. Does not accept patient for admission and advises transfer to [facility] Urology. Time: 16:10 Diagnosis Weakness Differential Diagnosis: acute myocardial infarction, anemia, hypoglycemia, hypothyroidism, rhabdomyolysis, sepsis, dehydration and other (PNA) Most likely diagnosis given after review of the tests above:: Bacteremia, Hyperbilirubinemia, Biliary stent obstruction, Pneumobilia, Pneumonia Admission Indicated Admission indicated?: not indicated Explain why admission is indicated or not indicated:: Pending MRI, MRCP, and transfer to [facility]. Admission Request Was there a request for admission?: No Disposition Plan Disposition Plan: other (specify) (Signed out to Dr. Aranda at 6 PM.) Discharge Plan Prescriptions/Referrals Prescriptions/Med Rec: No Action cholecalciferol (vitamin D3) 50 mcg (2,000 unit) tablet 50 mcg PO QDAY aspirin 81 mg tablet,delayed release (DR/EC) 81 mg PO QDAY carvedilol 3.125 mg tablet 3.125 mg PO BID Rx Instructions: must administer with a meal/food atorvastatin 80 mg tablet 80 mg PO QDAY tamsulosin [Flomax] 0.4 mg Capsule 0.4 mg PO HS levothyroxine [Levoxyl] 50 mcg Tablet 50 mcg PO QDAY Toujeo SoloStar U-300 Insulin 300 unit/mL (1.5 mL) Insulin Pen 25 unit SUBCUT QDAY Patient Comments: STATES HE TAKES IT AT 1630 EVERY DAY Centrum Ultra Men's 8 mg iron- 200 mcg-600 mcg Tablet 1 tab PO DAILY Toujeo SoloStar U-300 Insulin 300 unit/mL (1.5 mL) insulin pen SUBCUT albuterol sulfate 90 mcg/actuation HFA aerosol inhaler 2 puff inhalation Q6H PRN (Reason: shortness of breath or wheezing) Qty: 8.5 0RF cefdinir 300 mg capsule 300 mg PO BID Qty: 14 0RF Referrals: Martinez Delgado MD [Primary Care Provider, Family Practice] - In 1 week Problem List Clinical Impression: Pneumobilia, Transaminitis, Sepsis, Bacteremia, Pneumonia, Biliary stent obstruction, Hyperbilirubinemia Patient/Caregiver Discharge Instructions Print Language: Lao
--- NOTE | 2024-11-04 11:29 | EKG_ITS ---
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
--- NOTE | 2024-11-04 11:29 | XR_ITS ---
Examination: AP chest single view. Technique AP portable upright chest single view. Date and time: November 04, 2024, 11:37 AM, comparison 10/30/2024. Indications: Difficulty breathing today, history pneumonia. Findings: Mild prominence of ventricle. Median sternotomy wires. No pneumonia or pulmonary edema. Impression: No pneumonia or pulmonary edema.
--- NOTE | 2024-11-04 11:29 | XR_ITS ---
Examination: CT brain head without contrast. 2-D sagittal coronal reconstructions Date and time of exam:November 04, 2024, 1500 hrs. Indications: Onset generalized weakness today CTDI: vol (mGy):49.8. DLP: (mGycm):998. Technique: Multiple CT axial sections of the brain have been obtained, 5 mm slice thickness. Contrast has not been administered. 2-D sagittal, coronal reconstructions have been obtained Low dose protocols were performed. One or more of the following dose reduction techniques were used; automated exposure control, adjustment of the mA and/or KV according to patient size, use of iterative reconstruction technique. Findings: No significant ventricular enlargement. Intra-axial or extra-axial hemorrhage density is not seen. No mass effect or midline shift Basal cisterns are not remarkable. Fourth ventricle is midline. Cranial vault intact. Impression: Negative for acute hemorrhage, mass effect or midline shift Advise clinical correlation and follow-up accordingly.
[2024-11-04 12:05] LABS: Lactate (Lactic Acid) 0.9 mMol/L (0.4-2.0)
[2024-11-04 12:19] LABS: Basophils # (Auto) 0.0 Thou/mm3 (0.0-0.2); Basophils % (Auto) 0 % (0-2.5); Eosinophils # (Auto) 0.0 Thou/mm3 (0.0-0.5); Eosinophils % (Auto) 0 % (0-10); Hematocrit 35.8 % (41.0-53.0); Hemoglobin 12.7 g/dL (13.5-16.0); Immature Granulocytes Auto 0.06 Thou/mm3 (0.00-0.00); Lymphocytes # (Auto) 0.3 Thou/mm3 (1.0-4.8); Lymphocytes % (Auto) 3 % (10-50); Mean Corpuscular HGB Conc 35.5 g/dl (31.0-37.0); Mean Corpuscular Hemoglobin 34.0 pg (25.0-35.0); Mean Corpuscular Volume 96 fL (80-100); Monocytes # (Auto) 0.5 Thou/mm3 (0.0-0.8); Monocytes % (Auto) 4 % (0-12); Neutrophils # (Auto) 10.0 Thou/mm3 (1.8-7.7); Neutrophils % (Auto) 92 % (37-80); Nucleated Red Blood Cell # 0.00 Thou/mm3 (0.00-0.00); Nucleated Red Blood Cell % 0 /100 WBC (0); Platelet Count 168 Thou/mm3 (140-440); RDW Standard Deviation 49.6 fL (35.1-43.9); Red Blood Count 3.74 Miln/mm3 (4.50-5.90); White Blood Count 10.8 Thou/mm3 (3.8-10.6)
[2024-11-04] MEDS: RINGERS LACTATED 1000 ML 500 ML IV (12:21)
[2024-11-04] MEDS: VANCOMYCIN/NS 1 GM IVPB 200 ML IV (12:22)
[2024-11-04] MEDS: PIPER/TAZO INJ 4.5 GM in SODIUM CHLORIDE 0.9% (POP) 100 ML IV (12:22)
[2024-11-04 12:26] LABS: INR 1.2 (0.9-1.3); Partial Thromboplastin Time 26.7 Seconds (22.0-36.0); Prothrombin Time 13.3 Seconds (9.0-12.2)
[2024-11-04 12:39] LABS: B-Type Natriuretic Peptide 253 pg/mL (0-100)
[2024-11-04 12:54] LABS: Alanine Aminotransferase 204 U/L (10-49); Albumin, Serum 3.2 gm/dL (3.4-4.8); Albumin/Globulin Ratio 1.3 (1.2-2.2); Alkaline Phosphatase 1132 U/L (46-116); Anion Gap 9 (7-16); Aspartate Amino Transferase 252 U/L (0-34); BUN/Creatinine Ratio 13 Ratio (12-20); Bilirubin,Total 4.7 mg/dL (0.3-1.2); Blood Urea Nitrogen 8 mg/dL (9-23); Calcium 8.5 mg/dL (8.3-10.6); Calcium (Corrected) 9.1 mg/dL (8.5-10.1); Carbon Dioxide 24.4 mMol/L (20.0-31.0); Chloride 97 mMol/L (98-107); Creatinine (Component) 0.6 mg/dL (0.6-1.3); Estimated Creatinine Clearance 79.4 mL/min (>60); Globulin 2.5 gm/dL (2.3-3.5); Glucose 64 mg/dL (74-106); Osmolality,Calculated 257 (275-295); Potassium 3.2 mMol/L (3.4-5.1); Procalcitonin 0.29 ng/ml (0.0-0.49); Sodium 130 mMol/L (136-145); Total Protein 5.7 gm/dL (5.7-8.2); Troponin I < 0.020 ng/mL (0.0-0.045); eGFR > 60 See Note
--- NOTE | 2024-11-04 12:59 | XR_ITS ---
Examination: Abdomen sonogram, Limited Date and time of exam: November 04, 2024, 1330 hrs. Indications: Onset abdominal pain beginning today Technique: Real-time argueta scale transabdominal sonographic images of the upper abdomen obtained. Findings: Absent gallbladder. Normal common bile duct 0.4 cm. Pancreatic head 2.3 cm. Liver 16 cm fatty infiltration. Normal hepatopedal portal venous flow. Patent IVC. Impression: Normal common bile duct. Mild hepatomegaly fatty infiltration no focal liver lesions.
[2024-11-04 13:11] LABS: Collection Type, Urine Clean Catch; Squamous Epithelial Cell,Urine 0 /hpf (0-5); WBC,Urine 0 /hpf (0-5)
--- NOTE | 2024-11-04 13:13 | XR_ITS ---
Examination: CTA chest, with intravenous contrast. CTA abdomen, with intravenous contrast. CTA pelvis, with intravenous contrast. 2-D sagittal and coronal reconstructions. 3-D reconstructions. Date and time of exam: November 04 thousand 25, 1502 hrs. Indications: Chest pain shortness of breath fever abdominal pain diarrhea today CTDI vol (mgy) 13. DLP (MGycm) 115. Technique: Multiple CTA images, 2.0 mm slice thickness, obtained chest, abdomen, pelvis, with the high-resolution 64 slice scanner. 100 cc Isovue-370. is administered intravenously. Sagittal and coronal 2-D reconstructions are obtained. 3-D reconstructions, angiographic images are obtained. 3-D postprocessing, including vascular maximum intensity projections. Low dose protocols were performed. One or more of the following dose reduction techniques were used; automated exposure control, adjustment of the mA and/or KV according to patient size, use of iterative reconstruction technique. Findings: No thoracic aortic aneurysmal dilatation or dissection. No pulmonary artery filling defects. Mild enlargement cardiac contour. Patchy areas of pneumonia in the left upper lobe. Pneumobilia with fatty infiltration throughout the liver. Multiple enhancing lesions throughout the liver, including posterior upper right lobe of the liver 25 mm Spleen is not enlarged Absent gallbladder Biliary stent No definite pancreatic mass. No hydronephrosis. Abdominal aorta is not enlarged. No bowel obstruction. Partial visualization normal appendix. Distended urinary bladder. Transverse prostate dimension 4.3 cm Significant osteopenia Grade 1 spondylolisthesis L5 on S1 with diffuse advanced lumbar degenerative disc disease Abundant stool in the rectum with thickening of the rectal wall. Impression: Patchy areas of pneumonia in the left upper lobe. Negative for pulmonary artery emboli. Pneumobilia, multiple enhancing lesions in the upper right lobe of the liver, recommend MRI abdomen liver follow-up pre and postcontrast Biliary stent in satisfactory position. No definite pancreatic mass. Distended urinary bladder. Mild prostatomegaly. No bowel obstruction or diverticulitis. Abundant stool in the rectum with thickening the rectal wall, clinical correlation advised
[2024-11-04 13:25] LABS: Amorphous Crystals,Urine Present (Absent); Bilirubin,Urine 1+ (Negative); Blood,Urine Negative (Negative); Clarity,Urine Clear (Clear/Hazy); Color,Urine Yellow (Lt Yel-Yel); Culture Indicated,Urine Not Indicated; Glucose, Urine 3+ (Negative); Ketones,Urine Negative (Negative); Leukocyte Esterase,Urine Negative (Negative); Nitrite,Urine Negative (Negative); PH,Urine 7.0 (5.0-7.0); Protein,Urine Negative (Neg - Trace); RBC,Urine 3 /hpf (0-3); Specific Gravity,Urine 1.008 (1.001-1.035); Urobilinogen,Urine Negative mg/dL (0.0-1.0)
[2024-11-04 14:42] LABS: Bilirubin,Direct 3.2 mg/dL (0.0-0.3); Bilirubin,Total 4.8 mg/dL (0.3-1.2); Lipase 16 U/L (12-53)
--- NOTE | 2024-11-04 18:30 | EDNOTE_ITS ---
Emergency Room Addendum <Aleah Cleary - Last Filed: 11/04/24 21:51> Addendum Narrative: 1800: Care assumed from Dr. Martinez (emergency physician). Past medical, surgical, social and family history reviewed. Vitals and home medications reviewed. Results and treatment plan discussed. I will assume the care of the patient at this time and will follow the patient, pending MRCP, MRI, and transfer. The following addendum documentation note is intended to reflect any pending information, findings, or radiology results not included in the patient?s initial chart by the previous shift scribe. RADIOLOGY Cholangiopancreatography MRI: Findings: Focal liver lesions are not depicted on this noncontrast study Absent gallbladder Magnetic susceptibility artifact at the level of the biliary tree No ascites No bowel obstruction Spleen is not enlarged No hydronephrosis Aorta normal size Mild small bowel ileus Impression: Recommend elective follow-up MRI abdomen post intravenous contrast to best assess for hepatic lesions No ascites,. Extensive magnetic susceptibility artifact at the level of the common hepatic and common bile duct Abdomen MRI: Findings: No intrahepatic biliary tract dilatation Postcontrast images demonstrate irregular enhancement throughout the liver without definite focal liver lesions Magnetic susceptibility artifact at the level of the common hepatic common bile duct No pancreatic or adrenal mass No hydronephrosis Aorta normal size No ascites No abdominal lymphadenopathy Impression: Enhancement in the liver is heterogeneous but no discrete abnormal enhancing liver lesions <Mikel Aranda DO - Last Filed: 11/05/24 03:05> Addendum Narrative: 1800: Care assumed from Dr. Martinez (emergency physician). Past medical, surgical, social and family history reviewed. Vitals and home medications reviewed. Results and treatment plan discussed. I will assume the care of the patient at this time and will follow the patient, pending MRCP, MRI, and transfer. The following addendum documentation note is intended to reflect any pending information, findings, or radiology results not included in the patient?s initial chart by the previous shift scribe. RADIOLOGY Cholangiopancreatography MRI: Findings: Focal liver lesions are not depicted on this noncontrast study Absent gallbladder Magnetic susceptibility artifact at the level of the biliary tree No ascites No bowel obstruction Spleen is not enlarged No hydronephrosis Aorta normal size Mild small bowel ileus Impression: Recommend elective follow-up MRI abdomen post intravenous contrast to best assess for hepatic lesions No ascites,. Extensive magnetic susceptibility artifact at the level of the common hepatic and common bile duct Abdomen MRI: Findings: No intrahepatic biliary tract dilatation Postcontrast images demonstrate irregular enhancement throughout the liver without definite focal liver lesions Magnetic susceptibility artifact at the level of the common hepatic common bile duct No pancreatic or adrenal mass No hydronephrosis Aorta normal size No ascites No abdominal lymphadenopathy Impression: Enhancement in the liver is heterogeneous but no discrete abnormal enhancing liver lesions Patient has been resting comfortably throughout my ER shift. Patient has been getting all of his GI care at [facility]. Patient has what appears to be the possibility of an occluded biliary stent with pneumobilia. Patient was due for dose of Zosyn so I placed an order in the computer for Zosyn 3.375 g IV. I will also give the patient clindamycin 900 mg IV. We are waiting to hear back from [facility] for a bed assignment. Patient was given food to eat here in the emergency room. There was no reason at this time to keep the patient NPO. Patient has been in stable condition. Patient will need to be signed out to oncoming physician, Dr. Grace.
[2024-11-04] MEDS: CLINDAMYCIN 900MG IVPB 900 MG in PRE-MIXED 1 BAG 50 MG IV (19:29)
--- NOTE | 2024-11-04 19:51 | PC.CM ---
Patient needs transfer to [facility] for biliary stent occlusion. ?Patient had stents placed at [facility] by Dr. Nagy back in May of this year. I contacted [facility] and initiated a transfer. I handed off the packet with 1 CD to ED charge nurse.
[2024-11-04] MEDS: DEXTROSE 50%-WATER INJ 50 ML SYRINGE IVP (20:32)
--- NOTE | 2024-11-04 21:28 | PC.NURSE ---
[facility] CONTACTED- recveived referral but did not receive packet, I refaxed paperwork- they stated they will call us back
[2024-11-05] VITALS (11 sets, daily range): BP systolic 106–174; BP diastolic 61–93; PULSE 60–89; RESP 16–20; TEMP 36.3–37.8; O2SAT 97–100
--- NOTE | 2024-11-05 01:55 | PC.NURSE ---
pt blood sugar 60 per ok to give food for hypoglycemia. as we are still waiting for acceptance.
[2024-11-05] MEDS: PIPER/TAZO 3.375 GM PREMIX 3.375 GM/50 ML BAG IV ×3 (03:14→17:45)
--- NOTE | 2024-11-05 06:03 | PD.EDADDENDU ---
Emergency Room Addendum <Vicky Nowak - Last Filed: 11/05/24 17:20> Addendum Narrative: 0600: Care assumed from Dr. Aranda, the previous shift emergency physician. Past medical, surgical, social and family history reviewed. Vitals and home medications reviewed. Results and treatment plan discussed. I will assume the care of the patient at this time and will follow the patient, pending callback from [facility]. Please refer to the emergency department record for history and examination from initial visit. 2235: Discussed case with [facility]'s transfer center. I asked them to have their hospitalist, Dr. Dubose, call me back. [facility] called us back and let us know that they are impacted with no beds. Transfer nurse told me that [facility] may have beds upstairs, but they are impacted in the ED. Awaiting callback at this time. In the meantime, I ordered the patient's at-home medications, along with Zosyn IV Q6hr. 1800: Care signed out to Dr. Aranda (emergency physician). Past medical, surgical, social and family history reviewed. Vitals and home medications reviewed. Results and treatment plan discussed. They will assume the care of the patient at this time and will follow the patient, pending transfer. <Jaquan Grace MD - Last Filed: 11/05/24 17:35> Addendum Narrative: 0600: Care assumed from Dr. Aranda, the previous shift emergency physician. Past medical, surgical, social and family history reviewed. Vitals and home medications reviewed. Results and treatment plan discussed. I will assume the care of the patient at this time and will follow the patient, pending [facility] callback. Please refer to the emergency department record for history and examination from initial visit. This section includes all my notes and documentations, including HPI, PE, and ED course. Berto Grace MD HPI: [age] y/o M/F with XXX. (short and sweet, 2 sentences) ROS: All negative except as documented in HPI. Physical Exam: General: Alert and oriented. No acute distress. Eyes: Conjunctivae and lids clear. ENT: No nasal congestion. Pharynx normal. Neck: Supple. No JVD. Heart: RRR. Lungs: No respiratory distress. Good air movement with rales. Abdomen: Soft and nontender. Normal bowel sounds. No distension. No rebound or guarding. Back: No CVA tenderness. Legs: No pedal edema. Skin: Warm and dry. Neuro: Alert and oriented X 3. I reviewed EMS notes. I reviewed all diagnostic test results: My interpretation of the chest x-ray is nml diaphragmatic edge, sharp costophreic angles, nml cardiac silhouette, no infiltrates . My review of the Venous Doppler Study report is: XYZ. My review of the XXX CT of the XXXXX is: Blood tests and urine test: XYZ. Covid/Influenza: Negative/Positive. At this point, diagnoses include: XYZ. Treatment here included: XYZ Significant improvement noted? Recommended outpatient care. Based on my best medical judgment, made decision no further evaluation or treatment indicated at this time. Patient understands and agrees to the customized discharge instructions and printed, see below. Discharge instructions from Dr. Grace: --No physical exertion --No smoking or exposure to smoking or pets or dust or cold or humidity. --Prescriptions: --When resting or sitting or sleeping (elevate your feet/ankles above your waist level for your leg swelling?) (keep area warm and dry), (take acetaminophen and ibuprofen up to every 6 hours for pain or fevers/sweats/shakes?), (no sports or PE until completely healed?) --See a private doctor on X/ for recheck. Ask to review all test results and official radiology reports, to make sure you receive all necessary follow-ups and monitoring. --Ask for help until you are completely better. --Seek immediate medical care with worsening or with any concerns.
--- NOTE | 2024-11-05 06:16 | PC.NURSE ---
Contacted [facility] for update the transfer center stated they are presenting it to the day team and will contact us once its reviewed by team.
[2024-11-05 07:05] LABS: Basophils # (Auto) 0.0 Thou/mm3 (0.0-0.2); Basophils % (Auto) 0 % (0-2.5); Eosinophils # (Auto) 0.1 Thou/mm3 (0.0-0.5); Eosinophils % (Auto) 1 % (0-10); Hematocrit 36.5 % (41.0-53.0); Hemoglobin 13.1 g/dL (13.5-16.0); Immature Granulocytes Auto 0.04 Thou/mm3 (0.00-0.00); Lymphocytes # (Auto) 0.5 Thou/mm3 (1.0-4.8); Lymphocytes % (Auto) 6 % (10-50); Mean Corpuscular HGB Conc 35.9 g/dl (31.0-37.0); Mean Corpuscular Hemoglobin 34.5 pg (25.0-35.0); Mean Corpuscular Volume 96 fL (80-100); Monocytes # (Auto) 0.5 Thou/mm3 (0.0-0.8); Monocytes % (Auto) 6 % (0-12); Neutrophils # (Auto) 6.7 Thou/mm3 (1.8-7.7); Neutrophils % (Auto) 86 % (37-80); Nucleated Red Blood Cell # 0.00 Thou/mm3 (0.00-0.00); Nucleated Red Blood Cell % 0 /100 WBC (0); Platelet Count 150 Thou/mm3 (140-440); RDW Standard Deviation 50.8 fL (35.1-43.9); Red Blood Count 3.80 Miln/mm3 (4.50-5.90); White Blood Count 7.8 Thou/mm3 (3.8-10.6)
[2024-11-05 08:12] LABS: Alanine Aminotransferase 181 U/L (10-49); Albumin, Serum 3.0 gm/dL (3.4-4.8); Albumin/Globulin Ratio 1.2 (1.2-2.2); Alkaline Phosphatase 933 U/L (46-116); Anion Gap 6 (7-16); Aspartate Amino Transferase 186 U/L (0-34); BUN/Creatinine Ratio 12 Ratio (12-20); Bilirubin,Total 5.6 mg/dL (0.3-1.2); Blood Urea Nitrogen 7 mg/dL (9-23); Calcium 8.5 mg/dL (8.3-10.6); Calcium (Corrected) 9.3 mg/dL (8.5-10.1); Carbon Dioxide 29.2 mMol/L (20.0-31.0); Chloride 99 mMol/L (98-107); Creatinine (Component) 0.6 mg/dL (0.6-1.3); Estimated Creatinine Clearance 79.4 mL/min (>60); Globulin 2.6 gm/dL (2.3-3.5); Glucose 102 mg/dL (74-106); Osmolality,Calculated 266 (275-295); Potassium 3.9 mMol/L (3.4-5.1); Sodium 134 mMol/L (136-145); Total Protein 5.6 gm/dL (5.7-8.2); eGFR > 60 See Note
--- NOTE | 2024-11-05 08:16 | PC.CC ---
Addendum entered by Dory Pascual RN 11/05/24 15:37: Spoke to Ester at [facility] to let her know patient is refusing transfer to any other facility and to keep case open. She states no the case can not stay open because they are not accepting any patients at this time. RN asked if they need to call every 12 hours Ester states no to call back on Wednesday or tomorrow after 1000 and they do bed placement huddle. Addendum entered by Dory Pascual RN 11/05/24 14:58: 1250- Destinee from [facility] called back at this time and wanted patient clinicals, explained patient did not want to be transferred to another facility, phone call transferred to Dr. Grace 1245- made aware by charge nurse that Dr. Grace spoke to patient who only wants to be transferred to [facility] and is willing to wait Addendum entered by Dory Pascual RN 11/05/24 12:09: 1202- Spoke to iTrso at [facility] and faxed over chart for review 1158- Spoke to Juan Ramon at [facility] to inquire about a doctor calling back, Juan Ramon stated that it did not matter unless the provider wanted a consult because the hospital is on diversion and at capacity bed placement would still decline patient. Addendum entered by Dory Pascual RN 11/05/24 10:43: 1036- Spoke to Marisela at [facility] relaying that Dr. Grace wants to do a doctor to doctor, she states she will put out a page to the doctor to call back 1034-Spoke to Dr. Grace who states no one called and got report from him and requesting to speak to doctor because patient can not be discharged. 1030-Ester from [facility] called back and states the patient is declined by Dr. Dubose internal medicine due to capacity and that patient can be seen on an outpatient basis with [facility]. Phone number to make appointment is [phone]- Original Note: Spoke to Ester at [facility] for update, she states that case is still waiting to be presented to medical team and will call back with update
[2024-11-05 09:13] LABS: Bilirubin,Direct 4.3 mg/dL (0.0-0.3)
[2024-11-05] MEDS: VANCOMYCIN/NS 750 MG IVPB 750 MG/150 ML BAG 120 MG IV ×2 (11:30→23:07)
--- NOTE | 2024-11-05 18:20 | PD.EDADDENDU ---
Emergency Room Addendum <Aleah Cleary - Last Filed: 11/06/24 02:17> Addendum Narrative: 1800: Care assumed from Dr. Grace (emergency physician). Past medical, surgical, social and family history reviewed. Vitals and home medications reviewed. Results and treatment plan discussed. I will assume the care of the patient at this time and will follow the patient, pending transfer to [facility]. The following addendum documentation note is intended to reflect any pending information, findings, or radiology results not included in the patient?s initial chart by the previous shift scribe. 0600: Care assumed by Dr. Grace (emergency physician). Past medical, surgical, social and family history reviewed. Vitals and home medications reviewed. Results and treatment plan discussed. They will assume the care of the patient at this time and will follow the patient, pending transfer to [facility]. <Mikel Allison DO Manoj - Last Filed: 11/06/24 03:17> Addendum Narrative: 1800: Care assumed from Dr. Grace (emergency physician). Past medical, surgical, social and family history reviewed. Vitals and home medications reviewed. Results and treatment plan discussed. I will assume the care of the patient at this time and will follow the patient, pending transfer to [facility]. The following addendum documentation note is intended to reflect any pending information, findings, or radiology results not included in the patient?s initial chart by the previous shift scribe. 0600: Care assumed by Dr. Grace (emergency physician). Past medical, surgical, social and family history reviewed. Vitals and home medications reviewed. Results and treatment plan discussed. They will assume the care of the patient at this time and will follow the patient, pending transfer to [facility]. Patient has remained in stable condition throughout the entire ER shift.
[2024-11-05 22:03] LABS: Lipase 15 U/L (12-53)
[2024-11-05 22:21] LABS: Hepatitis A Antibody IgM Non Reactive (Non React); Hepatitis B Core Antibody IgM Non Reactive (Non React); Hepatitis B Surface Antigen Non Reactive (Non React); Hepatitis C Antibody Non Reactive (Non React)
[2024-11-06] VITALS (14 sets, daily range): BP systolic 123–187; BP diastolic 64–107; PULSE 57–69; RESP 15–19; TEMP 36.4–36.8; O2SAT 95–100
--- NOTE | 2024-11-06 07:54 | PC.NURSE ---
PT GIVEN BREAKFAST TRAY AT THIS TIME.
--- NOTE | 2024-11-06 08:02 | PC.CC ---
Addendum entered by Meg Crarillo RN 11/06/24 17:21: 1700: Notes from 11/05 and current labs and vs for 11/06 printed and added to the transfer packet located in the ED. Addendum entered by Meg Carrillo RN 11/06/24 12:38: 1235: received called from Sienna, pt is accepted to the [facility] by Dr. Vazquez pending bed availability. Bed control: . Updated Charge nurse Marin. Addendum entered by Meg Carrillo RN 11/06/24 12:07: 1205: called and spoke to Sienna at [facility], she stated the team is reviewing the case at this time. She provided the our ED phone number to the team at [facility] for peer to peer. Informed her to contact me if any issues connecting. Addendum entered by Meg Carrillo RN 11/06/24 10:26: 1017: called and spoke to Sienna at [facility], she confirmed receipt of clinicals. Transfer request reinitiated. A summary was provided of conversations from yesterday, I informed her that Dr. Grace is requesting a peer to peer. She stated she will page the team. Addendum entered by Meg Carrillo RN 11/06/24 10:10: 1011: clinicals sent to [facility]. Original Note: 0736: spoke to Marin, informed her of plan. 0726: received call from Dr Grace stating to call [facility]. i informed him the plan is to reinitiate the transfer request after 10am per [facility].
[2024-11-06 09:34] LABS: Basophils # (Auto) 0.0 Thou/mm3 (0.0-0.2); Basophils % (Auto) 1 % (0-2.5); Eosinophils # (Auto) 0.1 Thou/mm3 (0.0-0.5); Eosinophils % (Auto) 2 % (0-10); Hematocrit 42.1 % (41.0-53.0); Hemoglobin 14.7 g/dL (13.5-16.0); Immature Granulocytes Auto 0.07 Thou/mm3 (0.00-0.00); Lymphocytes # (Auto) 0.7 Thou/mm3 (1.0-4.8); Lymphocytes % (Auto) 11 % (10-50); Mean Corpuscular HGB Conc 34.9 g/dl (31.0-37.0); Mean Corpuscular Hemoglobin 34.3 pg (25.0-35.0); Mean Corpuscular Volume 98 fL (80-100); Monocytes # (Auto) 0.3 Thou/mm3 (0.0-0.8); Monocytes % (Auto) 6 % (0-12); Neutrophils # (Auto) 4.6 Thou/mm3 (1.8-7.7); Neutrophils % (Auto) 79 % (37-80); Nucleated Red Blood Cell # 0.00 Thou/mm3 (0.00-0.00); Nucleated Red Blood Cell % 0 /100 WBC (0); Platelet Count 156 Thou/mm3 (140-440); RDW Standard Deviation 53.4 fL (35.1-43.9); Red Blood Count 4.28 Miln/mm3 (4.50-5.90); White Blood Count 5.8 Thou/mm3 (3.8-10.6)
[2024-11-06 09:53] LABS: Alanine Aminotransferase 154 U/L (10-49); Albumin, Serum 3.3 gm/dL (3.4-4.8); Albumin/Globulin Ratio 1.2 (1.2-2.2); Alkaline Phosphatase 984 U/L (46-116); Anion Gap 9 (7-16); Aspartate Amino Transferase 108 U/L (0-34); BUN/Creatinine Ratio 10 Ratio (12-20); Bilirubin,Direct 1.5 mg/dL (0.0-0.3); Bilirubin,Total 2.3 mg/dL (0.3-1.2); Blood Urea Nitrogen 6 mg/dL (9-23); Calcium 8.6 mg/dL (8.3-10.6); Calcium (Corrected) 9.2 mg/dL (8.5-10.1); Carbon Dioxide 27.1 mMol/L (20.0-31.0); Chloride 97 mMol/L (98-107); Creatinine (Component) 0.6 mg/dL (0.6-1.3); Estimated Creatinine Clearance 79.4 mL/min (>60); Globulin 2.7 gm/dL (2.3-3.5); Glucose 182 mg/dL (74-106); Osmolality,Calculated 268 (275-295); Potassium 3.8 mMol/L (3.4-5.1); Sodium 133 mMol/L (136-145); Total Protein 6.0 gm/dL (5.7-8.2); Vancomycin,Trough 5.4 mcg/mL (5.0-10.0); eGFR > 60 See Note
[2024-11-06] MEDS: VANCOMYCIN/NS 1 GM IVPB 200 ML IV ×2 (10:42→22:42)
--- NOTE | 2024-11-06 16:54 | PD.EDADDENDU ---
Emergency Room Addendum Addendum Narrative: 0600: Care assumed from Dr. Aranda, the previous shift emergency physician. Past medical, surgical, social and family history reviewed. Vitals and home medications reviewed. I will assume the care of the patient at this time, pending transfer to [facility]. Please refer to the emergency department record for history and examination from initial visit.?The following addendum documentation note is intended to reflect any pending information, findings, or radiology results not included in the patient?s initial chart. 1135h: I spoke with transfer nurse and physician at [facility]. Discussed patients PMHx, HPI, ED course, exam findings, labs, and radiology results. Patent has been accepted by Dr. Yuri Vazquez at [facility]. Pending bed availability. 1800h: Patient signed out to Dr. Castillo pending bed availability for transfer.
--- NOTE | 2024-11-06 18:13 | PD.EDADDENDU ---
Emergency Room Addendum <Vicky Nowak - Last Filed: 11/07/24 03:11> Addendum Narrative: I took over the care from Dr. Grace at 6 PM on 11/06/2024, see his notes for complete H&P and ED course. <Cullen Castillo MD - Last Filed: 11/07/24 03:11> Addendum Narrative: I took over the care from Dr. Grace at 6 PM on 11/06/2024, see his notes for complete H&P and ED course. Patient was accepted for transfer to [facility]. Waiting for a bed. During my watch, the patient remained stable. At 6 AM on 11/07/2024, the care of the patient was transferred to Dr. Grace. Cullen Castillo MD
[2024-11-06] MEDS: TAMSULOSIN HCL 0.4 MG CAPSULE PO (18:25)
[2024-11-07] VITALS (13 sets, daily range): BP systolic 115–167; BP diastolic 58–87; PULSE 55–74; RESP 16–19; TEMP 36.3–36.9; O2SAT 95–100
[2024-11-07 06:51] LABS: Basophils # (Auto) 0.0 Thou/mm3 (0.0-0.2); Basophils % (Auto) 1 % (0-2.5); Eosinophils # (Auto) 0.1 Thou/mm3 (0.0-0.5); Eosinophils % (Auto) 1 % (0-10); Hematocrit 41.7 % (41.0-53.0); Hemoglobin 14.5 g/dL (13.5-16.0); Immature Granulocytes Auto 0.06 Thou/mm3 (0.00-0.00); Lymphocytes # (Auto) 0.6 Thou/mm3 (1.0-4.8); Lymphocytes % (Auto) 12 % (10-50); Mean Corpuscular HGB Conc 34.8 g/dl (31.0-37.0); Mean Corpuscular Hemoglobin 33.9 pg (25.0-35.0); Mean Corpuscular Volume 97 fL (80-100); Monocytes # (Auto) 0.4 Thou/mm3 (0.0-0.8); Monocytes % (Auto) 7 % (0-12); Neutrophils # (Auto) 4.1 Thou/mm3 (1.8-7.7); Neutrophils % (Auto) 78 % (37-80); Nucleated Red Blood Cell # 0.00 Thou/mm3 (0.00-0.00); Nucleated Red Blood Cell % 0 /100 WBC (0); Platelet Count 165 Thou/mm3 (140-440); RDW Standard Deviation 53.0 fL (35.1-43.9); Red Blood Count 4.28 Miln/mm3 (4.50-5.90); White Blood Count 5.3 Thou/mm3 (3.8-10.6)
[2024-11-07 07:17] LABS: Alanine Aminotransferase 125 U/L (10-49); Albumin, Serum 3.2 gm/dL (3.4-4.8); Albumin/Globulin Ratio 1.1 (1.2-2.2); Alkaline Phosphatase 893 U/L (46-116); Anion Gap 8 (7-16); Aspartate Amino Transferase 75 U/L (0-34); BUN/Creatinine Ratio 14 Ratio (12-20); Bilirubin,Total 1.8 mg/dL (0.3-1.2); Blood Urea Nitrogen 7 mg/dL (9-23); Calcium 8.4 mg/dL (8.3-10.6); Calcium (Corrected) 9.0 mg/dL (8.5-10.1); Carbon Dioxide 27.8 mMol/L (20.0-31.0); Chloride 100 mMol/L (98-107); Creatinine (Component) 0.5 mg/dL (0.6-1.3); Estimated Creatinine Clearance 95.3 mL/min (>60); Globulin 2.8 gm/dL (2.3-3.5); Glucose 149 mg/dL (74-106); Osmolality,Calculated 272 (275-295); Potassium 3.8 mMol/L (3.4-5.1); Sodium 136 mMol/L (136-145); Total Protein 6.0 gm/dL (5.7-8.2); eGFR > 60 See Note
--- NOTE | 2024-11-07 07:47 | PC.CM ---
Patient accepted to the [facility] by Dr. Vazquez pending bed availability. Bed control: .
[2024-11-07] MEDS: ASPIRIN EC 81 MG TABEC PO (07:56)
--- NOTE | 2024-11-07 08:48 | PC.CM ---
Addendum entered by Zoila Umanzor RN 11/07/24 19:57: Pending bed availability at [facility]. The number to call and follow up on bed is Patient placement at [facility] phone # [phone]. Original Note: 0800 I spoke to Soledad with patient placement at [facility] phone # [phone]. She states they have patient on their list but they are still at capacity and they have no beds at this time. She took my number and stated she will call if a bed opens up. I let her know that patient is still in our ED and patient has surgery with them and that is why he needs to go back to them.
--- NOTE | 2024-11-07 09:59 | PC.NURSE ---
PATIENT ABLE TO AMBULATE TO RESTROOM INDEPENDENTLY. PATIENT ATE COMPLETE BREAKFAST TRAY. PATIENT VITALS STABLE. PLAN OF CARE ONGOING
[2024-11-07 10:51] LABS: Basophils # (Auto) 0.0 Thou/mm3 (0.0-0.2); Basophils % (Auto) 1 % (0-2.5); Eosinophils # (Auto) 0.1 Thou/mm3 (0.0-0.5); Eosinophils % (Auto) 2 % (0-10); Hematocrit 41.8 % (41.0-53.0); Hemoglobin 14.6 g/dL (13.5-16.0); Immature Granulocytes Auto 0.07 Thou/mm3 (0.00-0.00); Lymphocytes # (Auto) 0.8 Thou/mm3 (1.0-4.8); Lymphocytes % (Auto) 13 % (10-50); Mean Corpuscular HGB Conc 34.9 g/dl (31.0-37.0); Mean Corpuscular Hemoglobin 34.7 pg (25.0-35.0); Mean Corpuscular Volume 99 fL (80-100); Monocytes # (Auto) 0.5 Thou/mm3 (0.0-0.8); Monocytes % (Auto) 8 % (0-12); Neutrophils # (Auto) 4.7 Thou/mm3 (1.8-7.7); Neutrophils % (Auto) 76 % (37-80); Nucleated Red Blood Cell # 0.00 Thou/mm3 (0.00-0.00); Nucleated Red Blood Cell % 0 /100 WBC (0); Platelet Count 174 Thou/mm3 (140-440); RDW Standard Deviation 53.6 fL (35.1-43.9); Red Blood Count 4.21 Miln/mm3 (4.50-5.90); White Blood Count 6.2 Thou/mm3 (3.8-10.6)
[2024-11-07] MEDS: VANCOMYCIN/NS 1 GM IVPB 200 ML IV (11:09)
[2024-11-07 11:13] LABS: Alanine Aminotransferase 118 U/L (10-49); Albumin, Serum 3.2 gm/dL (3.4-4.8); Albumin/Globulin Ratio 1.2 (1.2-2.2); Alkaline Phosphatase 879 U/L (46-116); Anion Gap 8 (7-16); Aspartate Amino Transferase 76 U/L (0-34); BUN/Creatinine Ratio 12 Ratio (12-20); Bilirubin,Direct 1.1 mg/dL (0.0-0.3); Bilirubin,Total 1.6 mg/dL (0.3-1.2); Blood Urea Nitrogen 7 mg/dL (9-23); Calcium 8.4 mg/dL (8.3-10.6); Calcium (Corrected) 9.0 mg/dL (8.5-10.1); Carbon Dioxide 27.8 mMol/L (20.0-31.0); Chloride 97 mMol/L (98-107); Creatinine (Component) 0.6 mg/dL (0.6-1.3); Estimated Creatinine Clearance 79.4 mL/min (>60); Globulin 2.7 gm/dL (2.3-3.5); Glucose 281 mg/dL (74-106); Osmolality,Calculated 274 (275-295); Potassium 4.1 mMol/L (3.4-5.1); Sodium 133 mMol/L (136-145); Total Protein 5.9 gm/dL (5.7-8.2); eGFR > 60 See Note
--- NOTE | 2024-11-07 12:21 | PC.NURSE ---
DR. VILLEGAS MADE AWARE THAT PATIENT'S BLOOD SUGAR 285. PATIENT HAS NOT RECEIVED ANY INSULIN OR DIABETES MEDICATION SINCE HE HAS BEEN IN ED. PER MD HE WILL PUT IN ORDER FOR INSULIN
[2024-11-07] MEDS: INSULIN DEGLUDEC 5 UNIT/0.05 ML (PER 5 UNITS) 14 UNIT SC (13:02)
--- NOTE | 2024-11-07 14:27 | PD.EDADDENDU ---
Emergency Room Addendum Addendum Narrative: 0600: Care assumed from Dr. Castillo, the previous shift emergency physician. Past medical, surgical, social and family history reviewed. Vitals and home medications reviewed. I will assume the care of the patient at this time, pending bed availability for transfer at [facility]. Please refer to the emergency department record for history and examination from initial visit.?The following addendum documentation note is intended to reflect any pending information, findings, or radiology results not included in the patient?s initial chart. 1025: I spoke with our transfer nurse Zoila. Reports at this time we are still waiting for an ER bed or inpatient bed to become available. Plan to repeat labs today. I spoke with GI Dr. Khan, discussed repeat lab results. States he will get ahold of GI at [facility]. 1800: Patient signed out to Dr. Castillo pending transfer to [facility].
--- NOTE | 2024-11-07 18:28 | PD.EDADDENDU ---
Emergency Room Addendum <Vicky Nowak - Last Filed: 11/07/24 21:40> Addendum Narrative: I took over the care from Dr. Grace at 6 PM on 11/07/2024, see his notes for complete H&P and ED course. Patient was accepted for transfer to [facility]. During my watch, the patient remained stable. Cullen Castillo MD <Cullen Castillo MD - Last Filed: 11/08/24 01:50> Addendum Narrative: I took over the care from Dr. Grace at 6 PM on 11/07/2024, see his notes for complete H&P and ED course. Patient was accepted for transfer to [facility]. Patient left at 0041 on 11/08/24. During my watch, the patient remained stable. Cullen Castillo MD
--- NOTE | 2024-11-07 21:46 | PC.NURSE ---
Addendum entered by Kathy Cleary 11/07/24 22:03: CORRECTION ; [facility] Original Note: 2145, PT ACCEPTED BY DR.JAY ARREDONDO TO [facility], [address] [id number], [id number], SPOKE TO CHRISTY.
--- NOTE | 2024-11-07 22:20 | PC.NURSE ---
WAITING FOR TROUGH TO [facility]
--- NOTE | 2024-11-07 22:25 | PC.NURSE ---
reach contacted for possible helo transfer to [facility]- will contact us back if they accept
--- NOTE | 2024-11-07 22:44 | PC.NURSE ---
[facility] accepts ETA to airport is midnight 11/08/2024. pt updated on arrival time
[2024-11-07 23:00] LABS: Vancomycin,Trough 9.4 mcg/mL (5.0-10.0)
--- NOTE | 2024-11-08 00:26 | PC.NURSE ---
autumn not given pt going to [facility] reach here to get pt
== END 2024-11-08 00:33 | disposition short-term general hospital (02) ==
PROVIDERS: Emergency Medicine; Emergency Provider Emergency Medicine; PCP Family Medicine
DX: A41.9 Sepsis, unspecified organism (principal); T85.590A Other mechanical complication of bile duct prosthesis, initial encounter; J18.9 Pneumonia, unspecified organism; R17 Unspecified jaundice; Y83.8 Other surgical procedures as the cause of abnormal reaction of the patient, or of later complication, without mention of misadventure at the time of the procedure; Z75.1 Person awaiting admission to adequate facility elsewhere; Z87.891 Personal history of nicotine dependence
CPT/HCPCS: 36415; 70450; 71045; 71275; 74174; 74181; 74183; 76705; 80053; 80074; 80202; 81001; 82247; 82248; 83605; 83690; 83880; 84145; 84484; 85025; 85610; 85730; 87040; 87400; 87811; 93005; 96365; 96366; 99284; A4649; A9577; J0736; J1815; J2543; J3370; J3373; J7120; Q9967; A9270

== ENCOUNTER → 2024-12-22 | Outpatient (CLI) | payer MEDICARE, BC, SELFPAY ==
--- NOTE | 2024-12-22 11:00 | XR_ITS ---
Examination: CT chest, without intravenous contrast. Sagittal and coronal 2-D reconstructions. Exam date and time: December 22, 2024, 1039 hours INDICATIONS: Congestion 2 weeks, preop stent removal CTDI:vol (mGy) 6.97 DLP: (mGycm) 240 Technique: Multiple 3.0 mm axial sections of the chest to been obtained. Bone and lung density settings are obtained. Sagittal and coronal 2-D reconstructions have been obtained. Low dose protocols were performed. One or more of the following dose reduction techniques were used; automated exposure control, adjustment of the mA and/or KV according to patient size, use of iterative reconstruction technique. 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
== END | disposition home or self-care (01) ==
PROVIDERS: PCP Family Medicine; Referring Provider Family Medicine; Visit Provider Family Medicine
DX: R91.8 Other nonspecific abnormal finding of lung field (principal)
CPT/HCPCS: 71250

== ENCOUNTER → 2025-01-10 | Outpatient (CLI) | payer MEDICARE, BC, SELFPAY ==
--- NOTE | 2025-01-10 12:00 | XR_ITS ---
MRI abdomen, without contrast. MRCP Date and time of exam: January 10, 2025, 1224 hours, comparison 11/04/2024 INDICATIONS: History abdominal pain and blockage to the bile duct October 2024 Technique: Multiple axial and coronal images of the abdomen have been obtained with the Siemens 1.5T MRI scanner. Images obtained included T1 weighted transverse images, T2-weighted transverse images, T2-weighted transverse images fat-suppressed, T2 weighted haste fat suppressed transverse images, T1 weighted images, in and out of phase images, T2-weighted coronal images, breath hold, T2 weighted haze coronal images as well as T2 weighted coronal thick slab images, MRCP. Findings: Absent gallbladder Mild intrahepatic biliary tract dilatation Common bile duct 8 mm no common bile duct stones No pancreatic mass or peripancreatic edema Pancreatic duct is dilated up to 3.5 mm No hydronephrosis No ascites Prominent lumbar dextroscoliosis IMPRESSION: Common bile duct 8 mm, no common hepatic or common bile duct stones Mild dilatation pancreatic duct No pancreatic mass or peripancreatic edema
== END | disposition home or self-care (01) ==
PROVIDERS: Referring Provider Specialist; Visit Provider Specialist
DX: K86.89 Other specified diseases of pancreas (principal)
CPT/HCPCS: 74181

== ENCOUNTER → 2025-01-29 | Outpatient (BNVA) | payer MEDICARE, BC, SELFPAY | END | disposition home or self-care (01) | PROVIDERS: Visit Provider Urology | DX: N40.1 Benign prostatic hyperplasia with lower urinary tract symptoms (principal); N13.8 Other obstructive and reflux uropathy; K83.1 Obstruction of bile duct; E11.9 Type 2 diabetes mellitus without complications; Z98.890 Other specified postprocedural states; Z87.442 Personal history of urinary calculi; Z87.891 Personal history of nicotine dependence | CPT/HCPCS: 81003; 99212; G0463 ==